=== PATIENT | female | born 1960 | race African-American/Black ===

== ENCOUNTER 2018-04-24 04:10 | Emergency (ER) | payer OTHER ==
[~2018-04-24] VITALS: Ht 167.6 cm; Wt 89.8 kg
[~2018-04-24 04:10] MED LIST: CYCLOBENZAPRINE10 MG ORAL; GABAPENTIN; IBUPROFEN600 MG ORAL; IMITREX50 MG ORAL; MACROBID100 MG ORAL; MOBIC7.5 MG ORAL; NKM; NORCO 5-325 TA1 EACH ORAL; NORCO 7.5/3251 EA ORAL; PERCOCET 5-3251 EACH ORAL; TRAMADOL HCL50 MG ORAL; VALIUM2 MG ORAL; VICODIN 5-5001 EACH PO; walker
[2018-04-24] MEDS ORDERED: KADIAN20 M1 PO (04:32)
[2018-04-24] MEDS ORDERED: GABAPENTIN100 MG ORAL (04:32)
--- NOTE | 2018-04-24 04:32 | Emergency Room Report ---
History of Present Illness General Chief Complaint: Abdominal pain Source: Patient Present Illness HPI Patient is a 58-year-old female presented after increased abdominal pain. Patient prior history of chronic pain. She had prior hysterectomy. The patient reports having increased nausea and vomiting. The patient has a prior history of opiate dependence due to chronic pain. The patient states takes morphine as well as Percocet The patient reports having prior history of chronic joint pain as well as neuropathy. Allergies: Coded Allergies: ASPIRIN (Unverified Adverse Reaction, Mild, GETS NAUSEATED., 02/28/16) PT STATES SHE GETS NAUSEATED. Patient History Reviewed Nursing Documentation: PMH: Agreed; PSxH: Agreed Nursing Documentation-PMH Hx Neurological Problems: No - hysterectomy Review of Systems All Other Systems: negative except mentioned in HPI Physical Exam Sp02 EP Interpretation: reviewed, normal General Appearance: normal inspection, well appearing, no apparent distress, alert, GCS 15 Head: atraumatic ENT: normal ENT inspection, hearing grossly normal, normal voice Neck: normal inspection, full range of motion, supple, no bony tend Respiratory: normal inspection, lungs clear, normal breath sounds, no respiratory distress, no retraction, no wheezing Cardiovascular #1: regular rate, rhythm, no edema Gastrointestinal: normal inspection, normal bowel sounds, non tender, soft, no guarding, no hernia Genitourinary: no CVA tenderness Musculoskeletal: normal inspection, back normal, normal range of motion Neurologic: normal inspection, alert, oriented x3, responsive, transmission specialist III-XII nml as tested, speech normal Psychiatric: normal inspection, judgement/insight normal, mood/affect normal Skin: normal inspection, normal color, no rash Medical Decision Making Diagnostic Impression: Primary Impression: Abdominal pain Additional Impressions: Opiate withdrawal Substance abuse ER Course Patient presented for abdominal pain. Differential diagnoses included ischemic bowel, appendicitis, perforated viscus, abdominal aortic aneurysm, inferior myocardial infarction, viral gastroenteritis. Because of complexity of patient' s case laboratory testing and imaging studies were ordered.Patient was noted to have evidence of substance abuse on laboratory testing. The CT abdomen pelvis read by radiology showed no acute intra-abdominal pathology. The patient is advised to follow-up with her primary care physician she is given prescription for Keflex for presumed bacterial enteritis.The patient is advised to follow up with primary care doctor in 1-2 days. Patient is advised to return if any worsening condition or if any changes in status that are concerning. This report is dictated with [employer] technician software which may occasionally lead to discrepancies related to use of this software. Labs Test 04/24/18 04:27 04/24/18 06:00 White Blood Count 21.9 K/UL (4.8-10.8) Red Blood Count 5.20 M/UL (4.20-5.40) Hemoglobin 15.3 G/DL (12.0-16.0) Hematocrit 47.4 % (37.0-47.0) Mean Corpuscular Volume 91 FL (80-99) Mean Corpuscular Hemoglobin 29.5 PG (27.0-31.0) Mean Corpuscular Hemoglobin Concent 32.4 G/DL (32.0-36.0) Red Cell Distribution Width 15.0 % (11.6-14.8) Platelet Count 376 K/UL (150-450) Mean Platelet Volume 6.8 FL (6.5-10.1) Neutrophils (%) (Auto) % (45.0-75.0) Lymphocytes (%) (Auto) % (20.0-45.0) Monocytes (%) (Auto) % (1.0-10.0) Eosinophils (%) (Auto) % (0.0-3.0) Basophils (%) (Auto) % (0.0-2.0) Neutrophils % (Manual) 82 % (45-75) Lymphocytes % (Manual) 10 % (20-45) Monocytes % (Manual) 5 % (1-10) Eosinophils % (Manual) 0 % (0-3) Basophils % (Manual) 0 % (0-2) Band Neutrophils 3 % (0-8) Platelet Estimate Adequate Platelet Morphology Normal Sodium Level 143 MMOL/L (136-145) Potassium Level 3.9 MMOL/L (3.5-5.1) Chloride Level 104 MMOL/L (98-107) Carbon Dioxide Level 29 MMOL/L (21-32) Anion Gap 11 mmol/L (5-15) Blood Urea Nitrogen 11 mg/dL (7-18) Creatinine 1.1 MG/DL (0.55-1.30) Estimat Glomerular Filtration Rate > 60 mL/min (>60) Glucose Level 179 MG/DL (74-106) Calcium Level 9.8 MG/DL (8.5-10.1) Total Bilirubin 0.5 MG/DL (0.2-1.0) Aspartate Amino Transf (AST/SGOT) 25 U/L (15-37) Alanine Aminotransferase (ALT/SGPT) 14 U/L (12-78) Alkaline Phosphatase 90 U/L (46-116) Total Protein 9.4 G/DL (6.4-8.2) Albumin 4.1 G/DL (3.4-5.0) Globulin 5.3 g/dL Albumin/Globulin Ratio 0.8 (1.0-2.7) Lipase 75 U/L (73-393) Urine Color Yellow Urine Appearance Clear Urine pH 6 (4.5-8.0) Urine Specific Baker 1.020 (1.005-1.035) Urine Protein 3+ (NEGATIVE) Urine Glucose (UA) Negative (NEGATIVE) Urine Ketones 1+ (NEGATIVE) Urine Occult Blood 4+ (NEGATIVE) Urine Nitrite Negative (NEGATIVE) Urine Bilirubin Negative (NEGATIVE) Urine Urobilinogen 1 MG/DL (0.0-1.0) Urine Leukocyte Esterase 1+ (NEGATIVE) Urine RBC 10-15 /HPF (0 - 2) Urine WBC 0-2 /HPF (0 - 2) Urine Squamous Epithelial Cells Few /LPF (NONE/OCC) Urine Amorphous Sediment Few /LPF (NONE) Urine Bacteria Few /HPF (NONE) Urine Mucus Moderate /LPF (NONE/OCC) Urine Opiates Screen Positive (NEGATIVE) Urine Barbiturates Screen Negative (NEGATIVE) Phencyclidine (PCP) Screen Negative (NEGATIVE) Urine Amphetamines Screen Negative (NEGATIVE) Urine Benzodiazepines Screen Negative (NEGATIVE) Urine Cocaine Screen Positive (NEGATIVE) Urine Marijuana (THC) Screen Positive (NEGATIVE) Status: improved Disposition: HOME, SELF-CARE Condition: Stable Scripts Dicyclomine Hcl* (DICYCLOMINE HCL*) 10 Mg Capsule 10 MG PO QID, #30 CAP Prov: Silvino Martinez MD 04/24/18 Ondansetron (Zofran) 4 Mg Tablet 4 MG ORAL Q6H PRN for Nausea & Vomiting, #20 TAB Prov: Silvino Martinez MD 04/24/18 Cephalexin* (KEFLEX*) 500 Mg Capsule 500 MG ORAL EVERY 6 HOURS, #28 CAP Prov: Silvino Martinez MD 04/24/18 Silvino Martinez MD Apr 24, 2018 04:32
[2018-04-24 04:36] VITALS: BP 146/120
[2018-04-24] MEDS ORDERED: Mylanta II UD 30ml ORAL ONE (05:00)
[2018-04-24] MEDS ORDERED: Lidocaine 2% Visc 15ml soln ORAL ONE (05:00)
[2018-04-24] MEDS ORDERED: Dicyclomine HCl 10mg/5ml oral soln ORAL ONE (05:00)
[2018-04-24] MEDS ORDERED: Morphine Sulfate 4mg/ml Inj (IV USE ONLY) IVP ONE (05:00)
[2018-04-24 05:13] LABS: HEMATOCRIT 47.4 % (37.0-47.0); HEMOGLOBIN 15.3 G/DL (12.0-16.0); MEAN CORPUSCULAR VOLUME 91 FL (80-99); PLATELET COUNT 376 K/UL (150-450); WHITE BLOOD COUNT 21.9 K/UL (4.8-10.8)
[2018-04-24 05:29] LABS: ANION GAP 11 mmol/L (5-15); BLOOD UREA NITROGEN 11 mg/dL (7-18); CALCIUM 9.8 MG/DL (8.5-10.1); CARBON DIOXIDE 29 MMOL/L (21-32); CHLORIDE 104 MMOL/L (98-107); CREATININE 1.1 MG/DL (0.55-1.30); POTASSIUM 3.9 MMOL/L (3.5-5.1); SODIUM 143 MMOL/L (136-145)
[2018-04-24 05:32] LABS: ALANINE AMINOTRANSFERASE 14 U/L (12-78); ALBUMIN 4.1 G/DL (3.4-5.0); ALBUMIN/GLOBULIN RATIO 0.8 (1.0-2.7); ALKALINE PHOSPHATASE 90 U/L (46-116); ASPARTATE AMINO TRANSFERASE 25 U/L (15-37); BILIRUBIN,TOTAL 0.5 MG/DL (0.2-1.0)
[2018-04-24 05:59] LABS: APPEARANCE,URINE CLEAR; BILIRUBIN, URINE NEGATIVE (NEGATIVE); GLUCOSE, URINE (UA) NEGATIVE (NEGATIVE); KETONES,URINE 1+ (NEGATIVE); LEUKOCYTE ESTERASE ,URINE 1+ (NEGATIVE); NITRITE,URINE NEGATIVE (NEGATIVE); PH,URINE 6 (4.5-8.0); PROTEIN,URINE 3+ (NEGATIVE); UROBILINOGEN,URINE 1 MG/DL (0.0-1.0)
[2018-04-24 06:14] VITALS: BP 112/47
[2018-04-24] MEDS ORDERED: Isovue-300 100ml vial INJ PRN (06:15)
[2018-04-24 06:16] LABS: COLOR,URINE YELLOW
[2018-04-24] MEDS ORDERED: DICYCLOMINE HCL10 MG PO (07:29)
[2018-04-24] MEDS ORDERED: ZOFRAN4 M1 ORAL (07:29)
[2018-04-24] MEDS ORDERED: CEPHALEXIN500 MG ORAL (07:29)
[2018-04-24] MEDS ORDERED: Ketorolac 30mg Inj IV ONE (07:30)
[2018-04-24] MEDS ORDERED: Ketorolac 30mg Inj ONE (07:33)
[2018-04-24 07:42] VITALS: BP 112/47
--- NOTE | 2018-04-24 11:15 | Diagnostic Imaging Report ---
Clinical Indication: Abdominal pain for 2 days Technique: No oral contrast utilized, per emergency room physician request IV administration nonionic contrast. Venous phase spiral acquisition obtained through the abdomen and pelvis. Multiplanar reconstructions were generated. Total dose length product 878.84 mGycm. CTDIvol(s) 17.05 mGy. Dose reduction achieved using automated exposure control Comparison: none Findings: The appendix is normal. There is a small amount of free fluid in the pelvis. There are scattered small colonic diverticula. No evidence of diverticulitis. No definite small bowel dilatation demonstrated. No free intraperitoneal gas or intramural air. Distal esophagus, stomach, duodenum are unremarkable. The liver, gallbladder, bile ducts, pancreas, spleen, adrenals, kidneys are unremarkable. No retroperitoneal or mesenteric mass or adenopathy. The uterus is absent. No pelvic mass or adenopathy. The included lung bases are clear. The bones demonstrate degenerative spondylosis changes. Impression: Small amount of free pelvic fluid, likely physiologic No definite acute abnormality Diverticulosis. No evidence of diverticulitis Evidence of prior hysterectomy This agrees with the preliminary interpretation provided overnight by [facility]. The CT scanner at [facility] is accredited by the [employer] and the scans are performed using protocols designed to limit radiation exposure to as low as reasonably achievable to attain images of sufficient resolution adequate for diagnostic evaluation.
== END 2018-04-24 07:40 | disposition home or self-care (01) ==
LOC: EMR 04:26
DX: R10.9 Unspecified abdominal pain (principal); F11.23 Opioid dependence with withdrawal; T40.2X5A Adverse effect of other opioids, initial encounter; Z88.6 Allergy status to analgesic agent; Z90.710 Acquired absence of both cervix and uterus; G89.29 Other chronic pain; G62.9 Polyneuropathy, unspecified; M25.50 Pain in unspecified joint; Y92.9 Unspecified place or not applicable
CPT/HCPCS: 36415; 74177; 80053; 80307; 81003; 83690; 85007; 85025; 96361; 96374; 96375; 99284; J1885; J2270; J2405; Q9967

== ENCOUNTER 2019-03-30 22:28 | Inpatient (IN) | payer OTHER ==
[~2019-03-30] VITALS: Ht 165.1 cm; Wt 90.9 kg
[~2019-03-30 22:28] MED LIST changes: +CEPHALEXIN500 MG ORAL; +DICYCLOMINE HCL10 MG PO; +GABAPENTIN100 MG ORAL; +KADIAN20 M1 PO; +ZOFRAN4 M1 ORAL
[2019-03-30] MEDS ORDERED: Isovue-300 100ml vial INJ PRN (23:00)
--- NOTE | 2019-03-30 23:00 | Emergency Room Report ---
History of Present Illness General Chief Complaint: Abdominal Pain Source: Patient Present Illness HPI 59-year-old female history of neuropathy, presents with lower abdominal pain x3 days, later than 7 episodes of diarrhea, with some nausea, vomiting, she endorses lower abdominal pain as aching nature, no aggravating alleviating factors, constant in nature, she thinks she may have had food poisoning, she denies any chest pain shortness of breath, no dyspnea on exertion, she is feeling a little dehydrated. Allergies: Coded Allergies: ASPIRIN (Unverified Adverse Reaction, Mild, GETS NAUSEATED., 02/28/16) PT STATES SHE GETS NAUSEATED. Patient History Past Medical History: see triage record Last Menstrual Period: 2005 Now: No Reviewed Nursing Documentation: PMH: Agreed; PSxH: Agreed Nursing Documentation-PMH Past Medical History: No History, Except For Hx Neurological Problems: No - hysterectomy Review of Systems Constitutional: Reports: chills; Denies: fever Eye: Denies: blurred vision, double vision ENT: Denies: throat pain, nasal discharge Respiratory: Denies: cough, shortness of breath Cardiovascular: Denies: chest pain, palpitations Gastrointestinal: Reports: abdominal pain, diarrhea, nausea, vomiting Genitourinary: Denies: dysuria, pain Musculoskeletal: Denies: back pain, muscle pain Skin: Denies: rash, lesions Neurological: Denies: headache, focal weakness Hematologic/Lymphatic: Denies: easy bleeding, easy bruising All Other Systems: negative except mentioned in HPI Physical Exam Vital Signs Date Time Temp Pulse Resp B/P (MAP) Pulse Ox O2 Delivery O2 Flow Rate FiO2 03/30/19 22:42 97.5 100 16 72/55 (61) 96 Room Air Sp02 EP Interpretation: reviewed, normal General Appearance: well appearing, no apparent distress, alert Head: normocephalic, atraumatic Eyes: bilateral eye PERRL, bilateral eye EOMI ENT: uvula midline, dry mucus membranes Neck: supple, thyroid normal, supple/symm/no masses Respiratory: lungs clear, no respiratory distress, no retraction, no accessory muscle use Cardiovascular #1: normal peripheral pulses, regular rate, rhythm, no edema, no gallop, no murmur Gastrointestinal: non tender, soft, no guarding, no rebound Musculoskeletal: normal inspection Neurologic: alert, oriented x3 Psychiatric: mood/affect normal Skin: no rash, warm/dry Procedures Critical Care Time Critical Care Time Critical Care time of 36 minutes was performed exclusive of billable procedures. Patient with hypotension, oliguria, requiring massive fluid rehydration, patient required ICU care and coordination between specialties, patient to be admitted for acute renal failure secondary to dehydration most likely pre renal Medical Decision Making Diagnostic Impression: Primary Impression: Acute renal failure Additional Impressions: Acute kidney injury Oliguria Leukocytosis Hypotension Enteritis ER Course 59-year-old female presents tachycardic, hypotensive after copious amounts of diarrhea over the past 3 days, patient states she is not producing any urine, patient presents for evaluation, patient found to have oliguria, BHAVESH, patient with a significantly reduced GFR, patient was resuscitated with 3 L of fluid, CT scan was conducted, patient will need upgrade to the ICU given her hypotension, and renal failure, Spoke with Dr. Hatfield 12:23AM, patient is not amenable to transfer, patient will require inpatient admission at our hospital Reevaluation 1:21 AM, blood pressure 100/65 Patient admitted to ICU Zosyn given, patient admitted to Dr. Wiggins Laboratory Tests Test 03/30/19 22:50 White Blood Count 21.1 K/UL (4.8-10.8) H Red Blood Count 5.36 M/UL (4.20-5.40) Hemoglobin 16.5 G/DL (12.0-16.0) H Hematocrit 50.0 % (37.0-47.0) H Mean Corpuscular Volume 93 FL (80-99) Mean Corpuscular Hemoglobin 30.8 PG (27.0-31.0) Mean Corpuscular Hemoglobin Concent 33.0 G/DL (32.0-36.0) Red Cell Distribution Width 14.9 % (11.6-14.8) H Platelet Count 459 K/UL (150-450) H Mean Platelet Volume 6.7 FL (6.5-10.1) Neutrophils (%) (Auto) % (45.0-75.0) Lymphocytes (%) (Auto) % (20.0-45.0) Monocytes (%) (Auto) % (1.0-10.0) Eosinophils (%) (Auto) % (0.0-3.0) Basophils (%) (Auto) % (0.0-2.0) Differential Total Cells Counted 100 Neutrophils % (Manual) 70 % (45-75) Lymphocytes % (Manual) 19 % (20-45) L Monocytes % (Manual) 8 % (1-10) Eosinophils % (Manual) 3 % (0-3) Basophils % (Manual) 0 % (0-2) Band Neutrophils 0 % (0-8) Platelet Estimate Adequate Platelet Morphology Normal Red Blood Cell Morphology Normal Sodium Level 139 MMOL/L (136-145) Potassium Level 3.4 MMOL/L (3.5-5.1) L Chloride Level 99 MMOL/L (98-107) Carbon Dioxide Level 25 MMOL/L (21-32) Anion Gap 15 mmol/L (5-15) Blood Urea Nitrogen 27 mg/dL (7-18) H Creatinine 4.3 MG/DL (0.55-1.30) H Estimate Glomerular Filtration Rate 12.8 mL/min (>60) Glucose Level 144 MG/DL (74-106) H Lactic Acid Level 0.90 mmol/L (0.4-2.0) Calcium Level 10.2 MG/DL (8.5-10.1) H Magnesium Level 2.4 MG/DL (1.8-2.4) Total Bilirubin 0.9 MG/DL (0.2-1.0) Aspartate Amino Transferase (AST) 17 U/L (15-37) Alanine Aminotransferase (ALT) 10 U/L (12-78) L Alkaline Phosphatase 75 U/L (46-116) Creatine Kinase MB 0.7 NG/ML (0.0-3.6) Total Protein 9.3 G/DL (6.4-8.2) H Albumin 5.1 G/DL (3.4-5.0) H Globulin 4.2 g/dL Albumin/Globulin Ratio 1.2 (1.0-2.7) Lipase 114 U/L (73-393) EKG Diagnostic Results EKG Time: 23:09 EP Interpretation: SR, rate 97, QTc 449, no acute ST elevations, normal axis Rate: normal Rhythm: NSR ST Segments: no acute changes Rhythm Strip Diag. Results Rhythm Strip Time: 00:24 EP Interpretation: yes Rate: 87 Rhythm: NSR, no PVC's, no ectopy Chest X-Ray Diagnostic Results Chest X-Ray Diagnostic Results : Chest X-Ray Ordered: Yes # of Views/Limited/Complete: 1 View Indication: Other - abdominal pain EP Interpretation: Yes Interpretation: no consolidation, no effusion, no pneumothorax, no acute cardiopulmonary disease Impression: No acute disease Electronically Signed by: Tito Hay MD CT/MRI/US Diagnostic Results CT/MRI/US Diagnostic Results : Impression CT ABDOMEN & PELVIS With Contrast: Comparison: 04/24/18 Hepatosplenomegaly and mild diffuse hepatic steatosis. No acute findings involving the unenhanced solid abdominal organs. The gallbladder and biliary tree are unremarkable. Diffuse mild wall thickening of the small bowel with some segments of mild fluid distention. Adjacent inflammatory changes in the small bowel mesentery. Small to moderate amount of free fluid inferior abdomen and dependent pelvis. Negative for high-grade obstruction, pneumatosis or pneumoperitoneum. Findings are most consistent with moderate acute enteritis likely infectious or inflammatory. Borderline enlargement of the appendix measuring just greater than 6 mm. Adjacent inflammatory changes likely secondary to the diffuse changes seen throughout from the diffuse enteritis. Radiologist: Chevy Christianson MD Study ready at 00:31 and initial results transmitted at 00:38 Last Vital Signs Date Time Temp Pulse Resp B/P (MAP) Pulse Ox O2 Delivery O2 Flow Rate FiO2 03/30/19 22:42 97.5 100 16 72/55 (61) 96 Room Air Disposition: ADMITTED INPATIENT Condition: Critical Tito Hay MD Mar 30, 2019 23:00
--- NOTE | 2019-03-30 23:00 | NUR ---
ED Nurse Note: Recieved pt from home, here with c/o nausea, vomiting and diarrhea very severe for past 3 days, pt is actively vomiting phlem, pt rates abd pain at 8/10, cramping and sharp, denies cp, no sob or labored breathing, pt is very un-comfortable, immediately assisted with gowning, placed onc ardiac monitoring, pt has low b/p, md immediately informed, placed iv line and labs done, will continue to closely monitor.
[2019-03-30 23:15] VITALS: BP 76/51
[2019-03-30 23:23] LABS: HEMOGLOBIN 16.5 G/DL (12.0-16.0); MEAN CORPUSCULAR VOLUME 93 FL (80-99); PLATELET COUNT 459 K/UL (150-450); RED BLOOD COUNT 5.36 M/UL (4.20-5.40); RED CELL DISTRIBUTION WIDTH 14.9 % (11.6-14.8); WHITE BLOOD COUNT 21.1 K/UL (4.8-10.8)
[2019-03-30] MEDS ORDERED: Morphine Sulfate 4mg/ml Inj (IV USE ONLY) IVP ONE (23:30)
[2019-03-30 23:34] LABS: ANION GAP 15 mmol/L (5-15); BLOOD UREA NITROGEN 27 mg/dL (7-18); CALCIUM 10.2 MG/DL (8.5-10.1); CARBON DIOXIDE 25 MMOL/L (21-32); CHLORIDE 99 MMOL/L (98-107); CREATININE 4.3 MG/DL (0.55-1.30); POTASSIUM 3.4 MMOL/L (3.5-5.1); SODIUM 139 MMOL/L (136-145)
[2019-03-30 23:35] VITALS: BP 77/53
[2019-03-30 23:47] LABS: ALANINE AMINOTRANSFERASE 10 U/L (12-78); ALBUMIN 5.1 G/DL (3.4-5.0); ALBUMIN/GLOBULIN RATIO 1.2 (1.0-2.7); ALKALINE PHOSPHATASE 75 U/L (46-116); ASPARTATE AMINO TRANSFERASE 17 U/L (15-37); BILIRUBIN,TOTAL 0.9 MG/DL (0.2-1.0); CKMB 0.7 NG/ML (0.0-3.6)
[2019-03-31] VITALS (24 sets, daily range): BP systolic 94–112; BP diastolic 39–81
--- NOTE | 2019-03-31 00:05 | NUR ---
ED Nurse Note: Pt taken to imaging for ct-scan, awake and alert, iv lines x 2 with fluids infusing, will resume care when pt returns.
--- NOTE | 2019-03-31 00:39 | Diagnostic Imaging Report ---
Indication: Abdominal pain Technique: Continuous helical transaxial imaging of the abdomen and pelvis was obtained from the lung bases to the pubic symphysis. No intravenous contrast was administered. Coronal 2-D reformats were also obtained. Automatic Exposure Control was utilized. Total Dose length Product (DLP): 901.[address] Dose Index Volume (CTDIvol): 18.84 mGy Comparison: none Findings: Generalized dilatation of small bowel noted throughout the abdomen with some thickening of the bowel wall consistent with enteritis/ileus. No nephrolithiasis or hydronephrosis demonstrated. Noncontrast solid organ evaluation is negative. Gallbladder is contracted. There is no ascites. IMPRESSION: Enteritis/ileus suspected. [facility] has communicated the preliminary results to the Emergency Department. Their findings are largely concordant with this report. The CT scanner at [facility] is accredited by the [employer] and the scans are performed using dose optimization techniques as appropriate to a performed exam including Automatic Exposure control.
[2019-03-31] MEDS ORDERED: Piperacillin/Tazobactam 3.375 GM in NS 110 ML IVPB ONE (00:45)
--- NOTE | 2019-03-31 00:50 | NUR ---
ED Nurse Note: Pt returned from imaging department, inserted oro, recieved assistance from lita boo, size 14 fr inserted, pt noted with severe, green colored rash to socorro area with sores and green discharge, pt states has been like that for some time, oro inserted with drops of urine noted, md at bedside and aware, pt c/o severe pain, was medicated earlier but states not effective, pt is crying, also inserted new iv line in right ac to recieve fluids faster, pt on monitoring, willr esume care and prepare for icu admission.
[2019-03-31] MEDS ORDERED: fentaNYL 100 mcg/2 mL IV ONE (01:15)
--- NOTE | 2019-03-31 01:45 | NUR ---
ED Nurse Note: Pt returned from imaging, oro cath inserted, now with small amount of urine, fluids given as ordered, b/p increasing, pt also medicated for pain, fentanyl very effective with pain level decreasing to 5/10, no cp, no sob or labored breathing, pt belongings list completed and med rec, all orders placed, report called to lita gutierrez on unit for icu admission, pt being taken to unit via gurney with rn-er-tech and acls protocols, nad noted during pt transfer to unit.
--- NOTE | 2019-03-31 02:35 | NUR ---
NURSE NOTES:Received pt from ER with Dx diarrhea, dehydration and abdominal pain, awake, alert oriented x 3 Cline x4, with grimace face due to abdominal pain. SR on the monitor, bp stable. Afbrile, Heplock x2 ,left and RT AC, patent to flushes. Skin is intact. Will continue to monitor.
--- NOTE | 2019-03-31 02:55 | NUR ---
NURSE NOTES:Called DR Wiggins for admission orders. _ awaiting md to call back.
--- NOTE | 2019-03-31 03:26 | NUR ---
NURSE NOTES: second call to Dr kim was made. - Still awaiting for md to call back. animal science professorCARRIE Yun was aware.
[2019-03-31] MEDS ORDERED: NS w/KCl 20mEq 1000ml 1,000 ML IV SCH (03:30)
--- NOTE | 2019-03-31 04:20 | NUR ---
NURSE NOTES:3rd call was made to Dr Rush-awaiting for a call back.
--- NOTE | 2019-03-31 04:25 | NUR ---
NURSE NOTES:Aware Ng communications equipment supervisor Terence Tomlinson that Md is not calling back yet -up to this time. Ng communications equipment supervisor verbalized that he will call md after the 3rd call.(if not calling back)
[2019-03-31] MEDS: Morphine Sulfate 2mg/ml Inj(IV/IM USE ONLY) IVP PRN ×4 (05:33→19:28)
--- NOTE | 2019-03-31 05:35 | NUR ---
NURSE NOTES: Morphine 2mg ivp given for pain. FLACC 8
[2019-03-31 05:55] LABS: HEMATOCRIT 43.1 % (37.0-47.0); HEMOGLOBIN 13.8 G/DL (12.0-16.0); MEAN CORPUSCULAR VOLUME 96 FL (80-99); PLATELET COUNT 305 K/UL (150-450); RED CELL DISTRIBUTION WIDTH 15.7 % (11.6-14.8); WHITE BLOOD COUNT 18.4 K/UL (4.8-10.8)
[2019-03-31 06:29] LABS: ALANINE AMINOTRANSFERASE < 6 U/L (12-78); ALBUMIN 3.7 G/DL (3.4-5.0); ALBUMIN/GLOBULIN RATIO 0.9 (1.0-2.7); ALKALINE PHOSPHATASE 56 U/L (46-116); ANION GAP 12 mmol/L (5-15); ASPARTATE AMINO TRANSFERASE 16 U/L (15-37); BILIRUBIN,TOTAL 0.7 MG/DL (0.2-1.0); BLOOD UREA NITROGEN 30 mg/dL (7-18); CALCIUM 8.7 MG/DL (8.5-10.1); CARBON DIOXIDE 22 MMOL/L (21-32); CHLORIDE 105 MMOL/L (98-107); CREATININE 4.1 MG/DL (0.55-1.30); POTASSIUM 3.6 MMOL/L (3.5-5.1); SODIUM 139 MMOL/L (136-145)
--- NOTE | 2019-03-31 06:30 | NUR ---
NURSE NOTES:Pain free and sleeping well at this time. VSS
--- NOTE | 2019-03-31 07:44 | NUR ---
HAND-OFF: Report given to Nila BUTLER.
--- NOTE | 2019-03-31 07:45 | NUR ---
NURSE NOTES: RECEIVED PATIENT FROM Glenn RAYMOND RN. PATIENT IS SEEN LYING IN BED, ASLEEP, AROUSABLE AND RESPONSIVE. HOOKED TO CHIEF SUPPLY CHAIN OFFICER, NOTED HR AT 77. ON ROOM AIR. NO SIGNS OF CARDIO OR DISTRESS OF THE MOMENT. DENIES ANY PAIN OF THE MOMENT. NOTED IRBY CONNECTED TO BAG, PATENT. IV'S ON R AC G20 AND L AC G20, SL. CALL LIGHT WITHIN REACH. BED AT LOWEST POSITION. SIDE RAILS UP. WILL CONTINUE TO MONITOR.
--- NOTE | 2019-03-31 07:46 | NUR ---
NURSE NOTES: PATIENT REFUSED TO SEND BELONGINGS TO THE [facility].
[2019-03-31] MEDS: NS w/KCl 20mEq 1000ml 1,000 ML IV SCH ×2 (08:16→14:50)
--- NOTE | 2019-03-31 08:50 | NUR ---
NURSE NOTES: SEEN AND EXAMINED BY EZRA MENDEZ. MADE AWARE OF ABDL CRAMPING. WILL CONTINUE TO MONITOR.
--- NOTE | 2019-03-31 09:42 | NUR ---
NURSE NOTES: PATIENT C/O ABDL PAIN, DUE PAIN MEDS GIVEN. NO RESPI DISTRESS OF THE MOMENT. WILL CONTINUE TO MONITOR.
--- NOTE | 2019-03-31 10:01 | NUR ---
NURSE NOTES: SEEN AND EXAMINED BY DR SANCHEZ WITH NEW ORDERS. PATIENT SEEN LYING IN BED, NO SIGNS OF DISTRESS OF THE MOMENT. WILL CONTINUE TO MONITOR.
--- NOTE | 2019-03-31 10:27 | Diagnostic Imaging Report ---
Indication: Chest pain Comparison: 09/17/2007 A single view chest radiograph was obtained. Findings: Cardiomediastinal appearance is within normal limits for age. The lungs are clear. Pulmonary vascularity is appropriate. The diaphragmatic contour is smooth and costophrenic angles are sharp. No pleural effusions are identified. The bones are unremarkable. Impression: No acute findings
--- NOTE | 2019-03-31 11:00 | History and Physical Report ---
DATE OF ADMISSION: 03/31/2019 REASON FOR ADMISSION: Sepsis and acute renal failure. HISTORY OF PRESENT ILLNESS: This is a 59-year-old female. She has chronic pain due to prior trauma and injuries to her back, hips and knees. She has chronic pain regimen that has been stable for some time. She has not had any recent travel history or new medications initiated. She notes that about four or five days ago, she got food poisoning, although the remainder of her family ate the same meal and had no problems. She has started having diarrhea which has progressed for the subsequent four days with nausea and vomiting as well and crampy abdominal pain that became quite severe and constant in nature last evening, which prompted her to come to the emergency room. She has not had any blood in her stool or vomitus. She has not had any fevers or chills. PAST MEDICAL HISTORY: Status post hysterectomy, status post traumatic injury as described above. ALLERGIES: Aspirin. MEDICATIONS: Reviewed. SOCIAL HISTORY: Denies alcohol or substance abuse. No current smoking. REVIEW OF SYSTEMS: She had a colonoscopy "many years ago" and thinks she may have had an ulcer, but does not have any other details. Otherwise all systems negative. PHYSICAL EXAMINATION: GENERAL: Awake and alert, in moderate distress due to abdominal cramping. VITAL SIGNS: In the emergency room, she was afebrile with blood pressure 72/55, heart rate 100, and respiratory rate 16. She was given several fluid challenges. Presently her blood pressure is 96/52, heart rate 78, and respiratory 15. She is afebrile. HEENT: Conjunctivae pink. Sclerae are anicteric. Oropharynx clear. Mucous membranes dry. NECK: Supple. Jugular venous pressure normal. LUNGS: Clear. No chest wall deformity or breast masses. CARDIAC: Regular rhythm and rate. Normal S1, S2 with no murmur, rub or gallop. ABDOMEN: Slightly distended, but soft, diffusely tender with no guarding. EXTREMITIES: Revealed no clubbing, cyanosis, or edema. SKIN: Intact. LABORATORY DATA: White count was 21.1 in the emergency room with hemoglobin 16.5, and platelets of 459,000. Sodium 139, potassium 3.4, bicarbonate 25, BUN 27, and creatinine 4.3. Glucose 144. Lactic acid 0.9. Albumin 5.1. CAT scan of the abdomen and pelvis revealed hepatic steatosis, hepatosplenomegaly, diffuse thickening of the small bowel with some fluid distention and inflammation of the mesentery. There was small amount of free fluid in the inferior abdomen and pelvis. No obstruction. Findings were consistent with enteritis. IMPRESSION: 1. Acute gastroenteritis. 2. Sepsis. 3. Hypokalemia. 4. Acute renal failure. 5. 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 6. Hypovolemic and septic shock. PLAN: 1. ICU monitoring. 2. Volume resuscitation. 3. Broad spectrum antimicrobials. 4. Potassium replacement. 5. GI consultation. 6. Infectious Disease consultation. 7. Renal consultation. 8. Hold gabapentin until renal function stabilizes. 9. Avoid antidiarrheals at this time. Stool studies have been requested as well as stool occult blood testing. Condition critical. Prognosis is guarded. Eder Wiggins M.D. DR: OLYA JOB#: [id number] CC:
--- NOTE | 2019-03-31 11:26 | NUR ---
NURSE NOTES: SEEN MOTHER AT THE BEDSIDE. PATIENT IS SEEN COMFORTABLY LYING IN BED. PAIN SCALE OF 3. ON ROOM AIR. WILL CONTINUE TO MONITOR.
[2019-03-31] MEDS: Piperacillin/Tazobactam 3.375 GM in NS 110 ML IVPB SCH (12:28)
--- NOTE | 2019-03-31 12:30 | NUR ---
NURSE NOTES: SEEN AND EXAMINED BY DR HUNTLEY WITH NEW ORDERS MADE. URINE SAMPLE SENT TO LAB. STILL WITH ABDL CRAMPING BUT TOLERABLE AND REFUSED PAIN MEDS FOR NOW. WILL CONTINUE TO MONITOR.
[2019-03-31 12:38] LABS: CHOLESTEROL 212 MG/DL (< 200); HDL CHOLESTEROL 42 MG/DL (40-60); PHOSPHORUS 5.1 MG/DL (2.5-4.9); TRIGLYCERIDES 272 MG/DL (30-150)
[2019-03-31 13:20] LABS: APPEARANCE,URINE SLIGHTLY CLOUDY; BILIRUBIN, URINE 1+ (NEGATIVE); GLUCOSE, URINE (UA) NEGATIVE (NEGATIVE); KETONES,URINE 1+ (NEGATIVE); LEUKOCYTE ESTERASE ,URINE 2+ (NEGATIVE); NITRITE,URINE POSITIVE (NEGATIVE); PH,URINE 5 (4.5-8.0); PROTEIN,URINE 3+ (NEGATIVE); UROBILINOGEN,URINE 1 MG/DL (0.0-1.0)
[2019-03-31 13:31] LABS: COLOR,URINE YELLOW
--- NOTE | 2019-03-31 13:47 | NUR ---
Social Work This Sw met with patient, who is currently in the ICU. Patient appears alert/oriented x4, making her own decisions. Patient explains she would like her mother, Robinson Arce ([phone]) to be contacted, as needed, if patient is unable to verbalize decision making. Patient does not have an Advance Directive, while requesting full code, full treatment at this time. Patient states she resides with her fiance,Jermain Ramos and her granddaughter (age 10). Patient explains she has full custody of her granddaughter, due to her daughter has a history of drug abuse (and doesn't know she has full custody). DCFS was never involved, according to patient. This SW advised DCFS, as needed (in any case that the granddaughter is in danger being with the mother; contact number for DCFS provided to patient). Patient states granddaughter cannot be left alone with her mother due to being unsafe with driving, etc while she has been intoxicated with drugs and alcohol. Patient remains independent overall, denied any substance abuse, with a history of depression. Patient explains her mood have been stable, while taking an antidepressant (patient denied suicidal/homicidal ideations). Patient plans to discharge to home with no discharge planning needs identified at this time.
--- NOTE | 2019-03-31 14:03 | Diagnostic Imaging Report ---
Indication:Elevated Bun and Creatinine. Technique: Grayscale and duplex Doppler imaging of the kidneys performed. Comparison: None Findings: The size, contour, and echogenicity of both kidneys are within normal limits. There is no hydronephrosis. The IVC and urinary bladder are unremarkable. Right kidney is 11.2 cm in length. The left kidney is 10 cm in length. IMPRESSION: Negative evaluation
--- NOTE | 2019-03-31 14:22 | NUR ---
NURSE NOTES: PATIENT C/O ABDOMINAL CRAMPING. PRN IV MED GIVEN. VS. WILL CONTINUE TO MONITOR.
--- NOTE | 2019-03-31 14:51 | Consultation ---
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 Allergies: ASPIRIN (Unverified Adverse Reaction, Mild, GETS NAUSEATED., 02/28/16) PT STATES SHE GETS NAUSEATED. Last Menstrual Period: 2005 Past Medical History: No History, Except For Hx Neurological Problems: No - hysterectomy denied DM or HTN . Assessment/Plan Acute renal failure: Etiology?? Acute kidney injury Oliguria Hypotension Leukocytosis, sepsis , Enteritis CALLI Kidney Urine studies hydrate antibiotics monitor renal parameters Avoid nephrotoxics Sherman Martinez MD Mar 31, 2019 14:51
--- NOTE | 2019-03-31 14:55 | Cardiology Report ---
APPROVED REPORT EKG Measurement Heart [id number] Normal sinus rhythm Right atrial enlargement Nonspecific T wave abnormality Abnormal ECG
--- NOTE | 2019-03-31 14:57 | NUR ---
*-* INSURANCE *-* AVAILABLE CLINICALS FAXED TO: DIOGENES BARKER: REE P- [phone] [id number] F- [phone]..........REVIEW/CLINICAL
[2019-03-31] MEDS ORDERED: Pantoprazole Inj IVP SCH (15:00)
[2019-03-31] MEDS: D5NS 1,000 ML IV SCH ×2 (15:22→22:40)
--- NOTE | 2019-03-31 15:45 | NUR ---
NURSE NOTES: NEW IV LINE INSERTED ON R FA G20, RUNNING IVF D5 NS AT 150ML/HR. DUE IV MED GIVEN. ALBUMIN IV RUNNING. WILL CONTINUE TO MONITOR.
--- NOTE | 2019-03-31 16:31 | General Progress Note ---
Assessment/Plan Assessment/Plan: Assessment - acute N/V/D - Acute renal failure - Leukocytosis - CT e/o enteritis Recommendations - advance po diet as tolerated - Pepcid - Zofran PRN - Check stools for culture and C diff - IV hydration - abx - follow labs Thank you Moni Webster MD Subjective Allergies: Coded Allergies: ASPIRIN (Unverified Adverse Reaction, Mild, GETS NAUSEATED., 02/28/16) PT STATES SHE GETS NAUSEATED. Objective Last 24 Hour Vital Signs Date Time Temp Pulse Resp B/P (MAP) Pulse Ox O2 Delivery O2 Flow Rate FiO2 03/31/19 16:00 Room Air Room Air 03/31/19 16:00 78 03/31/19 16:00 98.0 68 12 94/60 (71) 98 03/31/19 15:00 70 15 99/50 (66) 93 03/31/19 14:00 72 14 96/56 (69) 97 03/31/19 13:00 72 15 104/54 (71) 98 03/31/19 12:09 76 03/31/19 12:00 Room Air Room Air 03/31/19 12:00 98.3 73 12 100/51 (67) 97 03/31/19 11:00 72 13 98/62 (74) 97 03/31/19 10:00 72 15 95/56 (69) 96 03/31/19 09:00 77 14 95/47 (63) 97 03/31/19 08:00 78 03/31/19 08:00 96.6 78 15 96/52 (67) 96 03/31/19 08:00 Room Air Room Air 03/31/19 07:00 79 16 98/59 (72) 97 03/31/19 06:00 78 16 112/56 (74) 97 03/31/19 05:00 81 16 110/56 (74) 97 03/31/19 04:00 Room Air 03/31/19 04:00 99.0 80 16 96/61 (73) 99 03/31/19 04:00 99.0 82 16 96/61 (73) 99 03/31/19 03:00 80 16 105/52 (69) 99 03/31/19 02:31 85 03/31/19 02:30 Room Air 14.0 03/31/19 02:30 98.6 79 16 106/52 (70) 99 03/31/19 02:10 98.8 80 20 103/54 98 Room Air 03/31/19 01:45 98.8 03/31/19 01:30 98.8 80 20 103/54 98 Room Air 03/31/19 00:45 98.8 88 20 94/53 98 Room Air 03/31/19 00:00 98.8 03/30/19 23:35 98.8 88 20 77/53 98 Room Air 03/30/19 23:15 98.8 88 20 76/51 98 Room Air 03/30/19 23:00 100 16 Room Air 03/30/19 22:42 97.5 100 16 72/55 (61) 96 Room Air Intake and Output 03/30/19 03/31/19 19:00 07:00 Intake Total 0 ml Output Total 530 ml Balance -530 ml Intake Oral 0 ml Output Urine Total 90 ml Stool Total 440 ml # Bowel Movements 5 Laboratory Tests 03/30/19 22:50: White Blood Count 21.1H, Red Blood Count 5.36, Hemoglobin 16.5H, Hematocrit 50.0H, Mean Corpuscular Volume 93, Mean Corpuscular Hemoglobin 30.8, Mean Corpuscular Hemoglobin Concent 33.0, Red Cell Distribution Width 14.9H, Platelet Count 459H, Mean Platelet Volume 6.7, Neutrophils (%) (Auto) , Lymphocytes (%) (Auto) , Monocytes (%) (Auto) , Eosinophils (%) (Auto) , Basophils (%) (Auto) , Differential Total Cells Counted 100, Neutrophils % ( Manual) 70, Lymphocytes % (Manual) 19L, Monocytes % (Manual) 8, Eosinophils % ( Manual) 3, Basophils % (Manual) 0, Band Neutrophils 0, Platelet Estimate Adequate, Platelet Morphology Normal, Red Blood Cell Morphology Normal, Sodium Level 139, Potassium Level 3.4L, Chloride Level 99, Carbon Dioxide Level 25, Anion Gap 15, Blood Urea Nitrogen 27H, Creatinine 4.3H, Estimat Glomerular Filtration Rate 12.8, Glucose Level 144H, Lactic Acid Level 0.90, Calcium Level 10.2H, Magnesium Level 2.4, Total Bilirubin 0.9, Aspartate Amino Transf (AST/ SGOT) 17, Alanine Aminotransferase (ALT/SGPT) 10L, Alkaline Phosphatase 75, Creatine Kinase MB 0.7, Total Protein 9.3H, Albumin 5.1H, Globulin 4.2, Albumin/ Globulin Ratio 1.2, Lipase 114 03/31/19 05:21: White Blood Count 18.4H, Red Blood Count 4.50, Hemoglobin 13.8, Hematocrit 43.1 , Mean Corpuscular Volume 96, Mean Corpuscular Hemoglobin 30.7, Mean Corpuscular Hemoglobin Concent 32.1, Red Cell Distribution Width 15.7H, Platelet Count 305, Mean Platelet Volume 6.8, Neutrophils (%) (Auto) , Lymphocytes (%) (Auto) , Monocytes (%) (Auto) , Eosinophils (%) (Auto) , Basophils (%) (Auto) , Differential Total Cells Counted 100, Neutrophils % ( Manual) 78H, Lymphocytes % (Manual) 12L, Monocytes % (Manual) 8, Eosinophils % ( Manual) 2, Basophils % (Manual) 0, Band Neutrophils 0, Platelet Estimate Adequate, Platelet Morphology Normal, Sodium Level 139, Potassium Level 3.6, Chloride Level 105, Carbon Dioxide Level 22, Anion Gap 12, Blood Urea Nitrogen 30H, Creatinine 4.1H, Estimat Glomerular Filtration Rate 13.6, Glucose Level 125H, Calcium Level 8.7, Magnesium Level 2.1, Total Bilirubin 0.7, Aspartate Amino Transf (AST/SGOT) 16, Alanine Aminotransferase (ALT/SGPT) < 6L, Alkaline Phosphatase 56, Total Protein 7.7, Albumin 3.7, Globulin 4.0, Albumin/Globulin Ratio 0.9L, Anisocytosis 1+, Hemoglobin A1c 5.6, Uric Acid 8.4H, Phosphorus Level 5.1H, Triglycerides Level 272H, Cholesterol Level 212H, LDL Cholesterol 127H, HDL Cholesterol 42, Cholesterol/HDL Ratio 5.0H, Thyroid Stimulating Hormone (TSH) 0.514 03/31/19 12:42: Urine Color Yellow, Urine Appearance Slightly cloudy, Urine pH 5, Urine Specific [place] 1.025, Urine Protein 3+H, Urine Glucose (UA) Negative, Urine Ketones 1+H, Urine Blood 4+H, Urine Nitrite PositiveH, Urine Bilirubin 1+H, Urine Ictotest Negative, Urine Urobilinogen 1H, Urine Leukocyte Esterase 2+H, Urine RBC 5-10H, Urine WBC 10-15H, Urine Squamous Epithelial Cells Few, Urine Bacteria Few Height (Feet): 5 Height (Inches): 6.00 Weight (Pounds): 198 Moni Webster MD Mar 31, 2019 16:31
--- NOTE | 2019-03-31 17:00 | Consultation ---
DATE OF CONSULTATION: 03/31/2019 INFECTIOUS DISEASES CONSULTATION CONSULTING PHYSICIAN: Kwadwo Platt M.D. REFERRING PHYSICIAN: Eder Wiggins M.D. REASON FOR CONSULTATION: Possible gastroenteritis. HISTORY OF PRESENTING ILLNESS: This is a 59-year-old lady with history of neuropathy, who comes in with nausea, vomiting as well as abdominal pain as well as chills. She thinks she may have had some food poisoning and feels dehydrated. She was found to be hypotensive and an Infectious Diseases consultation has been obtained for antibiotics. She was also found to have acute renal failure. PAST MEDICAL HISTORY: 1. History of neuropathy. 2. History of hysterectomy. SOCIAL HISTORY: She is a smoker. She drinks alcohol socially. No history of drug use. FAMILY HISTORY: Positive for breast cancer in her mother. REVIEW OF SYSTEMS: RESPIRATORY: No fever. She has chills. No cough. No shortness of breath. No chest pain. CARDIAC: No chest pain. No palpitations. No dizziness. No syncope. GASTROINTESTINAL: She has nausea. She has vomiting. She has abdominal pain, which is diffuse. She also has diarrhea. MEDICATIONS: As an inpatient, she is on subcutaneous heparin, Zosyn, famotidine, Zofran, morphine, and potassium. ALLERGIES: She is allergic to aspirin. PHYSICAL EXAMINATION: VITAL SIGNS: Temperature of 96.6, T-max of 99, pulse of 77, respiratory rate of 14, blood pressure 95/47, and O2 saturation of 97%. HEENT: Pupils equally reactive to light and accommodation. Mouth appears clean without thrush. NECK: Supple. No adenopathy. No JVD. CARDIOVASCULAR: Regular rate and rhythm. No murmurs. LUNGS: Clear to auscultation bilaterally. No crackles. No wheezes. ABDOMEN: Soft. Diffuse tenderness noted. No organomegaly. EXTREMITIES: No cyanosis, no clubbing, no edema. LABORATORY AND DIAGNOSTIC DATA: White count of 21 yesterday, white count of 18.4 today. Hemoglobin 13.8, hematocrit 43.1, MCV 96, platelet count of 305, neutrophils of 78%. Sodium 139, potassium 3.6, chloride 105, bicarb 22, BUN 30, creatinine 4.1, glucose 125, calcium 8.7. Total bilirubin 0.7. AST 16, ALT less than 6, and alkaline phosphatase 56. Total protein 7.7. Albumin 3.7. Lipase of 114. Chest x-ray showing no acute findings. CT abdomen and pelvis showing enteritis, ileus suspected. ASSESSMENT: This is a 59-year-old lady with history of neuropathy, who comes in with chills, nausea, vomiting, abdominal pain, and diarrhea and would suspect. 1. Gastroenteritis as a possibility. She was found to have enteritis on the CT. 2. She also has acute renal failure is improving. PLAN: 1. Continue Zosyn. 2. We will order stool for ova and parasites. 3. We will order stool cultures. 4. We will order stool for rotavirus. 5. We will follow up cultures and adjust antibiotics accordingly. I would like to thank, Dr. Wiggins, for this consultation. Kwadwo Platt M.D. DR: DAVIN JOB#: [id number] CC: Eder Wiggins M.D.
[2019-03-31] MEDS: Docusate 100mg cap ORAL SCH (17:31)
--- NOTE | 2019-03-31 17:31 | NUR ---
NURSE NOTES: PATIENT SEEN HAVING SNACKS. TOLERABLE ABDL CRAMPING. STILL ON ROOM AIR. WILL CONTINUE TO MONITOR.
--- NOTE | 2019-03-31 18:38 | NUR ---
NURSE NOTES: PATIENT KEPT CLEAN AND DRY. NO SIGNS OF CARDIO OR RESPI DISTRESS OF THE MOMENT. WILL CONTINUE TO MONITOR.
--- NOTE | 2019-03-31 18:44 | NUR ---
NURSE NOTES: DR MENSAH MADE AWARE OF H/H AND THAT PT IS FOR PROCEDURE TOMORROW. ORDERED TO GIVE 1 "U" OF PRBC NOW. WILL CONTINUE TO MONITOR. Addendum: 03/31/19 at 1846 by GIULIANA URIAS RN NURSE NOTES: WRONG ENTRY. WRONG PATIENT.
--- NOTE | 2019-03-31 19:23 | NUR ---
HAND-OFF: Report given to Raheem White RN.
--- NOTE | 2019-03-31 19:28 | NUR ---
NURSE NOTES: PRN Morphine IV given for abdominal pain. Will continue to monitor.
--- NOTE | 2019-03-31 19:30 | NUR ---
NURSE NOTES:Received pt with c/o abdominal pain, Nausea and vomiting x3 days, awake alert oriented x3 SOUZA x4, SR on the monitor bp stable, afebrile. Ivf infusing well per RT forearm at 150ml/hr. site atraumatic. Boyer to gravity with minimal to moderate amt of elizabeth yellow urine. Tolerating PO fluids at this time. Monitor Iand O. monitor lytes. Pt c/o of abdominal cramping pain scale of 7-8. Will continue to monitor.No Nausea nor vomiting noted at this time.
--- NOTE | 2019-03-31 20:00 | NUR ---
NURSE NOTES:Morphine 2mg ivp given by RN Cindy for abdominal pain scale 7-8. No diarrhea noted at this time.
[2019-03-31] MEDS: Heparin 5000 units/ml inj SUBQ SCH (20:33)
--- NOTE | 2019-03-31 22:00 | NUR ---
NURSE NOTES:SB on the monitor bp stable afebrile. Dozing on and off.
--- NOTE | 2019-03-31 22:15 | Consultation ---
DATE OF CONSULTATION: 03/30/2019 GASTROENTEROLOGY CONSULTATION CONSULTING PHYSICIAN: Moni Webster M.D. REFERRING PHYSICIAN: Eder Wiggins M.D. CHIEF COMPLAINT: I was asked to see this patient by Dr. Eder Wiggins for evaluation of abdominal issues and diarrhea. HISTORY OF PRESENT ILLNESS: The patient is a pleasant 59-year-old woman, who was in her usual state of health until about 4 days prior to admission when she noticed having repeated bouts of nausea, vomiting, and diarrhea. She has had no recent trips and no contacts with the same symptoms. She has no pets and she did not see any coffee-ground emesis or blood in the stool. She has had the same food with her family members throughout this time. She came to the emergency room at the [facility] where she was found to be in renal failure and had significant amount of leukocytosis and was therefore admitted to intensive care unit. Her nausea and vomiting is better now, but her diarrhea still persists. Stool has not been collected yet. She has not had a colonoscopy for about 10 years. She denies any abdominal pain. PAST MEDICAL HISTORY: Otherwise unremarkable. She has had some injuries which have caused chronic pain. PAST SURGICAL HISTORY: Status post hysterectomy. FAMILY HISTORY: Positive for breast cancer in mother. SOCIAL HISTORY: The patient drinks occasionally. She is engaged. She does not smoke. REVIEW OF SYSTEMS: Otherwise negative. PHYSICAL EXAMINATION: GENERAL: Pleasant woman, seen in the ICU. HEENT: Normocephalic and atraumatic. Sclerae anicteric. Oropharynx clear. NECK: Supple. CHEST: Clear to auscultation. CARDIOVASCULAR: Revealed regular rate. ABDOMEN: Soft, nontender. EXTREMITIES: Revealed no edema. LABORATORY DATA: Noted. ASSESSMENT: This patient presents with an acute form of gastroenteritis with nausea, vomiting, and diarrhea. The state of the patient was apparently severe enough to cause acute kidney injury and therefore, she will need aggressive hydration and volume support. I will check her stools for Salmonella, Shigella, and Campylobacter. At this point, her vomiting has resolved and her diarrhea had slowed down, and she feels better and therefore, she will be managed conservatively. Antibiotics accordingly will be started and will perhaps need to be tailored if an organism is detected on cultures of the stool. RECOMMENDATIONS: 1. IV fluids. 2. Follow laboratory parameters and exam. 3. Check complete stool cultures and Clostridium difficile. 4. Monitor vomiting and diarrhea. Thank you for asking me to participate in the care of this patient. Moni Webster M.D. DR: Dany JOB#: [id number] CC: MANJIT
[2019-04-01] VITALS (23 sets, daily range): BP systolic 95–157; BP diastolic 43–95
--- NOTE | 2019-04-01 | NUR ---
NURSE NOTES:Repositioned for comfort. SB 59/min bp stable, NO CP nor sob noted.
[2019-04-01] MEDS: Morphine Sulfate 2mg/ml Inj(IV/IM USE ONLY) IVP PRN ×4 (01:28→22:26)
--- NOTE | 2019-04-01 01:28 | NUR ---
NURSE NOTES:Morphine 2mg ivp given for cramping abdominal pain scale 7-8.
[2019-04-01] MEDS: Piperacillin/Tazobactam 3.375 GM in NS 110 ML IVPB SCH ×2 (01:33→12:27)
--- NOTE | 2019-04-01 02:30 | NUR ---
NURSE NOTES:Noted pts oro urine output were increasing, monitor I and O. Monitor lytes.
--- NOTE | 2019-04-01 04:17 | NUR ---
NURSE NOTES:Morphine 2mg ivp given by RN Cindy for abdominal pain , pt described it as cramping pain scale of 8.
[2019-04-01] MEDS: D5NS 1,000 ML IV SCH ×3 (04:22→17:50)
[2019-04-01 06:04] LABS: BASOPHILS % (AUTO) 3.2 % (0.0-2.0); EOSINOPHILS % (AUTO) 1.7 % (0.0-3.0); HEMATOCRIT 44.4 % (37.0-47.0); HEMOGLOBIN 13.8 G/DL (12.0-16.0); LYMPHOCYTES % (AUTO) 24.1 % (20.0-45.0); MEAN CORPUSCULAR VOLUME 99 FL (80-99); MONOCYTES % (AUTO) 6.9 % (1.0-10.0); NEUTROPHILS % (AUTO) 64.1 % (45.0-75.0); PLATELET COUNT 307 K/UL (150-450); RED BLOOD COUNT 4.47 M/UL (4.20-5.40); RED CELL DISTRIBUTION WIDTH 15.5 % (11.6-14.8); WHITE BLOOD COUNT 17.6 K/UL (4.8-10.8)
[2019-04-01 06:38] LABS: ALANINE AMINOTRANSFERASE 9 U/L (12-78); ALBUMIN 4.8 G/DL (3.4-5.0); ALKALINE PHOSPHATASE 66 U/L (46-116); ANION GAP 17 mmol/L (5-15); ASPARTATE AMINO TRANSFERASE 18 U/L (15-37); BILIRUBIN,TOTAL 0.5 MG/DL (0.2-1.0); BLOOD UREA NITROGEN 27 mg/dL (7-18); CALCIUM 10.2 MG/DL (8.5-10.1); CARBON DIOXIDE 22 MMOL/L (21-32); CHLORIDE 101 MMOL/L (98-107); CREATININE 4.3 MG/DL (0.55-1.30); PHOSPHORUS 4.8 MG/DL (2.5-4.9); POTASSIUM 3.6 MMOL/L (3.5-5.1); SODIUM 140 MMOL/L (136-145)
--- NOTE | 2019-04-01 07:18 | NUR ---
HAND-OFF: Report given to CARRIE KUNZ.
--- NOTE | 2019-04-01 07:19 | NUR ---
NURSE NOTES: RECEIVED PATIENT FROM Raheem RADFORD RN. PATIENT IS SEEN LYING IN BED, AWAKE, AND RESPONSIVE. 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 ON ROOM AIR. NO SIGNS OF CARDIO OR DISTRESS OF THE MOMENT. C/O ABDOMINAL PAIN AND CRAMPING. NOTED IRBY CONNECTED TO BAG, PATENT. IV'S ON R AC G20 AND L FA G20, WITH IVF RUNNING AT D5 NS AT 150ML/HR. CALL LIGHT WITHIN REACH. BED AT LOWEST POSITION. SIDE RAILS UP. WILL CONTINUE TO MONITOR.
--- NOTE | 2019-04-01 07:43 | NUR ---
NURSE NOTES: PAIN DUE MEDS WAS GIVEN. NOTED PATIENT SLEEPING ON SEMI FOWLERS POSITION. WILL CONTINUE TO MONITOR.
[2019-04-01 08:13] LABS: CREATINE KINASE 71 U/L (26-308); GAMMA GLUTAMYL TRANSPEPTIDASE 21 U/L (5-85)
[2019-04-01] MEDS ORDERED: Hydrocortisone 100mg Inj IV SCH (08:45)
--- NOTE | 2019-04-01 08:48 | Nephrology Progress Note ---
Assessment/Plan Problem List: (1) Acute kidney injury (2) Leukocytosis (3) Hypotension (4) Chronic pain Assessment Acute renal failure: Etiology?? Acute kidney injury WAS TAKING LOTS OF NSAIDs Oliguria Hypotension Leukocytosis, sepsis , Enteritis Plan CALLI Kidney noted Urine studies hydrate One dose Zaroxylin antibiotics monitor renal parameters Avoid nephrotoxics trial Hydrocortisone 48 hours start Fish oil and Neurontin per orders Subjective ROS Limited/Unobtainable: No Constitutional: Reports: malaise, weakness Objective Objective Last 24 Hour Vital Signs Date Time Temp Pulse Resp B/P (MAP) Pulse Ox O2 Delivery O2 Flow Rate FiO2 04/01/19 07:00 58 14 101/63 (76) 97 04/01/19 06:00 64 15 106/50 (68) 97 04/01/19 04:55 98.2 04/01/19 04:00 98.1 62 15 112/63 (79) 97 04/01/19 04:00 Room Air Room Air 04/01/19 04:00 60 04/01/19 03:00 61 15 111/63 (79) 97 04/01/19 02:00 60 15 100/46 (64) 97 04/01/19 01:00 63 14 96/46 (63) 97 04/01/19 00:00 Room Air Room Air 04/01/19 00:00 98.4 70 17 99/45 (63) 96 04/01/19 00:00 65 03/31/19 23:00 66 15 109/51 (70) 96 03/31/19 22:00 67 16 100/46 (64) 98 03/31/19 21:00 77 16 97/39 (58) 99 03/31/19 20:00 98.3 65 17 111/48 (69) 96 03/31/19 20:00 Room Air Room Air 03/31/19 20:00 71 03/31/19 19:00 61 17 107/81 (90) 97 03/31/19 18:00 70 17 102/49 (66) 99 03/31/19 17:00 65 14 99/50 (66) 97 03/31/19 16:00 Room Air Room Air 03/31/19 16:00 78 03/31/19 16:00 98.0 68 12 94/60 (71) 98 03/31/19 15:00 70 15 99/50 (66) 93 03/31/19 14:00 72 14 96/56 (69) 97 03/31/19 13:00 72 15 104/54 (71) 98 03/31/19 12:09 76 03/31/19 12:00 Room Air Room Air 03/31/19 12:00 98.3 73 12 100/51 (67) 97 03/31/19 11:00 72 13 98/62 (74) 97 03/31/19 10:00 72 15 95/56 (69) 96 03/31/19 09:00 77 14 95/47 (63) 97 Intake and Output 03/31/19 04/01/19 19:00 07:00 Intake Total 2967.0 ml 2060 ml Output Total 155 ml 680 ml Balance 2812.0 ml 1380 ml Intake Oral 950 ml 260 ml IV Total 2017.0 ml 1800 ml Output Urine Total 155 ml 680 ml Laboratory Tests 03/31/19 12:42: Urine Color Yellow, Urine Appearance Slightly cloudy, Urine pH 5, Urine Specific [place] 1.025, Urine Protein 3+H, Urine Glucose (UA) Negative, Urine Ketones 1+H, Urine Blood 4+H, Urine Nitrite PositiveH, Urine Bilirubin 1+H, Urine Ictotest Negative, Urine Urobilinogen 1H, Urine Leukocyte Esterase 2+H, Urine RBC 5-10H, Urine WBC 10-15H, Urine Squamous Epithelial Cells Few, Urine Bacteria Few 04/01/19 05:30: White Blood Count 17.6H, Red Blood Count 4.47, Hemoglobin 13.8, Hematocrit 44.4 , Mean Corpuscular Volume 99, Mean Corpuscular Hemoglobin 30.8, Mean Corpuscular Hemoglobin Concent 31.1L, Red Cell Distribution Width 15.5H, Platelet Count 307, Mean Platelet Volume 6.0L, Neutrophils (%) (Auto) 64.1, Lymphocytes (%) (Auto) 24.1, Monocytes (%) (Auto) 6.9, Eosinophils (%) (Auto) 1.7, Basophils (%) (Auto) 3.2H, Sodium Level 140, Potassium Level 3.6, Chloride Level 101, Carbon Dioxide Level 22, Anion Gap 17H, Blood Urea Nitrogen 27H, Creatinine 4.3H, Estimat Glomerular Filtration Rate 12.8, Glucose Level 120H, Uric Acid 8.2H, Calcium Level 10.2H, Phosphorus Level 4.8, Magnesium Level 2.3, Total Bilirubin 0.5, Gamma Glutamyl Transpeptidase 21, Aspartate Amino Transf ( AST/SGOT) 18, Alanine Aminotransferase (ALT/SGPT) 9L, Alkaline Phosphatase 66, Total Creatine Kinase 71, C-Reactive Protein, Quantitative 0.6, Pro-B-Type Natriuretic Peptide 113, Total Protein 9.5H, Total Protein (PEP) [Pending], Albumin 4.8, Albumin (PEP) [Pending], Globulin 4.7, Globulin (PEP) [Pending], Albumin/Globulin Ratio [Pending], [id number] [Pending], Alpha-2- Globulins [Pending], Beta Globulins [Pending], Beta Gamma Globulin [Pending], PEP Abnormal Protein Bands [Pending], Protein Electrophoresis Interpret [Pending ], Cortisol AM Sample [Pending] Height (Feet): 5 Height (Inches): 6.00 Weight (Pounds): 197 General Appearance: no apparent distress, lethargic Cardiovascular: bradycardia Respiratory/Chest: decreased breath sounds Abdomen: soft Objective no change Sherman Martinez MD Apr 01, 2019 08:48
[2019-04-01] MEDS: Docusate 100mg cap ORAL SCH ×3 (09:00→17:50)
[2019-04-01] MEDS: Pantoprazole Inj IVP SCH ×2 (09:09→20:39)
[2019-04-01] MEDS: Heparin 5000 units/ml inj SUBQ SCH ×2 (09:12→20:40)
--- NOTE | 2019-04-01 09:30 | NUR ---
NURSE NOTES: SEEN AND EXAMINED BY DR HUNTLEY WITH NEW ORDERS. NOTED LOOSE BM. URINE AND STOOL SPECIMEN SENT TO LAB. STILL ON ROOM AIR. WILL CONTINUE TO MONITOR.
--- NOTE | 2019-04-01 10:14 | NUR ---
*-* INSURANCE *-* UPDATED CLINICALS FAXED TO: DIOGENES BARKER: REE P- [phone] [id number] F- [phone]..........REVIEW/CLINICAL
--- NOTE | 2019-04-01 11:08 | Infectious Diseases Prog Note ---
Assessment/Plan Assessment/Plan antibiotics : zosyn A 1. gastroenteritis 2. leucocytosis improving 3. renal failure P 1. continue zosyn 2. will follow up cultures Subjective Constitutional: Denies: fever, chills Respiratory: Denies: shortness of breath, dry cough Gastrointestinal/Abdominal: Reports: diarrhea; Denies: nausea, vomiting Musculoskeletal: Reports: pain - in abdomen Allergies: Coded Allergies: ASPIRIN (Unverified Adverse Reaction, Mild, GETS NAUSEATED., 02/28/16) PT STATES SHE GETS NAUSEATED. Objective Vital Signs Last 24 Hour Vital Signs Date Time Temp Pulse Resp B/P (MAP) Pulse Ox O2 Delivery O2 Flow Rate FiO2 04/01/19 10:00 56 13 99 04/01/19 09:00 98/52 (67) 95 04/01/19 08:00 Room Air Room Air 04/01/19 08:00 97.8 61 12 95/43 (60) 98 04/01/19 07:00 58 14 101/63 (76) 97 04/01/19 06:00 64 15 106/50 (68) 97 04/01/19 04:55 98.2 04/01/19 04:00 98.1 62 15 112/63 (79) 97 04/01/19 04:00 Room Air Room Air 04/01/19 04:00 60 04/01/19 03:00 61 15 111/63 (79) 97 04/01/19 02:00 60 15 100/46 (64) 97 04/01/19 01:00 63 14 96/46 (63) 97 04/01/19 00:00 Room Air Room Air 04/01/19 00:00 98.4 70 17 99/45 (63) 96 04/01/19 00:00 65 03/31/19 23:00 66 15 109/51 (70) 96 03/31/19 22:00 67 16 100/46 (64) 98 03/31/19 21:00 77 16 97/39 (58) 99 03/31/19 20:00 98.3 65 17 111/48 (69) 96 03/31/19 20:00 Room Air Room Air 03/31/19 20:00 71 03/31/19 19:00 61 17 107/81 (90) 97 03/31/19 18:00 70 17 102/49 (66) 99 03/31/19 17:00 65 14 99/50 (66) 97 03/31/19 16:00 Room Air Room Air 03/31/19 16:00 78 03/31/19 16:00 98.0 68 12 94/60 (71) 98 03/31/19 15:00 70 15 99/50 (66) 93 03/31/19 14:00 72 14 96/56 (69) 97 03/31/19 13:00 72 15 104/54 (71) 98 03/31/19 12:09 76 03/31/19 12:00 Room Air Room Air 03/31/19 12:00 98.3 73 12 100/51 (67) 97 Height (Feet): 5 Height (Inches): 6.00 Weight (Pounds): 197 Microbiology Date/Time Source Procedure Growth Status 03/30/19 23:10 Blood Blood Culture - Preliminary NO GROWTH AFTER 24 HOURS Resulted 03/30/19 22:50 Blood Blood Culture - Preliminary NO GROWTH AFTER 24 HOURS Resulted 03/31/19 12:42 Urine,Clean Catch Urine Culture - Preliminary NO GROWTH Resulted 03/31/19 02:00 Rectum Received Laboratory Tests Test 03/31/19 12:42 04/01/19 05:30 04/01/19 08:38 04/01/19 09:30 Urine Color Yellow Urine Appearance Slightly cloudy Urine pH 5 (4.5-8.0) Urine Specific [place] 1.025 (1.005-1.035) Urine Protein 3+ (NEGATIVE) H Urine Glucose (UA) Negative (NEGATIVE) Urine Ketones 1+ (NEGATIVE) H Urine Blood 4+ (NEGATIVE) H Urine Nitrite Positive (NEGATIVE) H Urine Bilirubin 1+ (NEGATIVE) H Urine Ictotest Negative (NEGATIVE) Urine Urobilinogen 1 MG/DL (0.0-1.0) H Urine Leukocyte Esterase 2+ (NEGATIVE) H Urine RBC 5-10 /HPF (0 - 2) H Urine WBC 10-15 /HPF (0 - 2) H Urine Squamous Epithelial Cells Few /LPF (NONE/OCC) Urine Bacteria Few /HPF (NONE) White Blood Count 17.6 K/UL (4.8-10.8) H Red Blood Count 4.47 M/UL (4.20-5.40) Hemoglobin 13.8 G/DL (12.0-16.0) Hematocrit 44.4 % (37.0-47.0) Mean Corpuscular Volume 99 FL (80-99) Mean Corpuscular Hemoglobin 30.8 PG (27.0-31.0) Mean Corpuscular Hemoglobin Concent 31.1 G/DL (32.0-36.0) L Red Cell Distribution Width 15.5 % (11.6-14.8) H Platelet Count 307 K/UL (150-450) Mean Platelet Volume 6.0 FL (6.5-10.1) L Neutrophils (%) (Auto) 64.1 % (45.0-75.0) Lymphocytes (%) (Auto) 24.1 % (20.0-45.0) Monocytes (%) (Auto) 6.9 % (1.0-10.0) Eosinophils (%) (Auto) 1.7 % (0.0-3.0) Basophils (%) (Auto) 3.2 % (0.0-2.0) H Sodium Level 140 MMOL/L (136-145) Potassium Level 3.6 MMOL/L (3.5-5.1) Chloride Level 101 MMOL/L (98-107) Carbon Dioxide Level 22 MMOL/L (21-32) Anion Gap 17 mmol/L (5-15) H Blood Urea Nitrogen 27 mg/dL (7-18) H Creatinine 4.3 MG/DL (0.55-1.30) H Estimat Glomerular Filtration Rate 12.8 mL/min (>60) Glucose Level 120 MG/DL (74-106) H Uric Acid 8.2 MG/DL (2.6-7.2) H Calcium Level 10.2 MG/DL (8.5-10.1) H Phosphorus Level 4.8 MG/DL (2.5-4.9) Magnesium Level 2.3 MG/DL (1.8-2.4) Total Bilirubin 0.5 MG/DL (0.2-1.0) Gamma Glutamyl Transpeptidase 21 U/L (5-85) Aspartate Amino Transf (AST/SGOT) 18 U/L (15-37) Alanine Aminotransferase (ALT/SGPT) 9 U/L (12-78) L Alkaline Phosphatase 66 U/L (46-116) Total Creatine Kinase 71 U/L (26-308) C-Reactive Protein, Quantitative 0.6 mg/dL (0.00-0.90) Pro-B-Type Natriuretic Peptide 113 pg/mL (0-125) Total Protein 9.5 G/DL (6.4-8.2) H Total Protein (PEP) Pending Albumin 4.8 G/DL (3.4-5.0) Albumin (PEP) Pending Globulin 4.7 g/dL Globulin (PEP) Pending Albumin/Globulin Ratio Pending [id number] Pending [id number] Pending Beta Globulins Pending Beta Gamma Globulin Pending PEP Abnormal Protein Bands Pending Protein Electrophoresis Interpret Pending Cortisol AM Sample Pending Urine Opiates Screen Positive (NEGATIVE) H Pending Urine Barbiturates Screen Negative (NEGATIVE) Pending Phencyclidine (PCP) Screen Negative (NEGATIVE) Pending Urine Amphetamines Screen Negative (NEGATIVE) Pending Urine Benzodiazepines Screen Negative (NEGATIVE) Pending Urine Cocaine Screen Positive (NEGATIVE) H Pending Urine Marijuana (THC) Screen Negative (NEGATIVE) Pending Urine Eosinophils None seen (NONE SEEN) Stool Occult Blood Pending Current Medications Medications (Trade) Dose Ordered Sig/Dhruv Route PRN Reason Start Time Stop Time Status Last Admin Dose Admin Dextrose/Sodium Chloride 1,000 ml @ 150 mls/hr Q6H40M IV 03/31/19 15:00 04/30/19 14:59 04/01/19 04:22 Docusate Sodium (Colace) 100 mg THREE TIMES A DAY ORAL 03/31/19 18:00 04/30/19 17:59 Fish Oil (Fish Oil) 1,000 mg BID ORAL 04/01/19 10:00 05/01/19 09:59 04/01/19 09:31 Gabapentin (Neurontin) 200 mg BEDTIME ORAL 04/01/19 21:00 05/01/19 20:59 Gabapentin (Neurontin) 200 mg THREE TIMES A DAY ORAL 04/01/19 09:30 05/01/19 09:29 04/01/19 09:31 Heparin Sodium (Porcine) (Heparin 5000 units/ml) 5,000 units EVERY 12 HOURS SUBQ 03/31/19 21:00 04/30/19 20:59 04/01/19 09:12 Hydrocortisone (Solu-CORTEF) 100 mg EVERY 8 HOURS IV 04/01/19 14:00 05/01/19 13:59 Midodrine (Pro-Amatine) 5 mg THREE TIMES A DAY ORAL 04/01/19 09:00 04/30/19 14:59 04/01/19 09:09 Morphine Sulfate (Morphine Sulfate) 2 mg Q4H PRN IVP For Pain 03/31/19 03:45 04/07/19 03:44 04/01/19 04:21 Ondansetron HCl (Zofran) 4 mg Q4H PRN IVP Nausea & Vomiting 03/31/19 10:00 04/30/19 09:59 04/01/19 07:35 Pantoprazole (Protonix) 40 mg Q12HR IVP 04/01/19 09:00 04/30/19 14:59 04/01/19 09:09 Piperacillin Sod/ Tazobactam Sod 3.375 gm/Sodium Chloride 110 ml @ 27.5 mls/hr Q12H IVPB 03/31/19 13:00 04/07/19 12:59 04/01/19 01:33 Kwadwo Platt MD Apr 01, 2019 11:08
--- NOTE | 2019-04-01 11:18 | NUR ---
NURSE NOTES: CALLED AND LEFT A MESSAGE TO DR [facility] RE URINE RESULT. SPOKE WITH BRIAN. AWAITING FOR CALL BACK. WILL CONTINUE TO MONITOR.
--- NOTE | 2019-04-01 12:47 | NUR ---
NURSE NOTES: INFORMED DR SANCHEZ RE POSITIVE FOR OBS. AWAITING FOR CALL BACK. WILL CONTINUE TO MONITOR.
[2019-04-01] MEDS: Hydrocortisone 100mg Inj IV SCH ×2 (13:54→22:29)
--- NOTE | 2019-04-01 14:19 | NUR ---
CASE MANAGEMENT:REVIEW 59 YR OLD FEMALE PRESENTED TO ER CC ABDOMINAL PAIN,N/V AND HEADACHE SI: DEHYDRATION. ACUTE RENAL FAILURE 97.5 100 16 72/55 96% ON RA WBC+21.1 BUN+27 CR+4.3 IS: 1L NS BOLUS X3 IV ZOSYN IV ZOFRAN IV MORPHINE CT ABD/PELVIS CXR BLOOD CX : TO ICU IS: MIDODRINE PO TID IV ALBUMIN IV PROTONIX INTERQUAL CRITERIA MET 04/01/19 SI: ACUTE RENAL FAILURE 98.3 56 13 98/52 99% ON RA BUN+27 CR+4.3 IS: IV SOLU-CORTEF Q8HR IVF@150/HR IV ZOSYN Q12 NEURONTIN PO QHS MIDODRINE PO TID IV PROTONIX Q12 HEPARIN SQ Q12 : ICU STATUS DCP: FROM HOME
--- NOTE | 2019-04-01 14:39 | NUR ---
NURSE NOTES: PATIENT SEEN LYING IN BED, ASLEEP ON SEMI RENE'S POSITION. NO SIGNS OF DISTRESS. WILL CONTINUE TO MONITOR.
--- NOTE | 2019-04-01 16:52 | NUR ---
NURSE NOTES: PATIENT SEEN ASLEEP ON SEMI FOWLERS POSITION. VSS. NO ACUTE DISTRESS. WILL CONTINUE TO MONITOR.
--- NOTE | 2019-04-01 17:53 | NUR ---
NURSE NOTES: PATIENT SEEN HAVING HER DINNER BUT VERBALIZED SHE HAS LOW APPETITE. STILL ON ROOM AIR. NO SIGNS OF DISTRESS. VSS. WILL CONTINUE TO MONITOR.
--- NOTE | 2019-04-01 18:20 | NUR ---
NURSE NOTES: C/O OF ABDOMINAL CRAMPING DUE MED WAS GIVEN. WILL CONTINUE TO MONITOR.
--- NOTE | 2019-04-01 19:16 | NUR ---
HAND-OFF: Report given to Raheem White RN.
--- NOTE | 2019-04-01 19:30 | NUR ---
NURSE NOTES: Recvd.asleep easily awaken.Resp.unlabored.Sat-96-98% on 3L/NC inh.Lungs Diminished BS at Bases.Enc.deeep Breathing/coughing ex.Denies Abdl.Pain at pres.Bowel sounds active.P.O. intake satisfactory.IV Thera.in progress.F/Cath intact diuresis well.See V/S.Scope SR-SB asymptomatic.
--- NOTE | 2019-04-01 19:56 | General Progress Note ---
Assessment/Plan Assessment/Plan: Assessment - acute N/V/D - resolving - Acute renal failure - Leukocytosis - CT e/o enteritis - Heme (+) stools - Cocaine (+) screen Recommendations - advance po diet - Pepcid - Zofran PRN - Check stools for culture and C diff - pending - IV hydration - abx - follow labs - outpatient EGD/Colon Subjective Allergies: Coded Allergies: ASPIRIN (Unverified Adverse Reaction, Mild, GETS NAUSEATED., 02/28/16) PT STATES SHE GETS NAUSEATED. Subjective Feels better no further vomiting since admit BM still diarrhea, but only once today diet advanced to solids stools sent to lab, results pending Objective Last 24 Hour Vital Signs Date Time Temp Pulse Resp B/P (MAP) Pulse Ox O2 Delivery O2 Flow Rate FiO2 04/01/19 19:00 59 16 157/70 (99) 97 04/01/19 18:00 59 13 133/68 (89) 98 04/01/19 17:00 61 16 117/67 (84) 98 04/01/19 16:00 Room Air Room Air 04/01/19 16:00 61 04/01/19 16:00 97.9 60 15 111/95 (100) 98 04/01/19 15:00 63 16 119/51 (73) 99 04/01/19 14:00 69 17 108/55 (72) 99 04/01/19 13:00 68 13 129/47 (74) 96 04/01/19 12:00 98.3 57 13 130/67 (88) 99 04/01/19 12:00 59 04/01/19 12:00 Room Air Room Air 04/01/19 11:00 55 13 115/64 (81) 99 04/01/19 11:00 55 13 115/64 (81) 98 04/01/19 11:00 59 136/67 (90) 99 04/01/19 10:00 56 13 99 04/01/19 10:00 56 15 98/52 (67) 98 04/01/19 09:00 98/52 (67) 95 04/01/19 08:00 Room Air Room Air 04/01/19 08:00 97.8 61 12 95/43 (60) 98 04/01/19 08:00 64 04/01/19 07:00 58 14 101/63 (76) 97 04/01/19 06:00 64 15 106/50 (68) 97 04/01/19 04:55 98.2 04/01/19 04:00 98.1 62 15 112/63 (79) 97 04/01/19 04:00 Room Air Room Air 04/01/19 04:00 60 04/01/19 03:00 61 15 111/63 (79) 97 04/01/19 02:00 60 15 100/46 (64) 97 04/01/19 01:00 63 14 96/46 (63) 97 04/01/19 00:00 Room Air Room Air 04/01/19 00:00 98.4 70 17 99/45 (63) 96 04/01/19 00:00 65 03/31/19 23:00 66 15 109/51 (70) 96 03/31/19 22:00 67 16 100/46 (64) 98 03/31/19 21:00 77 16 97/39 (58) 99 03/31/19 20:00 98.3 65 17 111/48 (69) 96 03/31/19 20:00 Room Air Room Air 03/31/19 20:00 71 Intake and Output 03/31/19 04/01/19 19:00 07:00 Intake Total 2967.0 ml 2060 ml Output Total 155 ml 680 ml Balance 2812.0 ml 1380 ml Intake Oral 950 ml 260 ml IV Total 2017.0 ml 1800 ml Output Urine Total 155 ml 680 ml Laboratory Tests 04/01/19 05:30: White Blood Count 17.6H, Red Blood Count 4.47, Hemoglobin 13.8, Hematocrit 44.4 , Mean Corpuscular Volume 99, Mean Corpuscular Hemoglobin 30.8, Mean Corpuscular Hemoglobin Concent 31.1L, Red Cell Distribution Width 15.5H, Platelet Count 307, Mean Platelet Volume 6.0L, Neutrophils (%) (Auto) 64.1, Lymphocytes (%) (Auto) 24.1, Monocytes (%) (Auto) 6.9, Eosinophils (%) (Auto) 1.7, Basophils (%) (Auto) 3.2H, Sodium Level 140, Potassium Level 3.6, Chloride Level 101, Carbon Dioxide Level 22, Anion Gap 17H, Blood Urea Nitrogen 27H, Creatinine 4.3H, Estimat Glomerular Filtration Rate 12.8, Glucose Level 120H, Uric Acid 8.2H, Calcium Level 10.2H, Phosphorus Level 4.8, Magnesium Level 2.3, Total Bilirubin 0.5, Gamma Glutamyl Transpeptidase 21, Aspartate Amino Transf ( AST/SGOT) 18, Alanine Aminotransferase (ALT/SGPT) 9L, Alkaline Phosphatase 66, Total Creatine Kinase 71, C-Reactive Protein, Quantitative 0.6, Pro-B-Type Natriuretic Peptide 113, Total Protein 9.5H, Total Protein (PEP) [Pending], Albumin 4.8, Albumin (PEP) [Pending], Globulin 4.7, Globulin (PEP) [Pending], Albumin/Globulin Ratio [Pending], Tiswe-7-Wxisbdhsy [Pending], Alpha-2- Globulins [Pending], Beta Globulins [Pending], Beta Gamma Globulin [Pending], PEP Abnormal Protein Bands [Pending], Protein Electrophoresis Interpret [Pending ], Cortisol AM Sample 22.8 04/01/19 08:38: Urine Opiates Screen PositiveH, Urine Barbiturates Screen Negative, Phencyclidine (PCP) Screen Negative, Urine Amphetamines Screen Negative, Urine Benzodiazepines Screen Negative, Urine Cocaine Screen PositiveH, Urine Marijuana (THC) Screen Negative 04/01/19 09:30: Urine Opiates Screen [Pending], Urine Barbiturates Screen [Pending], Phencyclidine (PCP) Screen [Pending], Urine Amphetamines Screen [Pending], Urine Benzodiazepines Screen [Pending], Urine Cocaine Screen [Pending], Urine Marijuana (THC) Screen [Pending], Urine Eosinophils None seen, Stool Occult Blood Positive Height (Feet): 5 Height (Inches): 6.00 Weight (Pounds): 197 Objective WDWN NCAT supple CTA RRR abd soft ND NT no edema Moni Webster MD Apr 01, 2019 19:56
--- NOTE | 2019-04-01 22:30 | NUR ---
NURSE NOTES: HS care prov.Pos.self to comfort.Due med recvd.C/O abd'l pain and discomfort.Medicated.
[2019-04-02] VITALS (15 sets, daily range): BP systolic 116–157; BP diastolic 55–80
[2019-04-02] MEDS: Piperacillin/Tazobactam 3.375 GM in NS 110 ML IVPB SCH ×2 (00:27→13:31)
[2019-04-02] MEDS: D5NS 1,000 ML IV SCH ×4 (00:27→17:49)
--- NOTE | 2019-04-02 00:30 | NUR ---
NURSE NOTES: Sound asleep.Resp.unlabored.See V/s.Scope rhythm same.No Distress.Cont.IV Thera.
--- NOTE | 2019-04-02 02:20 | NUR ---
NURSE NOTES: Repositioned self to comfort.Status same.Cont.Plan of care.
--- NOTE | 2019-04-02 02:30 | Progress Note ---
DATE: 04/01/2019 CARDIOLOGY AND INTERNAL MEDICINE PROGRESS NOTE SUBJECTIVE: The patient's condition remains critical. She is in the intensive care unit. She recalls now that she took a lot of nonsteroidal drugs prior to her admission. Continues on IV fluid hydration. Blood pressure parameters have improved slightly. She was started on steroids by court commissioner today and continues on empiric antibiotics. She has less diarrhea and abdominal pain and she has not had any vomiting. OBJECTIVE: VITAL SIGNS: Blood pressure 133/68, pulse 59, and respirations 13. LUNGS: Clear. CARDIAC: Regular. Normal S1, S2. ABDOMEN: Soft. Mild diffuse tenderness. No guarding or rebound. EXTREMITIES: No edema. LABORATORY DATA: White count down to 17.6 and hemoglobin 13.8. Sodium 140, potassium 3.6, bicarbonate 22, BUN 27, and creatinine 4.3. Uric acid 8.2. Cholesterol 212. IMPRESSION: 1. Gastroenteritis. 2. Sepsis. 3. Leukocytosis. 4. Acute on chronic renal failure. 5. Recovering shock. 6. Chronic pain due to prior trauma. PLAN: 1. Hydration. 2. Steroid trial. 3. Antimicrobials. 4. DVT prophylaxis. 5. Replace electrolytes as needed. 6. Follow up stool studies. Eder Wiggins M.D. DR: KELLY JOB#: [id number] CC:
[2019-04-02] MEDS: Morphine Sulfate 2mg/ml Inj(IV/IM USE ONLY) IVP PRN ×4 (04:55→21:50)
[2019-04-02 04:57] LABS: HEMATOCRIT 36.8 % (37.0-47.0); HEMOGLOBIN 11.8 G/DL (12.0-16.0); MEAN CORPUSCULAR VOLUME 95 FL (80-99); PLATELET COUNT 221 K/UL (150-450); RED BLOOD COUNT 3.86 M/UL (4.20-5.40); RED CELL DISTRIBUTION WIDTH 14.8 % (11.6-14.8); WHITE BLOOD COUNT 10.3 K/UL (4.8-10.8)
--- NOTE | 2019-04-02 05:00 | NUR ---
NURSE NOTES: Medicated for abd'l pain and discomfort.See V/S.Scope rhythm same.No CP.No Resp.Distress.Diuresis well.Blood Drawn for cbc/cmp etc spec.to Lab.
[2019-04-02] MEDS: Hydrocortisone 100mg Inj IV SCH (05:29)
[2019-04-02 06:12] LABS: ALANINE AMINOTRANSFERASE 7 U/L (12-78); ALBUMIN 3.3 G/DL (3.4-5.0); ALKALINE PHOSPHATASE 45 U/L (46-116); ANION GAP 11 mmol/L (5-15); ASPARTATE AMINO TRANSFERASE 13 U/L (15-37); BILIRUBIN,TOTAL 0.3 MG/DL (0.2-1.0); BLOOD UREA NITROGEN 9 mg/dL (7-18); CALCIUM 8.7 MG/DL (8.5-10.1); CARBON DIOXIDE 23 MMOL/L (21-32); CHLORIDE 109 MMOL/L (98-107); CREATININE 1.1 MG/DL (0.55-1.30); PHOSPHORUS 2.1 MG/DL (2.5-4.9); POTASSIUM 3.5 MMOL/L (3.5-5.1); SODIUM 142 MMOL/L (136-145)
--- NOTE | 2019-04-02 07:32 | NUR ---
HAND-OFF: Report given to CYRIL GRANADOS RN.
--- NOTE | 2019-04-02 07:33 | NUR ---
NURSE NOTES: RECEIVED PATIENT FROM Raheem RADFORD RN. PATIENT IS SEEN LYING IN BED, ASLEEP, AROUSABLE AND RESPONSIVE. 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 ON ROOM AIR. NO SIGNS OF CARDIO OR DISTRESS OF THE MOMENT. STILL C/O ABDOMINAL CRAMPING. NOTED IRBY CONNECTED TO BAG, PATENT. IV R FA G20, WITH IVF RUNNING AT D5 NS AT 150ML/HR. CALL LIGHT WITHIN REACH. BED AT LOWEST POSITION. SIDE RAILS UP. WILL CONTINUE TO MONITOR.
--- NOTE | 2019-04-02 08:45 | NUR ---
NURSE NOTES: SEEN AND EXAMINED BY DR GORDON WITH NEW ORDERS MADE. PATIENT C/O ABDOMINAL CRAMPING. NOTED LOOSE BM. WILL CONTINUE TO MONITOR
[2019-04-02] MEDS: Heparin 5000 units/ml inj SUBQ SCH ×2 (09:00→20:20)
[2019-04-02] MEDS: Docusate 100mg cap ORAL SCH ×3 (09:00→17:18)
[2019-04-02 09:04] LABS: HEMATOCRIT 36.2 % (37.0-47.0); HEMOGLOBIN 11.7 G/DL (12.0-16.0); MEAN CORPUSCULAR VOLUME 94 FL (80-99); PLATELET COUNT 221 K/UL (150-450); RED BLOOD COUNT 3.85 M/UL (4.20-5.40); RED CELL DISTRIBUTION WIDTH 14.6 % (11.6-14.8); WHITE BLOOD COUNT 10.9 K/UL (4.8-10.8)
[2019-04-02] MEDS: Pantoprazole Inj IVP SCH (09:09)
[2019-04-02 09:10] LABS: ANION GAP 10 mmol/L (5-15); BLOOD UREA NITROGEN 7 mg/dL (7-18); CALCIUM 8.7 MG/DL (8.5-10.1); CARBON DIOXIDE 25 MMOL/L (21-32); CHLORIDE 106 MMOL/L (98-107); POTASSIUM 3.3 MMOL/L (3.5-5.1); SODIUM 141 MMOL/L (136-145)
[2019-04-02 09:14] LABS: ALANINE AMINOTRANSFERASE 10 U/L (12-78); ALBUMIN 3.6 G/DL (3.4-5.0); ALBUMIN/GLOBULIN RATIO 1.1 (1.0-2.7); ALKALINE PHOSPHATASE 52 U/L (46-116); ASPARTATE AMINO TRANSFERASE 12 U/L (15-37); BILIRUBIN,TOTAL 0.3 MG/DL (0.2-1.0); PHOSPHORUS 1.6 MG/DL (2.5-4.9)
--- NOTE | 2019-04-02 09:33 | Nephrology Progress Note ---
Assessment/Plan Problem List: (1) Acute kidney injury Assessment: resolved (2) Leukocytosis (3) Hypotension (4) Chronic pain (5) Cocaine abuse Assessment Acute renal failure: Etiology?? Acute kidney injury WAS TAKING LOTS OF NSAIDs Oliguria Hypotension Leukocytosis, sepsis , Enteritis Cocaine in urine Plan CALLI Kidney noted Urine studies noted lower rate of hydrate antibiotics monitor renal parameters Avoid nephrotoxics stop Hydrocortisone start Fish oil and Neurontin per orders Subjective ROS Limited/Unobtainable: No Constitutional: Reports: malaise Objective Objective Last 24 Hour Vital Signs Date Time Temp Pulse Resp B/P (MAP) Pulse Ox O2 Delivery O2 Flow Rate FiO2 04/02/19 09:00 63 12 122/63 (82) 99 04/02/19 08:00 98.4 04/02/19 08:00 63 04/02/19 08:00 63 15 126/80 (95) 99 04/02/19 07:00 61 22 128/73 (91) 97 04/02/19 06:00 61 22 132/55 (80) 97 04/02/19 05:25 98.3 04/02/19 05:00 59 13 157/69 (98) 97 04/02/19 04:00 Room Air Room Air 04/02/19 04:00 98.7 53 14 133/63 (86) 94 04/02/19 04:00 53 04/02/19 03:00 53 14 145/61 (89) 95 04/02/19 02:00 54 14 132/62 (85) 94 04/02/19 01:00 54 14 134/67 (89) 94 04/02/19 00:00 59 13 131/62 (85) 94 04/02/19 00:00 59 04/02/19 00:00 Room Air Room Air 04/01/19 23:00 98.3 69 18 127/53 (77) 98 04/01/19 22:00 63 17 136/76 (96) 98 04/01/19 21:00 65 16 130/83 (99) 97 04/01/19 20:00 61 04/01/19 20:00 98.3 61 14 155/75 (101) 97 04/01/19 20:00 Room Air Room Air 04/01/19 19:00 59 16 157/70 (99) 97 7/25/19 18:00 59 13 133/68 (89) 98 04/01/19 17:00 61 16 117/67 (84) 98 04/01/19 16:00 Room Air Room Air 04/01/19 16:00 61 04/01/19 16:00 97.9 60 15 111/95 (100) 98 04/01/19 15:00 63 16 119/51 (73) 99 04/01/19 14:00 69 17 108/55 (72) 99 04/01/19 13:00 68 13 129/47 (74) 96 04/01/19 12:00 98.3 57 13 130/67 (88) 99 04/01/19 12:00 59 04/01/19 12:00 Room Air Room Air 04/01/19 11:00 55 13 115/64 (81) 99 04/01/19 11:00 55 13 115/64 (81) 98 04/01/19 11:00 59 136/67 (90) 99 04/01/19 10:00 56 13 99 04/01/19 10:00 56 15 98/52 (67) 98 Intake and Output 04/01/19 04/02/19 18:59 06:59 Intake Total 2529.02 ml 2410.0 ml Output Total 2581 ml 1830 ml Balance -51.98 ml 580.0 ml Intake Oral 650 ml 620 ml IV Total 1879.02 ml 1790.0 ml Output Urine Total 2580 ml 1830 ml Stool Total 1 ml # Bowel Movements 3 Laboratory Tests 04/02/19 04:20: White Blood Count 10.3, Red Blood Count 3.86L, Hemoglobin 11.8L, Hematocrit 36.8L, Mean Corpuscular Volume 95, Mean Corpuscular Hemoglobin 30.7, Mean Corpuscular Hemoglobin Concent 32.2, Red Cell Distribution Width 14.8, Platelet Count 221, Mean Platelet Volume 7.4, Neutrophils (%) (Auto) , Lymphocytes (%) ( Auto) , Monocytes (%) (Auto) , Eosinophils (%) (Auto) , Basophils (%) (Auto) , Sodium Level 142, Potassium Level 3.5, Chloride Level 109H, Carbon Dioxide Level 23, Anion Gap 11, Blood Urea Nitrogen 9, Creatinine 1.1#, Estimat Glomerular Filtration Rate > 60, Glucose Level 170H, Uric Acid 4.2, Calcium Level 8.7, Phosphorus Level 2.1L, Magnesium Level 1.7L, Total Bilirubin 0.3, Aspartate Amino Transf (AST/SGOT) 13L, Alanine Aminotransferase (ALT/SGPT) 7L, Alkaline Phosphatase 45L, C-Reactive Protein, Quantitative < 0.4, Pro-B-Type Natriuretic Peptide 450H, Total Protein 6.5#, Albumin 3.3L, Globulin 3.2, Albumin/Globulin Ratio 1.0 04/02/19 05:00: Urine Eosinophils None seen 04/02/19 08:35: White Blood Count 10.9H, Red Blood Count 3.85L, Hemoglobin 11.7L, Hematocrit 36.2L, Mean Corpuscular Volume 94, Mean Corpuscular Hemoglobin 30.5, Mean Corpuscular Hemoglobin Concent 32.4, Red Cell Distribution Width 14.6, Platelet Count 221, Mean Platelet Volume 6.8, Neutrophils (%) (Auto) , Lymphocytes (%) ( Auto) , Monocytes (%) (Auto) , Eosinophils (%) (Auto) , Basophils (%) (Auto) , Sodium Level 141, Potassium Level 3.3L, Chloride Level 106, Carbon Dioxide Level 25, Anion Gap 10, Blood Urea Nitrogen 7, Creatinine 1.0, Estimat Glomerular Filtration Rate > 60, Glucose Level 195H, Calcium Level 8.7, Phosphorus Level 1.6L, Magnesium Level 1.7L, Total Bilirubin 0.3, Aspartate Amino Transf (AST/SGOT) 12L, Alanine Aminotransferase (ALT/SGPT) 10L, Alkaline Phosphatase 52, C-Reactive Protein, Quantitative < 0.4, Pro-B-Type Natriuretic Peptide 441H, Total Protein 7.0, Albumin 3.6, Globulin 3.4, Albumin/Globulin Ratio 1.1, Differential Total Cells Counted 100, Neutrophils % (Manual) 90H, Lymphocytes % (Manual) 8L, Monocytes % (Manual) 0L, Eosinophils % (Manual) 1, Basophils % (Manual) 0, Band Neutrophils 1, Platelet Estimate Adequate, Platelet Morphology Normal, Anisocytosis 1+ Height (Feet): 5 Height (Inches): 6.00 Weight (Pounds): 198 General Appearance: no apparent distress Cardiovascular: normal rate Respiratory/Chest: lungs clear Abdomen: soft Objective no change Sherman Martinez MD Apr 02, 2019 09:33
[2019-04-02] MEDS ORDERED: Potassium Phosphate 30 MM in Sodium Chloride 550 ML IV ONE ×4 (10:30)
--- NOTE | 2019-04-02 10:36 | Infectious Diseases Prog Note ---
Assessment/Plan Assessment/Plan antibiotics : zosyn A 1. gastroenteritis improving 2. leucocytosis resolved 3. renal failure improving P 1. continue zosyn 2. will follow up cultures Subjective Constitutional: Denies: fever, chills Respiratory: Denies: shortness of breath, dry cough Gastrointestinal/Abdominal: Reports: diarrhea - decreased; Denies: nausea, vomiting Musculoskeletal: Reports: pain - in abdomen Allergies: Coded Allergies: ASPIRIN (Unverified Adverse Reaction, Mild, GETS NAUSEATED., 02/28/16) PT STATES SHE GETS NAUSEATED. Objective Vital Signs Last 24 Hour Vital Signs Date Time Temp Pulse Resp B/P (MAP) Pulse Ox O2 Delivery O2 Flow Rate FiO2 04/02/19 10:00 59 20 122/63 (82) 100 04/02/19 09:00 63 12 122/63 (82) 99 04/02/19 08:00 Room Air Room Air 04/02/19 08:00 98.4 04/02/19 08:00 63 04/02/19 08:00 63 15 126/80 (95) 99 04/02/19 07:00 61 22 128/73 (91) 97 04/02/19 06:00 61 22 132/55 (80) 97 04/02/19 05:25 98.3 04/02/19 05:00 59 13 157/69 (98) 97 04/02/19 04:00 Room Air Room Air 04/02/19 04:00 98.7 53 14 133/63 (86) 94 04/02/19 04:00 53 04/02/19 03:00 53 14 145/61 (89) 95 04/02/19 02:00 54 14 132/62 (85) 94 04/02/19 01:00 54 14 134/67 (89) 94 04/02/19 00:00 59 13 131/62 (85) 94 04/02/19 00:00 59 04/02/19 00:00 Room Air Room Air 04/01/19 23:00 98.3 69 18 127/53 (77) 98 04/01/19 22:00 63 17 136/76 (96) 98 04/01/19 21:00 65 16 130/83 (99) 97 04/01/19 20:00 61 04/01/19 20:00 98.3 61 14 155/75 (101) 97 04/01/19 20:00 Room Air Room Air 04/01/19 19:00 59 16 157/70 (99) 97 04/01/19 18:00 59 13 133/68 (89) 98 04/01/19 17:00 61 16 117/67 (84) 98 04/01/19 16:00 Room Air Room Air 04/01/19 16:00 61 04/01/19 16:00 97.9 60 15 111/95 (100) 98 04/01/19 15:00 63 16 119/51 (73) 99 04/01/19 14:00 69 17 108/55 (72) 99 04/01/19 13:00 68 13 129/47 (74) 96 04/01/19 12:00 98.3 57 13 130/67 (88) 99 04/01/19 12:00 59 04/01/19 12:00 Room Air Room Air 04/01/19 11:00 55 13 115/64 (81) 99 04/01/19 11:00 55 13 115/64 (81) 98 04/01/19 11:00 59 136/67 (90) 99 Height (Feet): 5 Height (Inches): 6.00 Weight (Pounds): 198 Microbiology Date/Time Source Procedure Growth Status 03/30/19 23:10 Blood Blood Culture - Preliminary NO GROWTH AFTER 48 HOURS Resulted 03/30/19 22:50 Blood Blood Culture - Preliminary NO GROWTH AFTER 48 HOURS Resulted 03/31/19 09:30 Stool Clostridium difficile Toxin Assay - Final Complete 04/01/19 09:30 Indwelling Cath Urine Culture - Preliminary NO GROWTH Resulted 03/31/19 12:42 Urine,Clean Catch Urine Culture - Preliminary NO GROWTH AFTER 24 HOURS Resulted 03/31/19 02:00 Rectum - Final NO CARBAPENEM-RESISTANT ENTEROBACTERI... Complete 03/31/19 02:00 Rectum VRE Culture - Final NO VANCOMYCIN RESISTANT ENTEROCOCCUS ... Complete Laboratory Tests Test 04/02/19 04:20 04/02/19 05:00 04/02/19 08:35 White Blood Count 10.3 K/UL (4.8-10.8) 10.9 K/UL (4.8-10.8) H Red Blood Count 3.86 M/UL (4.20-5.40) L 3.85 M/UL (4.20-5.40) L Hemoglobin 11.8 G/DL (12.0-16.0) L 11.7 G/DL (12.0-16.0) L Hematocrit 36.8 % (37.0-47.0) L 36.2 % (37.0-47.0) L Mean Corpuscular Volume 95 FL (80-99) 94 FL (80-99) Mean Corpuscular Hemoglobin 30.7 PG (27.0-31.0) 30.5 PG (27.0-31.0) Mean Corpuscular Hemoglobin Concent 32.2 G/DL (32.0-36.0) 32.4 G/DL (32.0-36.0) Red Cell Distribution Width 14.8 % (11.6-14.8) 14.6 % (11.6-14.8) Platelet Count 221 K/UL (150-450) 221 K/UL (150-450) Mean Platelet Volume 7.4 FL (6.5-10.1) 6.8 FL (6.5-10.1) Neutrophils (%) (Auto) % (45.0-75.0) % (45.0-75.0) Lymphocytes (%) (Auto) % (20.0-45.0) % (20.0-45.0) Monocytes (%) (Auto) % (1.0-10.0) % (1.0-10.0) Eosinophils (%) (Auto) % (0.0-3.0) % (0.0-3.0) Basophils (%) (Auto) % (0.0-2.0) % (0.0-2.0) Sodium Level 142 MMOL/L (136-145) 141 MMOL/L (136-145) Potassium Level 3.5 MMOL/L (3.5-5.1) 3.3 MMOL/L (3.5-5.1) L Chloride Level 109 MMOL/L (98-107) H 106 MMOL/L (98-107) Carbon Dioxide Level 23 MMOL/L (21-32) 25 MMOL/L (21-32) Anion Gap 11 mmol/L (5-15) 10 mmol/L (5-15) Blood Urea Nitrogen 9 mg/dL (7-18) 7 mg/dL (7-18) Creatinine 1.1 MG/DL (0.55-1.30) # 1.0 MG/DL (0.55-1.30) Estimat Glomerular Filtration Rate > 60 mL/min (>60) > 60 mL/min (>60) Glucose Level 170 MG/DL (74-106) H 195 MG/DL (74-106) H Uric Acid 4.2 MG/DL (2.6-7.2) Calcium Level 8.7 MG/DL (8.5-10.1) 8.7 MG/DL (8.5-10.1) Phosphorus Level 2.1 MG/DL (2.5-4.9) L 1.6 MG/DL (2.5-4.9) L Magnesium Level 1.7 MG/DL (1.8-2.4) L 1.7 MG/DL (1.8-2.4) L Total Bilirubin 0.3 MG/DL (0.2-1.0) 0.3 MG/DL (0.2-1.0) Aspartate Amino Transf (AST/SGOT) 13 U/L (15-37) L 12 U/L (15-37) L Alanine Aminotransferase (ALT/SGPT) 7 U/L (12-78) L 10 U/L (12-78) L Alkaline Phosphatase 45 U/L (46-116) L 52 U/L (46-116) C-Reactive Protein, Quantitative < 0.4 mg/dL (0.00-0.90) < 0.4 mg/dL (0.00-0.90) Pro-B-Type Natriuretic Peptide 450 pg/mL (0-125) H 441 pg/mL (0-125) H Total Protein 6.5 G/DL (6.4-8.2) # 7.0 G/DL (6.4-8.2) Albumin 3.3 G/DL (3.4-5.0) L 3.6 G/DL (3.4-5.0) Globulin 3.2 g/dL 3.4 g/dL Albumin/Globulin Ratio 1.0 (1.0-2.7) 1.1 (1.0-2.7) Urine Eosinophils None seen (NONE SEEN) Differential Total Cells Counted 100 Neutrophils % (Manual) 90 % (45-75) H Lymphocytes % (Manual) 8 % (20-45) L Monocytes % (Manual) 0 % (1-10) L Eosinophils % (Manual) 1 % (0-3) Basophils % (Manual) 0 % (0-2) Band Neutrophils 1 % (0-8) Platelet Estimate Adequate Platelet Morphology Normal Anisocytosis 1+ Current Medications Medications (Trade) Dose Ordered Sig/Dhruv Route PRN Reason Start Time Stop Time Status Last Admin Dose Admin Dextrose/Sodium Chloride 1,000 ml @ 50 mls/hr Q20H IV 04/02/19 15:00 04/30/19 14:59 UNV Docusate Sodium (Colace) 100 mg THREE TIMES A DAY ORAL 04/02/19 13:00 04/30/19 17:59 UNV Fish Oil (Fish Oil) 1,000 mg BID ORAL 04/02/19 18:00 05/01/19 09:59 UNV Gabapentin (Neurontin) 200 mg BEDTIME ORAL 04/02/19 21:00 05/01/19 20:59 UNV Gabapentin (Neurontin) 200 mg THREE TIMES A DAY ORAL 04/02/19 13:00 05/01/19 09:29 UNV Heparin Sodium (Porcine) (Heparin 5000 units/ml) 5,000 units EVERY 12 HOURS SUBQ 04/02/19 21:00 04/30/19 20:59 UNV Magnesium Sulfate 100 ml @ 100 mls/hr Q1H IVPB 04/02/19 10:45 04/02/19 13:44 UNV Midodrine (Pro-Amatine) 2.5 mg THREE TIMES A DAY ORAL 04/02/19 13:00 04/30/19 14:59 UNV Morphine Sulfate (Morphine Sulfate) 2 mg Q4H PRN IVP For Pain 04/02/19 11:45 04/07/19 03:44 UNV Ondansetron HCl (Zofran) 4 mg Q4H PRN IVP Nausea & Vomiting 04/02/19 14:00 04/30/19 09:59 UNV Pantoprazole (Protonix) 40 mg EVERY 12 HOURS ORAL 04/02/19 21:00 05/02/19 20:59 UNV Piperacillin Sod/ Tazobactam Sod 3.375 gm/Sodium Chloride 110 ml @ 27.5 mls/hr Q12H IVPB 04/02/19 13:00 04/07/19 12:59 UNV Potassium Phosphate 30 mm/ Sodium Chloride 560 ml @ 93.333 mls/ hr ONCE ONCE IV 04/02/19 10:30 04/02/19 16:29 UNV Kwadwo Platt MD Apr 02, 2019 10:36
--- NOTE | 2019-04-02 11:15 | NUR ---
NURSE NOTES: PATIENT RECEIVED FROM ICU VIA BED. AOX4. BEDSIDE REPORT RECEIVED. BELONGINGS ACCOUNTED FOR. QUESTIONS ANSWERED, NEEDS MET AT THIS TIME. DISCUSSED PLAN OF CARE FOR THE DAY. VERBALIZED UNDERSTANDING. PT. ORIENTED TO ROOM. BED IN LOWEST AND LOCKED POSITION. CALL LIGHT WITHIN REACH. WILL CONTINUE TO MONITOR STATUS.
--- NOTE | 2019-04-02 11:15 | NUR ---
TRANSFER TO FLOOR: Patient transferred to [facility], per hospital bed. Report given to Delaney Hernández RN. Belongings stayed with the patient and medications given to NOD. Mother made aware of the transfer. Endorsed accordingly.
--- NOTE | 2019-04-02 11:19 | Cardiology Report ---
APPROVED REPORT EXAM: Two-dimensional and M-mode echocardiogram with Doppler and color Doppler. INDICATION Hypertension M-Mode DIMENSIONS IVSd0.9 (0.7-1.1cm)Left Atrium (MM)2.5 (1.6-4.0cm) LVDd4.5 (3.5-5.6cm)Aortic Root3.1 (2.0-3.7cm) PWd1.0 (0.7-1.1cm)Aortic Cusp Exc.1.6 (1.5-2.0cm) IVSs1.1 cm LVDs2.9 (2.5-4.0cm) PWs1.0 cm Normal left ventricular chamber size, systolic function and wall motion . Left ventricular ejection fraction estimated to be 55-60%. No evidence of left ventricular hypertrophy . No evidence of pericardial effusion. Mild left atrial enlargement. Right cardiac chamber sizes are within normal limits. Aortic valve calcification with normal cusp excursion . Mildly thickened mitral valve leaflets with normal excursion. Mild mitral annulus and aortic root calcification. Pulmonic valve not well visualized. IVC at normal size with physiologic collapse . A color flow and spectral Doppler study was performed and revealed: Trace aortic insufficiency . Mitral diastolic velocities suggest reduced left ventricular relaxation c/w mild LV diastolic dysfunction (Grade I ) Trace mitral regurgitation. Trace to mild tricuspid regurgitation. Tricuspid systolic velocities suggests peak right ventricular systolic pressure of 28mmHg.
[2019-04-02] MEDS ORDERED: NS 275ml ONE (11:27)
[2019-04-02] MEDS ORDERED: Tubing IV Secondary IV ONE (11:27)
[2019-04-02] MEDS ORDERED: D5NS 1000ml IV ONE (11:27)
--- NOTE | 2019-04-02 11:33 | NUR ---
CASE MANAGEMENT:REVIEW 04/02/19 SI: ACUTE RENAL FAILURE LEUKOCYTOSIS. HYPOTENSION 98.4 63 15 126/80 99% ON RA WBC+10.9 H/H-11.7/36.2 K-3.3 PHOS-1.6 MAG-1.7 IS: IV MAG SULFATE Q1HRS X3 IV K-PHOS X1 IVF@50/HR IV ZOSYN Q12 NEURONTIN PO QHS HEPARIN SQ Q12 PROTONIX PO Q12 FISH OIL PO BID MIDODRINE PO TID : MED/SURG STATUS 3 EAST DCP: FROM HOME
--- NOTE | 2019-04-02 13:21 | NUR ---
*-* INSURANCE *-* UPDATED CLINICALS AND REVIEWS FAXED TO: DIOGENES BARKER: REE P- [phone] F- [phone]..........REVIEW/CLINICAL
[2019-04-02] MEDS ORDERED: D5NS 1,000 ML IV SCH (15:00)
--- NOTE | 2019-04-02 18:49 | NUR ---
NURSE NOTES: PATIENT REMAINS STABLE. C/O ABDOMINAL CRAMPING FROM TIME TO TIME. USUALLY AFTER EATING MEALS. MORPHINE GIVEN ORDERED TO ALLEVIATE SYMPTOMS. VSS.AFEBRILE. BED IN LOCKED POSITION. CALL LIGHT WITHIN REACH.
--- NOTE | 2019-04-02 19:31 | NUR ---
HAND-OFF: Report given to CALLUM ZELAYA RN.
--- NOTE | 2019-04-02 19:35 | NUR ---
NURSE NOTES: Received report from CARRIE Duncan and walking rounds made with outgoing nurse. Received pt lying in bed, AOx4, pain level 4/10 to abdominal area, denies nausea, pain medication not yet due, no distress noted. IV R wrist patent and intact. IV fluid infusing as ordered. Boyer to gravity clear urine output. Bed in lowest position and locked, side rails up x 2, call light within reach. Will continue to monitor.
--- NOTE | 2019-04-02 20:26 | General Progress Note ---
Assessment/Plan Assessment/Plan: Assessment - acute N/V/D - resolving - Acute renal failure - resolved - Leukocytosis - CT e/o enteritis - Heme (+) stools - Cocaine (+) screen Recommendations - push po diet - Pepcid - Zofran PRN - Check stools for culture - IV hydration - abx - follow labs - outpatient EGD/Colon Subjective Allergies: Coded Allergies: ASPIRIN (Unverified Adverse Reaction, Mild, GETS NAUSEATED., 02/28/16) PT STATES SHE GETS NAUSEATED. Subjective Feels better no vomiting since admit BM still diarrhea, C diff (-) Objective Last 24 Hour Vital Signs Date Time Temp Pulse Resp B/P (MAP) Pulse Ox O2 Delivery O2 Flow Rate FiO2 04/02/19 20:00 98.7 65 18 130/56 (80) 98 04/02/19 18:19 98.4 04/02/19 16:00 98.4 60 19 138/79 (98) 98 04/02/19 11:46 97.7 55 17 146/79 (101) 97 04/02/19 10:00 59 20 122/63 (82) 100 04/02/19 09:00 63 12 122/63 (82) 99 04/02/19 08:00 Room Air Room Air 04/02/19 08:00 98.4 04/02/19 08:00 63 04/02/19 08:00 63 15 126/80 (95) 99 04/02/19 07:00 61 22 128/73 (91) 97 04/02/19 06:00 61 22 132/55 (80) 97 04/02/19 05:25 98.3 04/02/19 05:00 59 13 157/69 (98) 97 04/02/19 04:00 Room Air Room Air 04/02/19 04:00 98.7 53 14 133/63 (86) 94 04/02/19 04:00 53 04/02/19 03:00 53 14 145/61 (89) 95 04/02/19 02:00 54 14 132/62 (85) 94 04/02/19 01:00 54 14 134/67 (89) 94 04/02/19 00:00 59 13 131/62 (85) 94 04/02/19 00:00 59 04/02/19 00:00 Room Air Room Air 04/01/19 23:00 98.3 69 18 127/53 (77) 98 04/01/19 22:00 63 17 136/76 (96) 98 04/01/19 21:00 65 16 130/83 (99) 97 Intake and Output 04/01/19 04/02/19 19:00 07:00 Intake Total 2409.02 ml 2380.0 ml Output Total 2931 ml 1540 ml Balance -521.98 ml 840.0 ml Intake Oral 650 ml 620 ml IV Total 1759.02 ml 1760.0 ml Output Urine Total 2930 ml 1540 ml Stool Total 1 ml # Bowel Movements 3 Laboratory Tests 04/02/19 04:20: White Blood Count 10.3, Red Blood Count 3.86L, Hemoglobin 11.8L, Hematocrit 36.8L, Mean Corpuscular Volume 95, Mean Corpuscular Hemoglobin 30.7, Mean Corpuscular Hemoglobin Concent 32.2, Red Cell Distribution Width 14.8, Platelet Count 221, Mean Platelet Volume 7.4, Neutrophils (%) (Auto) , Lymphocytes (%) ( Auto) , Monocytes (%) (Auto) , Eosinophils (%) (Auto) , Basophils (%) (Auto) , Sodium Level 142, Potassium Level 3.5, Chloride Level 109H, Carbon Dioxide Level 23, Anion Gap 11, Blood Urea Nitrogen 9, Creatinine 1.1#, Estimat Glomerular Filtration Rate > 60, Glucose Level 170H, Uric Acid 4.2, Calcium Level 8.7, Phosphorus Level 2.1L, Magnesium Level 1.7L, Total Bilirubin 0.3, Aspartate Amino Transf (AST/SGOT) 13L, Alanine Aminotransferase (ALT/SGPT) 7L, Alkaline Phosphatase 45L, C-Reactive Protein, Quantitative < 0.4, Pro-B-Type Natriuretic Peptide 450H, Total Protein 6.5#, Albumin 3.3L, Globulin 3.2, Albumin/Globulin Ratio 1.0 04/02/19 05:00: Urine Eosinophils None seen 04/02/19 08:35: White Blood Count 10.9H, Red Blood Count 3.85L, Hemoglobin 11.7L, Hematocrit 36.2L, Mean Corpuscular Volume 94, Mean Corpuscular Hemoglobin 30.5, Mean Corpuscular Hemoglobin Concent 32.4, Red Cell Distribution Width 14.6, Platelet Count 221, Mean Platelet Volume 6.8, Neutrophils (%) (Auto) , Lymphocytes (%) ( Auto) , Monocytes (%) (Auto) , Eosinophils (%) (Auto) , Basophils (%) (Auto) , Sodium Level 141, Potassium Level 3.3L, Chloride Level 106, Carbon Dioxide Level 25, Anion Gap 10, Blood Urea Nitrogen 7, Creatinine 1.0, Estimat Glomerular Filtration Rate > 60, Glucose Level 195H, Calcium Level 8.7, Phosphorus Level 1.6L, Magnesium Level 1.7L, Total Bilirubin 0.3, Aspartate Amino Transf (AST/SGOT) 12L, Alanine Aminotransferase (ALT/SGPT) 10L, Alkaline Phosphatase 52, C-Reactive Protein, Quantitative < 0.4, Pro-B-Type Natriuretic Peptide 441H, Total Protein 7.0, Albumin 3.6, Globulin 3.4, Albumin/Globulin Ratio 1.1, Differential Total Cells Counted 100, Neutrophils % (Manual) 90H, Lymphocytes % (Manual) 8L, Monocytes % (Manual) 0L, Eosinophils % (Manual) 1, Basophils % (Manual) 0, Band Neutrophils 1, Platelet Estimate Adequate, Platelet Morphology Normal, Anisocytosis 1+ Height (Feet): 5 Height (Inches): 6.00 Weight (Pounds): 198 Objective WDWN NCAT supple CTA RRR abd soft ND NT no edema Moni Webster MD Apr 02, 2019 20:26
[2019-04-03] MEDS: Piperacillin/Tazobactam 3.375 GM in NS 110 ML IVPB SCH (00:29)
[2019-04-03] MEDS: Morphine Sulfate 2mg/ml Inj(IV/IM USE ONLY) IVP PRN ×2 (01:51→06:47)
--- NOTE | 2019-04-03 02:15 | Progress Note ---
DATE: 04/02/2019 CARDIOLOGY PROGRESS NOTE SUBJECTIVE: The patient feels better. More alert. No shortness of breath. OBJECTIVE: VITAL SIGNS: Blood pressure 130/56, pulse 65, respirations 18, afebrile, and room air oxygen saturation is 98%. NECK: Supple. LUNGS: Clear. CARDIAC: Regular rhythm and rate. Normal S1 and S2. ABDOMEN: Soft. EXTREMITIES: No edema. LABORATORY AND IMAGING DATA: His tox screen has positive cocaine. Echocardiogram with normal ejection fraction. IMPRESSION: 1. Cocaine abuse. 2. Acute renal failure, resolved. 3. Diarrhea, nausea, and vomiting due to gastroenteritis, now resolved. 4. Hemoccult-positive stools. 5. Hypertensive heart disease. PLAN: Hydration. Counseled regarding cocaine use and continue antimicrobials. Bowel regimen. Discontinue cardiac monitoring. Eder Wiggins M.D. DR: NICK JOB#: [id number] CC:
[2019-04-03 04:00] VITALS: BP 101/58
--- NOTE | 2019-04-03 07:40 | NUR ---
HAND-OFF: Report given to CARRIE Mathwes. Pt in stable condition.
[2019-04-03 08:00] VITALS: BP 112/58
--- NOTE | 2019-04-03 08:00 | NUR ---
NURSE NOTES: Received report from Yan Quijano pt a/a/o x4 laying in bed with no signs of distress or other issues at this time. 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 IV on the right FA gauge#20 running D5NS@50ml/hr. pt in a regular diet and tolerating well with no n/v. call light within reach, bed in lowest position, side rales up x2. I will f/u as needed.
[2019-04-03] MEDS: Docusate 100mg cap ORAL SCH ×3 (08:14→17:35)
[2019-04-03] MEDS: Heparin 5000 units/ml inj SUBQ SCH ×2 (08:15→20:21)
[2019-04-03] MEDS ORDERED: NS 500ML ONE (09:39)
[2019-04-03] MEDS ORDERED: D5NS 1000ml IV ONE (09:39)
[2019-04-03] MEDS ORDERED: Tubing IV Secondary IV ONE (09:39)
[2019-04-03] MEDS ORDERED: Potassium Phosphate 30 MM in NS 275 ML IV ONE (11:00)
--- NOTE | 2019-04-03 11:12 | Nephrology Progress Note ---
Assessment/Plan Problem List: (1) Acute kidney injury Assessment: resolved (2) Leukocytosis (3) Hypotension (4) Chronic pain (5) Cocaine abuse Assessment Acute renal failure: Etiology?? Acute kidney injury WAS TAKING LOTS OF NSAIDs Oliguria Hypotension Leukocytosis, sepsis , Enteritis Cocaine in urine Plan Dc Zosyn DC MS DC IV fluids DC oro PT eval CALLI Kidney noted Urine studies noted Avoid nephrotoxics start Fish oil and Neurontin per orders Subjective ROS Limited/Unobtainable: No Constitutional: Reports: malaise Objective Objective Last 24 Hour Vital Signs Date Time Temp Pulse Resp B/P (MAP) Pulse Ox O2 Delivery O2 Flow Rate FiO2 04/03/19 09:00 Room Air Room Air 04/03/19 08:00 98.2 60 20 112/58 (76) 99 04/03/19 04:00 98.2 58 17 101/58 (72) 97 04/02/19 23:36 98.2 61 18 116/58 (77) 98 04/02/19 21:00 Room Air Room Air 04/02/19 20:00 98.7 65 18 130/56 (80) 98 04/02/19 18:19 98.4 04/02/19 16:00 98.4 60 19 138/79 (98) 98 04/02/19 11:46 97.7 55 17 146/79 (101) 97 Intake and Output 04/02/19 04/03/19 18:59 06:59 Intake Total 1593.331 ml 660.0 ml Output Total 2310 ml 1200 ml Balance -716.669 ml -540.0 ml Intake Oral 630 ml 100 ml IV Total 963.331 ml 560.0 ml Output Urine Total 2310 ml 1200 ml # Bowel Movements 4 Laboratory Tests 04/03/19 05:30: Urine Eosinophils None seen, Urine Opiates Screen Negative, Urine Barbiturates Screen Negative, Phencyclidine (PCP) Screen Negative, Urine Amphetamines Screen Negative, Urine Benzodiazepines Screen Negative, Urine Cocaine Screen Negative, Urine Marijuana (THC) Screen Negative Height (Feet): 5 Height (Inches): 6.00 Weight (Pounds): 198 General Appearance: no apparent distress Objective no change Sherman Martinez MD Apr 03, 2019 11:12
[2019-04-03] MEDS: Hydromorphone 0.5mg/0.5ml inj IVP PRN ×3 (11:45→20:15)
[2019-04-03 12:00] VITALS: BP 128/96
[2019-04-03] MEDS ORDERED: Zosyn 3.375gm q8h **Extended infusion IVPB SCH ×2 (12:00)
--- NOTE | 2019-04-03 14:27 | NUR ---
CASE MANAGEMENT:REVIEW 04/03/19 SI: ACUTE RENAL FAILURE LEUKOCYTOSIS. HYPOTENSION T 97.4 HR 52 RR 18 B/P 128/96 SATS 99% ON RA NO LABS TODAY IS: IV MAG SULFATE Q1HRS X3 IV K-PHOS X1 IVF@50 mL/HR IV ZOSYN Q12 NEURONTIN PO QHS HEPARIN SQ Q12 PROTONIX PO Q12 FISH OIL PO BID MIDODRINE PO TID : MED/SURG STATUS 3 EAST DCP: FROM HOME
--- NOTE | 2019-04-03 15:06 | NUR ---
PT Note PT art completed, treatment initiated. Patient has muscle weakness with c/o dizziness upon standing, limiting her gait. Patient needs PT to increase her muscle strength and balance to improve her functional mobility and gait to enable her to return to [facility]. Addendum: 04/03/19 at 1506 by ISRAEL [place] PT Amended: Links added.
[2019-04-03 16:00] VITALS: BP 120/76
--- NOTE | 2019-04-03 16:49 | General Progress Note ---
Assessment/Plan Assessment/Plan: Assessment - acute N/V/D - resolving - Acute renal failure - resolved - Leukocytosis - CT e/o enteritis - Heme (+) stools - Cocaine (+) screen Recommendations - push po diet - Pepcid - Zofran PRN - IV hydration - abx - follow labs - advised patient to have outpatient EGD/Colon Subjective Allergies: Coded Allergies: ASPIRIN (Unverified Adverse Reaction, Mild, GETS NAUSEATED., 02/28/16) PT STATES SHE GETS NAUSEATED. Subjective no vomiting since admit BM still diarrhea, C diff (-) , Culture (-) Objective Last 24 Hour Vital Signs Date Time Temp Pulse Resp B/P (MAP) Pulse Ox O2 Delivery O2 Flow Rate FiO2 04/03/19 16:00 98.1 58 20 120/76 (91) 97 04/03/19 12:15 98.2 04/03/19 12:00 97.4 52 18 128/96 (107) 99 04/03/19 09:00 Room Air Room Air 04/03/19 08:00 98.2 60 20 112/58 (76) 99 04/03/19 04:00 98.2 58 17 101/58 (72) 97 04/02/19 23:36 98.2 61 18 116/58 (77) 98 04/02/19 21:00 Room Air Room Air 04/02/19 20:00 98.7 65 18 130/56 (80) 98 04/02/19 18:19 98.4 Intake and Output 04/02/19 04/03/19 19:00 07:00 Intake Total 1643.331 ml 610.0 ml Output Total 2200 ml 1200 ml Balance -556.669 ml -590.0 ml Intake Oral 630 ml 100 ml IV Total 1013.331 ml 510.0 ml Output Urine Total 2200 ml 1200 ml # Bowel Movements 4 Laboratory Tests 04/03/19 05:30: Urine Eosinophils None seen, Urine Opiates Screen Negative, Urine Barbiturates Screen Negative, Phencyclidine (PCP) Screen Negative, Urine Amphetamines Screen Negative, Urine Benzodiazepines Screen Negative, Urine Cocaine Screen Negative, Urine Marijuana (THC) Screen Negative Height (Feet): 5 Height (Inches): 6.00 Weight (Pounds): 198 Objective WDWN NCAT supple CTA RRR abd soft ND NT no edema Khorrami,Payman MD Apr 03, 2019 16:49
--- NOTE | 2019-04-03 19:11 | NUR ---
HAND-OFF: Report given to Yan Quijano pt in stable condition. - during my shift pt was able to ambulate to the restroom x2 with staff assistance and the use of FWW. - pt had BM x2. - IV changed to her right FA gauge #22 at 15:00
--- NOTE | 2019-04-03 19:30 | NUR ---
NURSE NOTES: Received report from CARRIE Mathews and walking rounds made with outgoing nurse. Received pt lying in bed, AOx4, pain level 8/10 to abdominal area, denies nausea or vomiting, pain medication not yet due, pt made aware. IV L FA heplock patent and intact. No distress noted. Bed in lowest position and locked, side rails up x 2, call light within reach. Will continue to monitor.
[2019-04-03 20:00] VITALS: BP 140/78
[2019-04-04] VITALS: BP 109/58
[2019-04-04] MEDS: Hydromorphone 0.5mg/0.5ml inj IVP PRN ×6 (00:39→21:04)
--- NOTE | 2019-04-04 02:45 | Progress Note ---
DATE: 04/03/2019 CARDIOLOGY AND INTERNAL MEDICINE PROGRESS NOTE SUBJECTIVE: The patient has no abdominal pain and nausea. She still has diarrhea with less frequency. She had four episodes today. PHYSICAL EXAMINATION: VITAL SIGNS: Blood pressure 120/76, pulse 58, and respirations 20. Afebrile. LUNGS: Clear. CARDIAC: Regular. Normal S1, S2. ABDOMEN: Soft. No focal tenderness, guarding or rebound. EXTREMITIES: No edema. LABORATORY DATA: Stool culture is negative. Urine culture is negative. C. diff toxin negative. IMPRESSION: 1. Gastroenteritis, resolving. 2. Hemoccult-positive stools. 3. Cocaine positive screen. 4. Recovering leukocytosis and sepsis. 5. Resolved renal failure. PLAN: 1. Outpatient colonoscopy and endoscopy. 2. Empiric antimicrobials. 3. IV fluids. 4. Antidiarrheals. 5. Discharge planning once diarrhea better controlled. Eder Wiggins M.D. DR: OLYA JOB#: [id number] CC:
[2019-04-04 04:46] VITALS: BP 113/53
[2019-04-04 05:02] LABS: BASOPHILS % (AUTO) 0.7 % (0.0-2.0); EOSINOPHILS % (AUTO) 4.5 % (0.0-3.0); HEMATOCRIT 33.4 % (37.0-47.0); HEMOGLOBIN 10.7 G/DL (12.0-16.0); LYMPHOCYTES % (AUTO) 26.5 % (20.0-45.0); MEAN CORPUSCULAR VOLUME 94 FL (80-99); MONOCYTES % (AUTO) 7.5 % (1.0-10.0); NEUTROPHILS % (AUTO) 60.8 % (45.0-75.0); PLATELET COUNT 201 K/UL (150-450); RED BLOOD COUNT 3.54 M/UL (4.20-5.40); RED CELL DISTRIBUTION WIDTH 14.8 % (11.6-14.8); WHITE BLOOD COUNT 7.5 K/UL (4.8-10.8)
[2019-04-04 05:28] LABS: ALANINE AMINOTRANSFERASE 8 U/L (12-78); ALBUMIN 2.9 G/DL (3.4-5.0); ALKALINE PHOSPHATASE 45 U/L (46-116); ANION GAP 3 mmol/L (5-15); ASPARTATE AMINO TRANSFERASE 10 U/L (15-37); BILIRUBIN,TOTAL 0.3 MG/DL (0.2-1.0); BLOOD UREA NITROGEN 7 mg/dL (7-18); CALCIUM 8.4 MG/DL (8.5-10.1); CARBON DIOXIDE 34 MMOL/L (21-32); CHLORIDE 106 MMOL/L (98-107); CREATININE 0.9 MG/DL (0.55-1.30); PHOSPHORUS 3.9 MG/DL (2.5-4.9); POTASSIUM 3.3 MMOL/L (3.5-5.1); SODIUM 143 MMOL/L (136-145)
--- NOTE | 2019-04-04 07:03 | NUR ---
NURSE NOTES: Pt stable over night, medicated for pain as needed. Pt states she had one diarrhea overnight (not witness). Will endorse to next nurse.
--- NOTE | 2019-04-04 07:39 | NUR ---
HAND-OFF: Report given to CARRIE Thakkar. Pt in stable condition.
[2019-04-04 08:00] VITALS: BP_SYST 102; BP_SYST 112; BP_DIAS 36; BP_DIAS 56
--- NOTE | 2019-04-04 08:10 | NUR ---
NURSE NOTES: during shift change patient awake seating on bed and eating breakfast with out no distress, bed on low position locked, call light with in reach will continue to monitor.
[2019-04-04] MEDS: Docusate 100mg cap ORAL SCH ×4 (08:56→17:05)
[2019-04-04] MEDS: Heparin 5000 units/ml inj SUBQ SCH ×2 (08:57→20:11)
[2019-04-04 12:00] VITALS: BP 93/63
--- NOTE | 2019-04-04 12:47 | Infectious Diseases Prog Note ---
Assessment/Plan Assessment/Plan A 1. gastroenteritis improving 2. leucocytosis resolved 3. renal failure improving 4. Anemia 5. Cocaine & opioid abuse P 1. continue Zosyn 2. will follow up cultures Subjective ROS Limited/Unobtainable: No Constitutional: Reports: no symptoms Respiratory: Reports: no symptoms Cardiovascular: Reports: no symptoms Gastrointestinal/Abdominal: Reports: diarrhea, other - crampy abdominal pain; Denies: nausea, vomiting Genitourinary: Reports: no symptoms Allergies: Coded Allergies: ASPIRIN (Unverified Adverse Reaction, Mild, GETS NAUSEATED., 02/28/16) PT STATES SHE GETS NAUSEATED. Objective Vital Signs Last 24 Hour Vital Signs Date Time Temp Pulse Resp B/P (MAP) Pulse Ox O2 Delivery O2 Flow Rate FiO2 04/04/19 09:25 97.9 04/04/19 09:00 Room Air Room Air 04/04/19 08:00 97.9 63 18 112/36 (61) 98 04/04/19 04:46 97.9 59 16 113/53 (73) 95 04/04/19 00:00 97.5 60 17 109/58 (75) 97 04/03/19 21:00 Room Air Room Air 04/03/19 20:00 97.8 64 18 140/78 (98) 97 04/03/19 16:00 98.1 58 20 120/76 (91) 97 Height (Feet): 5 Height (Inches): 6.00 Weight (Pounds): 198 General Appearance: no acute distress HEENT: mucous membranes moist Respiratory/Chest: lungs clear Cardiovascular: normal rate Abdomen: tender Extremities: no edema Neurologic/Psychiatric: alert, oriented x 3, responsive Laboratory Tests Test 04/04/19 04:40 White Blood Count 7.5 K/UL (4.8-10.8) Red Blood Count 3.54 M/UL (4.20-5.40) L Hemoglobin 10.7 G/DL (12.0-16.0) L Hematocrit 33.4 % (37.0-47.0) L Mean Corpuscular Volume 94 FL (80-99) Mean Corpuscular Hemoglobin 30.1 PG (27.0-31.0) Mean Corpuscular Hemoglobin Concent 31.9 G/DL (32.0-36.0) L Red Cell Distribution Width 14.8 % (11.6-14.8) Platelet Count 201 K/UL (150-450) Mean Platelet Volume 6.3 FL (6.5-10.1) L Neutrophils (%) (Auto) 60.8 % (45.0-75.0) Lymphocytes (%) (Auto) 26.5 % (20.0-45.0) Monocytes (%) (Auto) 7.5 % (1.0-10.0) Eosinophils (%) (Auto) 4.5 % (0.0-3.0) H Basophils (%) (Auto) 0.7 % (0.0-2.0) Sodium Level 143 MMOL/L (136-145) Potassium Level 3.3 MMOL/L (3.5-5.1) L Chloride Level 106 MMOL/L (98-107) Carbon Dioxide Level 34 MMOL/L (21-32) H Anion Gap 3 mmol/L (5-15) L Blood Urea Nitrogen 7 mg/dL (7-18) Creatinine 0.9 MG/DL (0.55-1.30) Estimat Glomerular Filtration Rate > 60 mL/min (>60) Glucose Level 108 MG/DL (74-106) H Calcium Level 8.4 MG/DL (8.5-10.1) L Phosphorus Level 3.9 MG/DL (2.5-4.9) Magnesium Level 1.7 MG/DL (1.8-2.4) L Total Bilirubin 0.3 MG/DL (0.2-1.0) Aspartate Amino Transf (AST/SGOT) 10 U/L (15-37) L Alanine Aminotransferase (ALT/SGPT) 8 U/L (12-78) L Alkaline Phosphatase 45 U/L (46-116) L C-Reactive Protein, Quantitative < 0.4 mg/dL (0.00-0.90) Total Protein 5.9 G/DL (6.4-8.2) L Albumin 2.9 G/DL (3.4-5.0) L Globulin 3.0 g/dL Albumin/Globulin Ratio 1.0 (1.0-2.7) Current Medications Medications (Trade) Dose Ordered Sig/Dhruv Route PRN Reason Start Time Stop Time Status Last Admin Dose Admin Docusate Sodium (Colace) 100 mg THREE TIMES A DAY ORAL 04/02/19 13:00 04/30/19 17:59 04/04/19 08:56 Fish Oil (Fish Oil) 1,000 mg BID ORAL 04/02/19 18:00 05/01/19 09:59 04/04/19 08:56 Gabapentin (Neurontin) 300 mg BEDTIME ORAL 04/03/19 21:00 05/01/19 20:59 04/03/19 20:15 Gabapentin (Neurontin) 300 mg THREE TIMES A DAY ORAL 04/03/19 13:00 05/01/19 09:29 04/04/19 08:55 Heparin Sodium (Porcine) (Heparin 5000 units/ml) 5,000 units EVERY 12 HOURS SUBQ 04/02/19 21:00 04/30/19 20:59 04/04/19 08:57 Hydromorphone HCl (Dilaudid) 0.5 mg Q4H PRN IVP For Pain 7 and above 04/03/19 11:15 04/10/19 11:14 04/04/19 08:55 Magnesium Sulfate 100 ml @ 100 mls/hr Q1H IVPB 04/04/19 12:45 04/04/19 14:44 Midodrine (Pro-Amatine) 2.5 mg THREE TIMES A DAY ORAL 04/02/19 13:00 04/30/19 14:59 04/04/19 08:56 Ondansetron HCl (Zofran) 4 mg Q4H PRN IVP Nausea & Vomiting 04/02/19 12:00 04/30/19 11:59 Pantoprazole (Protonix) 40 mg EVERY 12 HOURS ORAL 04/02/19 21:00 05/02/19 20:59 04/04/19 08:56 Potassium Chloride (K-Dur) 40 meq ONCE ORAL 04/04/19 12:45 04/04/19 13:45 Tramadol HCl (Ultram) 50 mg Q6H PRN ORAL pain 3-6 04/03/19 11:15 04/10/19 11:14 Manas Ng MD Apr 04, 2019 12:47
--- NOTE | 2019-04-04 13:28 | NUR ---
NURSE NOTES: a one time potassium 40meq order given at 1307, and noted another 40meq to give at 1315 RN spoke to pharmacist Georges, pharmacist stated it is ordered by Dr. Martinez and order verified with out confirming the duplicate order, also verified even if it is duplicate order pharmacy will verify it is up to MD for duplicate order not pharmacy she said. RN called for MD and verified the order instructed not to administer the duplicate order.
[2019-04-04 13:36] LABS: CHOLESTEROL 188 MG/DL (< 200); HDL CHOLESTEROL 33 MG/DL (40-60); TRIGLYCERIDES 205 MG/DL (30-150)
--- NOTE | 2019-04-04 14:38 | NUR ---
NURSE NOTES: Patient reported pain is not managed on current pain medication RN called and left a message for MD will continue to follow up. had one time diarrhea in my shift witnessed by NORMA Rojas held.
--- NOTE | 2019-04-04 15:02 | Nephrology Progress Note ---
Assessment/Plan Problem List: (1) Acute kidney injury Assessment: resolved (2) Leukocytosis (3) Hypotension (4) Chronic pain (5) Cocaine abuse Assessment Acute renal failure: Etiology?? Acute kidney injury WAS TAKING LOTS OF NSAIDs Oliguria Hypotension Leukocytosis, sepsis , Enteritis Cocaine in urine Plan Dc Zosyn DC MS DC IV fluids DC oro PT eval CALLI Kidney noted Urine studies noted Avoid nephrotoxics start Fish oil and Neurontin per orders Subjective ROS Limited/Unobtainable: No Objective Objective Last 24 Hour Vital Signs Date Time Temp Pulse Resp B/P (MAP) Pulse Ox O2 Delivery O2 Flow Rate FiO2 04/04/19 13:23 97.9 04/04/19 12:00 98.3 58 18 93/63 (73) 98 04/04/19 09:00 Room Air Room Air 04/04/19 08:00 97.9 63 18 112/56 (74) 98 04/04/19 04:46 97.9 59 16 113/53 (73) 95 04/04/19 00:00 97.5 60 17 109/58 (75) 97 04/03/19 21:00 Room Air Room Air 04/03/19 20:00 97.8 64 18 140/78 (98) 97 04/03/19 16:00 98.1 58 20 120/76 (91) 97 Intake and Output 04/03/19 04/04/19 18:59 06:59 Intake Total 350 ml 360 ml Output Total 600 ml 2190 ml Balance -250 ml -1830 ml Intake Oral 300 ml 360 ml IV Total 50 ml Output Urine Total 600 ml 1650 ml Other 540 ml # Voids 2 # Bowel Movements 2 1 Laboratory Tests 04/04/19 04:40: White Blood Count 7.5, Red Blood Count 3.54L, Hemoglobin 10.7L, Hematocrit 33.4L , Mean Corpuscular Volume 94, Mean Corpuscular Hemoglobin 30.1, Mean Corpuscular Hemoglobin Concent 31.9L, Red Cell Distribution Width 14.8, Platelet Count 201, Mean Platelet Volume 6.3L, Neutrophils (%) (Auto) 60.8, Lymphocytes (%) (Auto) 26.5, Monocytes (%) (Auto) 7.5, Eosinophils (%) (Auto) 4.5H, Basophils (%) (Auto) 0.7, Sodium Level 143, Potassium Level 3.3L, Chloride Level 106, Carbon Dioxide Level 34H, Anion Gap 3L, Blood Urea Nitrogen 7, Creatinine 0.9, Estimat Glomerular Filtration Rate > 60, Glucose Level 108H, Calcium Level 8.4L, Phosphorus Level 3.9, Magnesium Level 1.7L, Total Bilirubin 0.3, Aspartate Amino Transf (AST/SGOT) 10L, Alanine Aminotransferase (ALT/SGPT) 8L, Alkaline Phosphatase 45L, C-Reactive Protein, Quantitative < 0.4, Total Protein 5.9L, Albumin 2.9L, Globulin 3.0, Albumin/Globulin Ratio 1.0, Triglycerides Level 205H, Cholesterol Level 188, LDL Cholesterol 116H, HDL Cholesterol 33L, Cholesterol/HDL Ratio 5.7H Height (Feet): 5 Height (Inches): 6.00 Weight (Pounds): 198 General Appearance: no apparent distress Objective no change Sherman Martinez MD Apr 04, 2019 15:02
--- NOTE | 2019-04-04 15:23 | General Progress Note ---
Assessment/Plan Assessment/Plan: Assessment - acute N/V/D - resolved vomiting but still with diarrhea - Acute renal failure - resolved - Leukocytosis - CT e/o enteritis - Heme (+) stools - Cocaine (+) screen Recommendations - push po diet - Pepcid - Zofran PRN - IV hydration - abx - follow labs - advised patient to have outpatient EGD/Colon - If diarrhea persists, will do EGD/colon this week Subjective Allergies: Coded Allergies: ASPIRIN (Unverified Adverse Reaction, Mild, GETS NAUSEATED., 02/28/16) PT STATES SHE GETS NAUSEATED. Subjective no vomiting since admit BM still diarrhea, C diff (-) , Culture (-) Objective Last 24 Hour Vital Signs Date Time Temp Pulse Resp B/P (MAP) Pulse Ox O2 Delivery O2 Flow Rate FiO2 04/04/19 13:23 97.9 04/04/19 12:00 98.3 58 18 93/63 (73) 98 04/04/19 09:00 Room Air Room Air 04/04/19 08:00 97.9 63 18 112/56 (74) 98 04/04/19 04:46 97.9 59 16 113/53 (73) 95 04/04/19 00:00 97.5 60 17 109/58 (75) 97 04/03/19 21:00 Room Air Room Air 04/03/19 20:00 97.8 64 18 140/78 (98) 97 04/03/19 16:00 98.1 58 20 120/76 (91) 97 Intake and Output 04/03/19 04/04/19 18:59 06:59 Intake Total 350 ml 360 ml Output Total 600 ml 2190 ml Balance -250 ml -1830 ml Intake Oral 300 ml 360 ml IV Total 50 ml Output Urine Total 600 ml 1650 ml Other 540 ml # Voids 2 # Bowel Movements 2 1 Laboratory Tests 04/04/19 04:40: White Blood Count 7.5, Red Blood Count 3.54L, Hemoglobin 10.7L, Hematocrit 33.4L , Mean Corpuscular Volume 94, Mean Corpuscular Hemoglobin 30.1, Mean Corpuscular Hemoglobin Concent 31.9L, Red Cell Distribution Width 14.8, Platelet Count 201, Mean Platelet Volume 6.3L, Neutrophils (%) (Auto) 60.8, Lymphocytes (%) (Auto) 26.5, Monocytes (%) (Auto) 7.5, Eosinophils (%) (Auto) 4.5H, Basophils (%) (Auto) 0.7, Sodium Level 143, Potassium Level 3.3L, Chloride Level 106, Carbon Dioxide Level 34H, Anion Gap 3L, Blood Urea Nitrogen 7, Creatinine 0.9, Estimat Glomerular Filtration Rate > 60, Glucose Level 108H, Calcium Level 8.4L, Phosphorus Level 3.9, Magnesium Level 1.7L, Total Bilirubin 0.3, Aspartate Amino Transf (AST/SGOT) 10L, Alanine Aminotransferase (ALT/SGPT) 8L, Alkaline Phosphatase 45L, C-Reactive Protein, Quantitative < 0.4, Total Protein 5.9L, Albumin 2.9L, Globulin 3.0, Albumin/Globulin Ratio 1.0, Triglycerides Level 205H, Cholesterol Level 188, LDL Cholesterol 116H, HDL Cholesterol 33L, Cholesterol/HDL Ratio 5.7H Height (Feet): 5 Height (Inches): 6.00 Weight (Pounds): 198 Objective WDWN NCAT supple CTA RRR abd soft ND NT no edema Moni Webster MD Apr 04, 2019 15:23
[2019-04-04] MEDS: Bismuth Subsalicylate 30ml ORAL SCH ×2 (15:50→19:00)
[2019-04-04 16:00] VITALS: BP 104/79
--- NOTE | 2019-04-04 16:39 | NUR ---
CASE MANAGEMENT:REVIEW 04/04/19 SI: ACUTE RENAL FAILURE LEUKOCYTOSIS. HYPOTENSION T 97.5 HR 60 RR 17 B/P 109/58 SATS 97% ON RA K 3.3 CO2 34 GLU 108 CA 8.4 MG 1.7 AST 10 ALT 8 ALP 45 IS: IV MAG SULFATE Q1HRS X3 IV K-PHOS X1 IVF@50 mL/HR IV ZOSYN Q12 NEURONTIN PO QHS HEPARIN SQ Q12 PROTONIX PO Q12 FISH OIL PO BID MIDODRINE PO TID : MED/SURG STATUS 3 EAST DCP: FROM HOME
--- NOTE | 2019-04-04 18:00 | NUR ---
NURSE NOTES: Patient refused 1800 scheduled po med reporting she is feeling nauseated after patient agreed to take and medication open from package and it is wasted.
--- NOTE | 2019-04-04 19:00 | Progress Note ---
DATE: 04/04/2019 SUBJECTIVE: The patient still has diarrhea several times a day, abdominal cramping. She is relying on Dilaudid. OBJECTIVE: VITAL SIGNS: Blood pressure 93/63, pulse 58, and respirations 18. LUNGS: Clear. CARDIAC: Regular. ABDOMEN: Soft. Mild tenderness diffusely. No rebound. LABORATORY DATA: Notable for potassium of 3.3 and magnesium of 1.7. IMPRESSION: 1. Colitis. 2. Hypokalemia. 3. Hypomagnesemia. 4. Abdominal pain. 5. Ongoing diarrhea. 6. Recovering sepsis. PLAN: 1. Antimicrobials. 2. Replace potassium. 3. Oral magnesium. 4. Intravenously antidiarrheals. 5. Pain control. 6. Maintenance hydration. 7. Midodrine until blood pressure is more stable. Eder Wiggins M.D. DR: OLYA JOB#: [id number] CC:
--- NOTE | 2019-04-04 19:45 | NUR ---
NURSE NOTES: Pt received in bed, complaining not wanting to eat or drink anything at the moment, bed in lowest position, call light within reach, will continue to monitor.
--- NOTE | 2019-04-04 19:49 | NUR ---
HAND-OFF: Report given to CARRIE worley patient stable condition.
[2019-04-04 20:00] VITALS: BP 94/65
[2019-04-05] VITALS: BP 121/64
[2019-04-05] MEDS: Hydromorphone 0.5mg/0.5ml inj IVP PRN ×6 (01:15→21:16)
[2019-04-05 04:00] VITALS: BP 125/72
[2019-04-05] MEDS: traMADol 50mg tab ORAL PRN ×3 (04:04→19:42)
[2019-04-05] MEDS: Bismuth Subsalicylate 30ml ORAL SCH ×5 (07:00→19:00)
--- NOTE | 2019-04-05 07:25 | NUR ---
HAND-OFF: Report given to CARRIE Jaquez.
[2019-04-05 07:36] LABS: BASOPHILS % (AUTO) 0.5 % (0.0-2.0); HEMOGLOBIN 12.7 G/DL (12.0-16.0); LYMPHOCYTES % (AUTO) 13.9 % (20.0-45.0); MEAN CORPUSCULAR VOLUME 94 FL (80-99); MONOCYTES % (AUTO) 5.4 % (1.0-10.0); NEUTROPHILS % (AUTO) 77.2 % (45.0-75.0); PLATELET COUNT 260 K/UL (150-450); RED BLOOD COUNT 4.13 M/UL (4.20-5.40); RED CELL DISTRIBUTION WIDTH 14.5 % (11.6-14.8)
--- NOTE | 2019-04-05 07:39 | NUR ---
NURSE NOTES: Report received from CARRIE Vences. Pt shows no signs of distress, A+Ox3, denies pain/SOB. Respirations are even and unlabored on room air. IV site is patent and intact. Bed is at lowest position, brakes engaged, siderails x2, bed alarm, and call light within reach. Pt is in stable condition at this time; will continue to monitor. Addendum: 04/05/19 at 0742 by UMER JARRELL RN A+Ox4
--- NOTE | 2019-04-05 07:41 | NUR ---
NURSE NOTES: Report received from CARRIE Vences. Pt shows no signs of distress, A+Ox4, denies pain/SOB. Respirations are even and unlabored on room air. IV site is patent and intact. Bed is at lowest position, brakes engaged, siderails x2, bed alarm, and call light within reach. Pt is in stable condition at this time; will continue to monitor.
[2019-04-05 07:55] LABS: ANION GAP 4 mmol/L (5-15); BLOOD UREA NITROGEN 7 mg/dL (7-18); CALCIUM 8.4 MG/DL (8.5-10.1); CARBON DIOXIDE 30 MMOL/L (21-32); CHLORIDE 105 MMOL/L (98-107); CREATININE 0.7 MG/DL (0.55-1.30); POTASSIUM 3.9 MMOL/L (3.5-5.1); SODIUM 139 MMOL/L (136-145)
[2019-04-05] MEDS: Docusate 100mg cap ORAL SCH ×3 (07:57→17:51)
[2019-04-05 08:00] VITALS: BP 85/53
[2019-04-05] MEDS: Heparin 5000 units/ml inj SUBQ SCH ×2 (08:30→21:00)
--- NOTE | 2019-04-05 08:30 | NUR ---
NURSE NOTES: Pt's 0800 BP is 85/53. Pt refusing PO medication at 0800 that included Midodrine to increase Bp. Made patient aware of risks, she refused anyway. Went back at 0830 and asked th patient to take her PO meds and she said yes. All PO medications given except for colace which she refused.
[2019-04-05] MEDS ORDERED: Nulytely 4L ORAL ONE (09:00)
--- NOTE | 2019-04-05 09:13 | NUR ---
NURSE NOTES: Left message with Dr. Martinez regarding Mg of 1.7. He increased her mag-ox.
--- NOTE | 2019-04-05 09:25 | NUR ---
NURSE NOTES: B/P 128/79. Dilaudid given for 10/10 pain.
--- NOTE | 2019-04-05 09:42 | General Progress Note ---
Assessment/Plan Assessment/Plan: Assessment - acute N/V/D - resolved vomiting but still with diarrhea - Acute renal failure - resolved - Leukocytosis - CT e/o enteritis - Heme (+) stools - Cocaine (+) screen Recommendations - clear liquid diet - Pepcid - Zofran PRN - IV hydration - abx - follow labs - EGD/Colon in am if OK from Cards standpoint Subjective Allergies: Coded Allergies: ASPIRIN (Unverified Adverse Reaction, Mild, GETS NAUSEATED., 02/28/16) PT STATES SHE GETS NAUSEATED. Subjective no vomiting since admit BM still diarrhea and abdominal pain unable to eat PO diet C diff (-) , Culture (-) Objective Last 24 Hour Vital Signs Date Time Temp Pulse Resp B/P (MAP) Pulse Ox O2 Delivery O2 Flow Rate FiO2 04/05/19 08:00 97.5 69 18 85/53 (64) 97 04/05/19 04:00 98.4 75 18 125/72 (89) 99 04/05/19 00:00 97.8 84 19 121/64 (83) 97 04/04/19 21:00 Room Air Room Air 04/04/19 20:00 98.4 79 18 94/65 (75) 96 04/04/19 17:34 97.9 04/04/19 16:00 97.5 80 20 104/79 (87) 98 04/04/19 12:00 98.3 58 18 93/63 (73) 98 Intake and Output 04/04/19 04/05/19 19:00 07:00 Intake Total 240 ml 240 ml Balance 240 ml 240 ml Intake Oral 240 ml 240 ml # Voids 2 # Bowel Movements 1 Laboratory Tests 04/05/19 05:33: White Blood Count 12.0#H, Red Blood Count 4.13L, Hemoglobin 12.7, Hematocrit 39.0, Mean Corpuscular Volume 94, Mean Corpuscular Hemoglobin 30.7, Mean Corpuscular Hemoglobin Concent 32.5, Red Cell Distribution Width 14.5, Platelet Count 260, Mean Platelet Volume 6.9, Neutrophils (%) (Auto) 77.2H, Lymphocytes ( %) (Auto) 13.9L, Monocytes (%) (Auto) 5.4, Eosinophils (%) (Auto) 3.0, Basophils (%) (Auto) 0.5, Sodium Level 139, Potassium Level 3.9, Chloride Level 105, Carbon Dioxide Level 30, Anion Gap 4L, Blood Urea Nitrogen 7, Creatinine 0.7, Estimat Glomerular Filtration Rate > 60, Glucose Level 101, Calcium Level 8.4L, Magnesium Level 1.7L Height (Feet): 5 Height (Inches): 6.00 Weight (Pounds): 205 Objective WDWN NCAT supple CTA RRR abd soft ND NT no edema Moni Webster MD Apr 05, 2019 09:42
--- NOTE | 2019-04-05 09:43 | NUR ---
CASE MANAGEMENT:REVIEW 04/05/19 SI: RECOVERING SEPSIS. COLITIS ABDOMINAL PAIN. DIARRHEA 97.5 69 18 85/53 97% ON RA WBC+12.0 IS: MAG OXIDE PO TID PEPTO BISMOL PO 5X'S/DAY K-DUR PO BID NEURONTIN PO TID IV DILAUDID 0.5MG Q4HRS PRN HEPARIN SQ Q12 PROTONIX PO Q12 MIDODRINE PO TID : MED/SURG STATUS 3 EAST DCP: HOME
--- NOTE | 2019-04-05 10:14 | Nephrology Progress Note ---
Assessment/Plan Problem List: (1) Acute kidney injury Assessment: resolved (2) Leukocytosis (3) Hypotension (4) Chronic pain (5) Cocaine abuse Assessment Acute renal failure: Etiology?? Acute kidney injury WAS TAKING LOTS OF NSAIDs Oliguria Hypotension Leukocytosis, sepsis , Enteritis Cocaine in urine Plan Dc Zosyn DC MS DC IV fluids DC oro PT eval CALLI Kidney noted Urine studies noted Avoid nephrotoxics start Fish oil and Neurontin per orders due colonoscopy in am ! Subjective ROS Limited/Unobtainable: No Constitutional: Reports: malaise, other - abd cramp Objective Objective Last 24 Hour Vital Signs Date Time Temp Pulse Resp B/P (MAP) Pulse Ox O2 Delivery O2 Flow Rate FiO2 04/05/19 08:00 97.5 69 18 85/53 (64) 97 04/05/19 04:00 98.4 75 18 125/72 (89) 99 04/05/19 00:00 97.8 84 19 121/64 (83) 97 04/04/19 21:00 Room Air Room Air 04/04/19 20:00 98.4 79 18 94/65 (75) 96 04/04/19 17:34 97.9 04/04/19 16:00 97.5 80 20 104/79 (87) 98 04/04/19 12:00 98.3 58 18 93/63 (73) 98 Intake and Output 04/04/19 04/05/19 19:00 07:00 Intake Total 240 ml 240 ml Balance 240 ml 240 ml Intake Oral 240 ml 240 ml # Voids 2 # Bowel Movements 1 Laboratory Tests 04/05/19 05:33: White Blood Count 12.0#H, Red Blood Count 4.13L, Hemoglobin 12.7, Hematocrit 39.0, Mean Corpuscular Volume 94, Mean Corpuscular Hemoglobin 30.7, Mean Corpuscular Hemoglobin Concent 32.5, Red Cell Distribution Width 14.5, Platelet Count 260, Mean Platelet Volume 6.9, Neutrophils (%) (Auto) 77.2H, Lymphocytes ( %) (Auto) 13.9L, Monocytes (%) (Auto) 5.4, Eosinophils (%) (Auto) 3.0, Basophils (%) (Auto) 0.5, Sodium Level 139, Potassium Level 3.9, Chloride Level 105, Carbon Dioxide Level 30, Anion Gap 4L, Blood Urea Nitrogen 7, Creatinine 0.7, Estimat Glomerular Filtration Rate > 60, Glucose Level 101, Calcium Level 8.4L, Magnesium Level 1.7L Height (Feet): 5 Height (Inches): 6.00 Weight (Pounds): 205 General Appearance: mild distress Cardiovascular: normal rate Respiratory/Chest: lungs clear Abdomen: soft Objective no change Sherman Martinez MD Apr 05, 2019 10:14
[2019-04-05 12:00] VITALS: BP 125/66
[2019-04-05] MEDS: Magnesium Oxide 400mg tab ORAL SCH ×2 (13:03→18:02)
--- NOTE | 2019-04-05 13:30 | Infectious Diseases Prog Note ---
Assessment/Plan Assessment/Plan A 1. gastroenteritis improving 2. leucocytosis resolved 3. renal failure improving 4. Anemia 5. Cocaine & opioid abuse P 1. continue Zosyn 2. will have EGD & colonoscopy Subjective ROS Limited/Unobtainable: No Constitutional: Reports: no symptoms Respiratory: Reports: no symptoms Cardiovascular: Reports: no symptoms Gastrointestinal/Abdominal: Reports: diarrhea, other - crampy abdominal pain Genitourinary: Reports: no symptoms Allergies: Coded Allergies: ASPIRIN (Unverified Adverse Reaction, Mild, GETS NAUSEATED., 02/28/16) PT STATES SHE GETS NAUSEATED. Objective Vital Signs Last 24 Hour Vital Signs Date Time Temp Pulse Resp B/P (MAP) Pulse Ox O2 Delivery O2 Flow Rate FiO2 04/05/19 12:00 98.4 69 20 125/66 (85) 96 04/05/19 09:00 Room Air Room Air 04/05/19 08:00 97.5 69 18 85/53 (64) 97 04/05/19 04:00 98.4 75 18 125/72 (89) 99 04/05/19 00:00 97.8 84 19 121/64 (83) 97 04/04/19 21:00 Room Air Room Air 04/04/19 20:00 98.4 79 18 94/65 (75) 96 04/04/19 17:34 97.9 04/04/19 16:00 97.5 80 20 104/79 (87) 98 Height (Feet): 5 Height (Inches): 6.00 Weight (Pounds): 205 General Appearance: no acute distress HEENT: mucous membranes moist Respiratory/Chest: lungs clear Cardiovascular: normal rate Abdomen: soft, non tender Extremities: no edema Neurologic/Psychiatric: alert, oriented x 3, responsive Laboratory Tests Test 04/05/19 05:33 White Blood Count 12.0 K/UL (4.8-10.8) #H Red Blood Count 4.13 M/UL (4.20-5.40) L Hemoglobin 12.7 G/DL (12.0-16.0) Hematocrit 39.0 % (37.0-47.0) Mean Corpuscular Volume 94 FL (80-99) Mean Corpuscular Hemoglobin 30.7 PG (27.0-31.0) Mean Corpuscular Hemoglobin Concent 32.5 G/DL (32.0-36.0) Red Cell Distribution Width 14.5 % (11.6-14.8) Platelet Count 260 K/UL (150-450) Mean Platelet Volume 6.9 FL (6.5-10.1) Neutrophils (%) (Auto) 77.2 % (45.0-75.0) H Lymphocytes (%) (Auto) 13.9 % (20.0-45.0) L Monocytes (%) (Auto) 5.4 % (1.0-10.0) Eosinophils (%) (Auto) 3.0 % (0.0-3.0) Basophils (%) (Auto) 0.5 % (0.0-2.0) Sodium Level 139 MMOL/L (136-145) Potassium Level 3.9 MMOL/L (3.5-5.1) Chloride Level 105 MMOL/L (98-107) Carbon Dioxide Level 30 MMOL/L (21-32) Anion Gap 4 mmol/L (5-15) L Blood Urea Nitrogen 7 mg/dL (7-18) Creatinine 0.7 MG/DL (0.55-1.30) Estimat Glomerular Filtration Rate > 60 mL/min (>60) Glucose Level 101 MG/DL (74-106) Calcium Level 8.4 MG/DL (8.5-10.1) L Magnesium Level 1.7 MG/DL (1.8-2.4) L Current Medications Medications (Trade) Dose Ordered Sig/Dhruv Route PRN Reason Start Time Stop Time Status Last Admin Dose Admin Bismuth Subsalicylate (Pepto-Bismol) 30 ml FIVE TIMES A DAY ORAL 04/04/19 16:00 05/04/19 15:59 04/04/19 15:50 Docusate Sodium (Colace) 100 mg THREE TIMES A DAY ORAL 04/02/19 13:00 04/30/19 17:59 04/04/19 08:56 Fish Oil (Fish Oil) 1,000 mg BID ORAL 04/02/19 18:00 05/01/19 09:59 04/05/19 08:29 Gabapentin (Neurontin) 300 mg BEDTIME ORAL 04/03/19 21:00 05/01/19 20:59 04/04/19 21:03 Gabapentin (Neurontin) 300 mg THREE TIMES A DAY ORAL 04/03/19 13:00 05/01/19 09:29 04/05/19 13:03 Heparin Sodium (Porcine) (Heparin 5000 units/ml) 5,000 units EVERY 12 HOURS SUBQ 04/02/19 21:00 04/30/19 20:59 04/05/19 08:30 Hydromorphone HCl (Dilaudid) 0.5 mg Q4H PRN IVP For Pain 7 and above 04/03/19 11:15 04/10/19 11:14 04/05/19 09:22 Magnesium Oxide (Mag-Ox 400mg) 400 mg THREE TIMES A DAY ORAL 04/05/19 13:00 05/05/19 12:59 04/05/19 13:03 Midodrine (Pro-Amatine) 2.5 mg THREE TIMES A DAY ORAL 04/02/19 13:00 04/30/19 14:59 04/05/19 08:29 Ondansetron HCl (Zofran) 4 mg Q4H PRN IVP Nausea & Vomiting 04/02/19 12:00 04/30/19 11:59 04/05/19 07:58 Pantoprazole (Protonix) 40 mg EVERY 12 HOURS ORAL 04/02/19 21:00 05/02/19 20:59 04/05/19 08:28 Potassium Chloride (K-Dur) 40 meq TWICE A DAY ORAL 04/04/19 13:15 05/04/19 13:14 04/05/19 08:29 Tramadol HCl (Ultram) 50 mg Q6H PRN ORAL pain 3-6 04/03/19 11:15 04/10/19 11:14 04/05/19 11:33 Manas Ng MD Apr 05, 2019 13:30
--- NOTE | 2019-04-05 14:00 | NUR ---
NURSE NOTES: Pt is in a lot of pain and saying dilaudid 0.5 mg is not enough for her pain. Spoke with Dr. Wiggins who said that he will not increase or change the pain medication. Let the patient know of doctor's orders.
--- NOTE | 2019-04-05 15:29 | NUR ---
*-* INSURANCE *-* UPDATED CLINICALS AND REVIEWS FAXED TO: DIOGENES BARKER: REE P- [phone] [id number] F- [phone]..........REVIEW/CLINICAL
[2019-04-05 16:00] VITALS: BP 99/60
--- NOTE | 2019-04-05 19:28 | NUR ---
HAND-OFF: Report given to CARRIE Donovan. Pt in stable condition; plan of care endorsed.
--- NOTE | 2019-04-05 19:52 | NUR ---
NURSE NOTES: Received report from CARRIE Jaquez. Patient is awake, alert in bed. Bed in low and locked position. Provided safe environment. Abdomen is soft, with abdominal pain, gave PRN pain medication as ordered. Skin is intact, warm and dry to touch. Respiration is even and unlabored. Kept clean and comfortable. Call light is at bedside. Will continue plan of care.
[2019-04-05 20:02] VITALS: BP 117/64
[2019-04-05] MEDS: Zolpidem 5mg tab ORAL PRN (21:02)
--- NOTE | 2019-04-05 21:09 | NUR ---
NURSE NOTES: Patient unable to take larger PO medications , refused 2100 medications. Informed patient that she needs to finish nulytely, patient noted saying its hard to finish because of abdominal pain.
[2019-04-06] VITALS (9 sets, daily range): BP systolic 95–149; BP diastolic 49–80
--- NOTE | 2019-04-06 00:57 | NUR ---
nurse's note: latest bowel movement reveals stool to be watery, yellow in color with no solid food particles noted. patient still has about 1 liter of nulytely remaining; reminded her of NPO status for an early EGD, colonoscopy with Dr. Guerra scheduled at 0700; patient understood teaching.
[2019-04-06] MEDS: Hydromorphone 0.5mg/0.5ml inj IVP PRN ×6 (01:13→21:12)
--- NOTE | 2019-04-06 02:30 | Progress Note ---
DATE: 04/05/2019 INTERNAL MEDICINE PROGRESS NOTE SUBJECTIVE: The patient continues to have abdominal pain and episodes of diarrhea. OBJECTIVE: VITAL SIGNS: Stable. She is afebrile. GENERAL: Mild abdominal tenderness. No guarding or rebound. ABDOMEN: Soft. LABORATORY DATA: White count 12, hemoglobin 12.7. Chemistry panel within normal limits. Magnesium 1.7. IMPRESSION: 1. Colitis. 2. Heme positive stool. 3. Persisting diarrhea and abdominal pain. 4. Positive cocaine screen. 5. Hypomagnesemia. PLAN: 1. Continue antimicrobials. 2. Symptom-guided pain control. 3. IV magnesium. 4. Colonoscopy and endoscopy . 5. Further recommendations to follow once these diagnostic procedures are completed. Eder Wiggins M.D. DR: OLYA JOB#: [id number] CC:
--- NOTE | 2019-04-06 05:30 | NUR ---
NURSE NOTES: Patient in bed, awake, alert and verbally responsive. COmplained of pain 7/10 scale. Given PRN pain medication as ordered. Will continue plan of care. Call light is at bedside. Will reassess patient.
[2019-04-06] MEDS ORDERED: DiphenhydrAMINE 50mg/ml Inj IVP PRN (06:15)
[2019-04-06] MEDS ORDERED: fentaNYL 100 mcg/2 mL IV PRN (06:15)
[2019-04-06] MEDS ORDERED: Atropine Inj 1mg/10ml Syr IV PRN (06:15)
[2019-04-06] MEDS ORDERED: Midazolam 2mg/2ml Inj IVP PRN (06:15)
--- NOTE | 2019-04-06 06:21 | Anethesia Preoperative Eval ---
Anesthesia Pre-op PMH/ROS General Date of Evaluation: Apr 06, 2019 Time of Evaluation: 06:17 Anesthesiologist: librado ASA Score: ASA 3 Mallampati Score Class I : Soft palate, uvula, fauces, pillars visible Class II: Soft palate, uvula, fauces visible Class III: Soft palate, base of uvula visible Class IV: Only hard plate visible Mallampati Classification: Class II Surgeon: jhony Diagnosis: abdominal pain Surgical Procedure: egd/colonoscopy Anesthesia History: none Social History: current smoker, drug use Family History: no anesthesia problems Allergies: Coded Allergies: ASPIRIN (Unverified Adverse Reaction, Mild, GETS NAUSEATED., 02/28/16) PT STATES SHE GETS NAUSEATED. Medications: see eMAR Patient NPO?: Yes Past Medical History Gastrointestinal/Genitourinary: Reports: other - acute renal failure, uti, enteritis Neurologic/Psychiatric: Reports: other - opioid withdrawal Musculoskeletal/Integumentary: Reports: OA, other - low back sprain, knee strain/pain, knee contusion Anesthesia Pre-op Phys. Exam Physician Exam Last Vital Signs Date Time Temp Pulse Resp B/P (MAP) Pulse Ox O2 Delivery O2 Flow Rate FiO2 04/06/19 04:00 98.0 70 20 134/80 (98) 95 04/05/19 20:01 Room Air Room Air 03/31/19 02:30 14.0 Constitutional: NAD Neurologic: CN 2-12 intact Cardiovascular: RRR Respiratory: CTA Gastrointestinal: S/NT/ND Airway Exam Mallampati Score: Class II MO: limited Neck: flexible TMD: 2fb ROM: limited Anesthesia Pre-op A/P Studies Pre-op Studies: EKG - nssttwa, sinus rhythm Risk Assessment & Plan Assessment: asa3 Plan: mac Status Change Before Surgery: No Pre-Antibiotics Drug: Dominique Garcia MD Apr 06, 2019 06:21
[2019-04-06 06:46] LABS: BASOPHILS % (AUTO) 0.4 % (0.0-2.0); EOSINOPHILS % (AUTO) 4.8 % (0.0-3.0); HEMATOCRIT 38.8 % (37.0-47.0); HEMOGLOBIN 12.4 G/DL (12.0-16.0); LYMPHOCYTES % (AUTO) 15.3 % (20.0-45.0); MEAN CORPUSCULAR VOLUME 96 FL (80-99); MONOCYTES % (AUTO) 5.8 % (1.0-10.0); NEUTROPHILS % (AUTO) 73.8 % (45.0-75.0); PLATELET COUNT 263 K/UL (150-450); RED BLOOD COUNT 4.04 M/UL (4.20-5.40); RED CELL DISTRIBUTION WIDTH 14.4 % (11.6-14.8); WHITE BLOOD COUNT 12.6 K/UL (4.8-10.8)
[2019-04-06 06:50] LABS: ALANINE AMINOTRANSFERASE 16 U/L (12-78); ALBUMIN 3.3 G/DL (3.4-5.0); ALBUMIN/GLOBULIN RATIO 0.9 (1.0-2.7); ALKALINE PHOSPHATASE 48 U/L (46-116); ANION GAP 4 mmol/L (5-15); ASPARTATE AMINO TRANSFERASE 26 U/L (15-37); BILIRUBIN,TOTAL 0.7 MG/DL (0.2-1.0); BLOOD UREA NITROGEN 6 mg/dL (7-18); CALCIUM 9.3 MG/DL (8.5-10.1); CARBON DIOXIDE 33 MMOL/L (21-32); CHLORIDE 101 MMOL/L (98-107); CREATININE 0.8 MG/DL (0.55-1.30); POTASSIUM 3.9 MMOL/L (3.5-5.1); SODIUM 138 MMOL/L (136-145)
--- NOTE | 2019-04-06 06:55 | NUR ---
NURSE NOTES: Patient off the floor for a procedure.
[2019-04-06] MEDS: Bismuth Subsalicylate 30ml ORAL SCH ×5 (07:00→19:00)
[2019-04-06] MEDS ORDERED: Propofol 200mg/20ml IV ONE (07:00)
[2019-04-06] MEDS ORDERED: Lidocaine 1% MPF 10mg/ml 5ml ONE (07:00)
--- NOTE | 2019-04-06 07:01 | Pre-Procedure Note/Attestation ---
Pre-Procedure Note/Attestation Complete Prior to Procedure Planned Procedure: not applicable Procedure Narrative: Endoscopy and Colonoscopy Indications for Procedure Pre-Operative Diagnosis: Heme (+) stools Attestation I attest that I discussed the nature of the procedure; its benefits; risks and complications; and alternatives (and the risks and benefits of such alternatives ), prior to the procedure, with the patient (or the patient's legal sales and merchandising representative). I attest that, if there was a reasonable possibility of needing a blood transfusion, the patient (or the patient's legal sales and merchandising representative) was given the [facility] standardized written summary, pursuant to the Napoleon Romeo Blood Safety Act ([place] Health and Safety Code # 1645, as amended). I attest that I re-evaluated the patient just prior to the surgery and that there has been no change in the patient's H&P, except as documented below: Moni Webster MD Apr 06, 2019 07:01
--- NOTE | 2019-04-06 07:01 | General Progress Note ---
Assessment/Plan Assessment/Plan: Assessment - acute N/V/D - resolved vomiting but still with pain and loose BM - Acute renal failure - resolved - Leukocytosis - CT e/o enteritis - Heme (+) stools - Cocaine (+) screen Recommendations - NPO - Pepcid - Zofran PRN - IV hydration - abx - follow labs - EGD/Colon today Subjective Allergies: Coded Allergies: ASPIRIN (Unverified Adverse Reaction, Mild, GETS NAUSEATED., 02/28/16) PT STATES SHE GETS NAUSEATED. Subjective c/o abd pain C diff (-) , Culture (-), OB (+) For panendoscopy today Objective Last 24 Hour Vital Signs Date Time Temp Pulse Resp B/P (MAP) Pulse Ox O2 Delivery O2 Flow Rate FiO2 04/06/19 04:00 98.0 70 20 134/80 (98) 95 04/05/19 20:02 98.2 78 18 117/64 (81) 96 04/05/19 20:01 Room Air Room Air 04/05/19 16:00 98.1 65 18 99/60 (73) 97 04/05/19 12:00 98.4 69 20 125/66 (85) 96 04/05/19 09:00 Room Air Room Air 04/05/19 08:00 97.5 69 18 85/53 (64) 97 Intake and Output 04/05/19 04/06/19 19:00 07:00 Intake Total 400 ml 200 ml Balance 400 ml 200 ml Intake Oral 400 ml IV Total 200 ml # Voids 2 3 # Bowel Movements 2 Laboratory Tests 04/06/19 05:10: White Blood Count 12.6H, Red Blood Count 4.04L, Hemoglobin 12.4, Hematocrit 38.8 , Mean Corpuscular Volume 96, Mean Corpuscular Hemoglobin 30.8, Mean Corpuscular Hemoglobin Concent 32.1, Red Cell Distribution Width 14.4, Platelet Count 263, Mean Platelet Volume 7.1, Neutrophils (%) (Auto) 73.8, Lymphocytes (% ) (Auto) 15.3L, Monocytes (%) (Auto) 5.8, Eosinophils (%) (Auto) 4.8H, Basophils (%) (Auto) 0.4, Sodium Level 138, Potassium Level 3.9, Chloride Level 101, Carbon Dioxide Level 33H, Anion Gap 4L, Blood Urea Nitrogen 6L, Creatinine 0.8, Estimat Glomerular Filtration Rate > 60, Glucose Level 93, Calcium Level 9.3, Total Bilirubin 0.7, Aspartate Amino Transf (AST/SGOT) 26, Alanine Aminotransferase (ALT/SGPT) 16, Alkaline Phosphatase 48, Total Protein 7.0, Albumin 3.3L, Globulin 3.7, Albumin/Globulin Ratio 0.9L Height (Feet): 5 Height (Inches): 5.00 Weight (Pounds): 202 Objective WDWN NCAT supple CTA RRR abd soft ND NT no edema Moni Webster MD Apr 06, 2019 07:01
[2019-04-06] MEDS ORDERED: NS 500ML IVPB ONE (07:04)
--- NOTE | 2019-04-06 07:21 | NUR ---
HAND-OFF: Report given to Luda Montemayor.
--- NOTE | 2019-04-06 07:30 | NUR ---
NURSE NOTES: Patient off unit for procedure.
--- NOTE | 2019-04-06 07:50 | Endoscopy Procedure Note ---
Endoscopy Procedure Note General Indication for Procedure: Heme (+) Procedures Performed: EGD, colonoscopy Operative Findings/Diagnosis: HH, distal gastritis, erythema near IC, tics, bx D,A,F,TI,IC, R/L colon Specimen: yes Pt Tolerated Procedure Well: Yes Estimated Blood Loss: none Anesthesia Anesthesiologist: Colin Perry Anesthesia: MAC Medications Medication Given: see anesthesia record Inserted Devices Implant(s) used?: No GI Core Measures 50 yrs or older w/o bx or poly: Not Applicable 10yrs. F/U recommended: Not Applicable If not recommended, why?: Moni Webster MD Apr 06, 2019 07:50
--- NOTE | 2019-04-06 07:53 | Brief Operative Note ---
Immediate Post Operative Note Operative Note Chief Complaint: Heme (+) Pre-op Diagnosis: Heme (+) stools Procedure: EGD/Colon bx/ bx Post-op Diagnosis: HH, charlette, colon eryth nearDARNELL, tics Surgeon: jhony Anesthesiologist: lisy somers Anesthesia: MAC Specimen: yes Complications: none Condition: stable Fluids: recorded Estimated Blood Loss: none Drains: none Implant(s) used?: No Moni Webster MD Apr 06, 2019 07:53
--- NOTE | 2019-04-06 08:30 | NUR ---
NURSE NOTES: Patient came back from procedure in stable condition. Complain of abdominal pain and will administer pain medication as ordered. Vital signs stable.
[2019-04-06] MEDS: Docusate 100mg cap ORAL SCH ×3 (09:00→18:00)
--- NOTE | 2019-04-06 09:02 | Immediate Post-Op Evaluation ---
Immediate Post-Op Evalulation Immediate Post-Op Evalulation Procedure: egd/colonoscopy/bx Date of Evaluation: Apr 06, 2019 Time of Evaluation: 08:07 IV Fluids: 300ml 0.9ns Blood Products: none Estimated Blood Loss: negligible Blood Pressure Systolic: 103 Blood Pressure Diastolic: 67 Pulse Rate: 81 Respiratory Rate: 18 O2 Sat by Pulse Oximetry: 99 Temperature (Fahrenheit): 97.9 Pain Score (1-10): 0 Nausea: No Vomiting: No Complications none Patient Status: awake, reacts, patent Hydration Status: adequate Drug: Dominique Garcia MD Apr 06, 2019 09:02
--- NOTE | 2019-04-06 09:03 | 48 Hour Post Anesthesia Eval ---
Post Anesthesia Evaluation Procedure: egd/colonoscopy/bx Date of Evaluation: Apr 06, 2019 Time of Evaluation: 08:09 Blood Pressure Systolic: 113 0: 57 Pulse Rate: 74 Respiratory Rate: 18 Temperature (Fahrenheit): 97.9 O2 Sat by Pulse Oximetry: 99 Airway: patent Nausea: No Vomiting: No Pain Intensity: 0 Hydration Status: adequate Cardiopulmonary Status: stable Mental Status/LOC: patient returned to baseline Post-Anesthesia Complications: none Follow-up care needed: N/A Dominique Lopez MD Apr 06, 2019 09:03
[2019-04-06] MEDS: Heparin 5000 units/ml inj SUBQ SCH ×2 (09:11→21:13)
--- NOTE | 2019-04-06 11:12 | Infectious Diseases Prog Note ---
Assessment/Plan Assessment/Plan antibiotics : none A 1. gastroenteritis improving 2. leucocytosis resolved 3. renal failure improving P 1. continue off antibiotics Subjective Constitutional: Denies: fever, chills Respiratory: Denies: shortness of breath, dry cough Gastrointestinal/Abdominal: Reports: nausea, vomiting, diarrhea Musculoskeletal: Reports: pain - in abdomen Allergies: Coded Allergies: ASPIRIN (Unverified Adverse Reaction, Mild, GETS NAUSEATED., 02/28/16) PT STATES SHE GETS NAUSEATED. Objective Vital Signs Last 24 Hour Vital Signs Date Time Temp Pulse Resp B/P (MAP) Pulse Ox O2 Delivery O2 Flow Rate FiO2 04/06/19 09:03 74 18 99 04/06/19 09:02 81 18 99 04/06/19 09:00 Room Air Room Air 04/06/19 08:30 99.0 74 20 115/49 (71) 99 04/06/19 08:20 97.6 72 21 127/58 98 Room Air 04/06/19 08:10 74 22 113/57 98 Room Air 04/06/19 08:00 72 24 103/67 97 Room Air 04/06/19 07:55 97.9 76 22 103/63 100 Nasal Cannula 3 04/06/19 04:00 98.0 70 20 134/80 (98) 95 04/05/19 20:02 98.2 78 18 117/64 (81) 96 04/05/19 20:01 Room Air Room Air 04/05/19 16:00 98.1 65 18 99/60 (73) 97 04/05/19 12:00 98.4 69 20 125/66 (85) 96 Height (Feet): 5 Height (Inches): 5.00 Weight (Pounds): 202 Respiratory/Chest: lungs clear Cardiovascular: normal rate, regular rhythm, no gallop/murmur Abdomen: soft, non tender Extremities: no edema Laboratory Tests Test 04/06/19 05:10 White Blood Count 12.6 K/UL (4.8-10.8) H Red Blood Count 4.04 M/UL (4.20-5.40) L Hemoglobin 12.4 G/DL (12.0-16.0) Hematocrit 38.8 % (37.0-47.0) Mean Corpuscular Volume 96 FL (80-99) Mean Corpuscular Hemoglobin 30.8 PG (27.0-31.0) Mean Corpuscular Hemoglobin Concent 32.1 G/DL (32.0-36.0) Red Cell Distribution Width 14.4 % (11.6-14.8) Platelet Count 263 K/UL (150-450) Mean Platelet Volume 7.1 FL (6.5-10.1) Neutrophils (%) (Auto) 73.8 % (45.0-75.0) Lymphocytes (%) (Auto) 15.3 % (20.0-45.0) L Monocytes (%) (Auto) 5.8 % (1.0-10.0) Eosinophils (%) (Auto) 4.8 % (0.0-3.0) H Basophils (%) (Auto) 0.4 % (0.0-2.0) Sodium Level 138 MMOL/L (136-145) Potassium Level 3.9 MMOL/L (3.5-5.1) Chloride Level 101 MMOL/L (98-107) Carbon Dioxide Level 33 MMOL/L (21-32) H Anion Gap 4 mmol/L (5-15) L Blood Urea Nitrogen 6 mg/dL (7-18) L Creatinine 0.8 MG/DL (0.55-1.30) Estimat Glomerular Filtration Rate > 60 mL/min (>60) Glucose Level 93 MG/DL (74-106) Calcium Level 9.3 MG/DL (8.5-10.1) Total Bilirubin 0.7 MG/DL (0.2-1.0) Aspartate Amino Transf (AST/SGOT) 26 U/L (15-37) Alanine Aminotransferase (ALT/SGPT) 16 U/L (12-78) Alkaline Phosphatase 48 U/L (46-116) Total Protein 7.0 G/DL (6.4-8.2) Albumin 3.3 G/DL (3.4-5.0) L Globulin 3.7 g/dL Albumin/Globulin Ratio 0.9 (1.0-2.7) L Current Medications Medications (Trade) Dose Ordered Sig/Dhruv Route PRN Reason Start Time Stop Time Status Last Admin Dose Admin Al Hydroxide/Mg Hydroxide (Mylanta) 15 ml Q1H PRN ORAL gi upset 04/06/19 06:15 04/06/19 12:00 Atropine Sulfate (Atropine) 0.5 mg Q5M PRN IV bpm less than 45 04/06/19 06:15 04/06/19 12:00 Bismuth Subsalicylate (Pepto-Bismol) 30 ml FIVE TIMES A DAY ORAL 04/04/19 16:00 05/04/19 15:59 04/06/19 10:24 Diphenhydramine HCl (Benadryl) 25 mg Q15M PRN IVP Itching 04/06/19 06:15 04/06/19 12:00 Docusate Sodium (Colace) 100 mg THREE TIMES A DAY ORAL 04/02/19 13:00 04/30/19 17:59 04/04/19 08:56 Fentanyl Citrate (Sublimaze 100 mcg/2 mL) 25 mcg Q10M PRN IV Moderate Pain (Pain Scale 4-6) 04/06/19 06:15 04/06/19 12:00 Fish Oil (Fish Oil) 1,000 mg BID ORAL 04/02/19 18:00 05/01/19 09:59 04/06/19 09:08 Gabapentin (Neurontin) 300 mg BEDTIME ORAL 04/03/19 21:00 05/01/19 20:59 04/04/19 21:03 Gabapentin (Neurontin) 300 mg THREE TIMES A DAY ORAL 04/03/19 13:00 05/01/19 09:29 04/06/19 09:08 Heparin Sodium (Porcine) (Heparin 5000 units/ml) 5,000 units EVERY 12 HOURS SUBQ 04/02/19 21:00 04/30/19 20:59 04/06/19 09:11 Hydralazine HCl (Apresoline) 5 mg Q30M PRN IV SBP>160 OR___/DBP>90 OR___ 04/06/19 06:15 04/06/19 12:00 Hydromorphone HCl (Dilaudid) 0.5 mg Q4H PRN IVP For Pain 7 and above 04/03/19 11:15 04/10/19 11:14 04/06/19 09:24 Midazolam HCl (Versed 2mg/2ml vial) 1 mg Q15M PRN IVP For Anxiety 04/06/19 06:15 04/06/19 12:00 Midodrine (Pro-Amatine) 2.5 mg THREE TIMES A DAY ORAL 04/02/19 13:00 04/30/19 14:59 04/05/19 18:02 Ondansetron HCl (Zofran) 4 mg Q1H PRN IVP Nausea & Vomiting 04/06/19 06:15 04/06/19 12:00 Ondansetron HCl (Zofran) 4 mg Q4H PRN IVP Nausea & Vomiting 04/02/19 12:00 04/30/19 11:59 04/06/19 03:01 Pantoprazole (Protonix) 40 mg EVERY 12 HOURS ORAL 04/02/19 21:00 05/02/19 20:59 04/06/19 09:08 Potassium Chloride (K-Dur) 20 meq TWICE A DAY ORAL 04/06/19 09:00 05/06/19 08:59 04/06/19 09:08 Sodium Chloride 1,000 ml @ 10 mls/hr Q24H IVLG 04/06/19 06:14 04/06/19 12:00 Tramadol HCl (Ultram) 50 mg Q6H PRN ORAL pain 3-6 04/03/19 11:15 04/10/19 11:14 04/05/19 19:42 Zolpidem Tartrate (Ambien) 5 mg HSPRN PRN ORAL Insomnia 04/05/19 21:00 04/12/19 20:59 04/05/19 21:02 Kwadwo Platt MD Apr 06, 2019 11:12
--- NOTE | 2019-04-06 13:06 | NUR ---
CASE MANAGEMENT:REVIEW 04/06/19 SI: RECOVERING SEPSIS. COLITIS ABDOMINAL PAIN. DIARRHEA 97.9 76 22 103/63 98% ON RA WBC+12.6 IS: PEPTO BISMOL PO 5X'S/DAY NEURONTIN PO TID IV DILAUDID 0.5MG Q4HRS PRN HEPARIN SQ Q12 PROTONIX PO Q12 MIDODRINE PO TID : MED/SURG STATUS 3 EAST DCP: HOME PLAN: EGD/COLONOSCOPY CONTINUE OFF ANTIBIOTICS
--- NOTE | 2019-04-06 15:15 | NUR ---
*-* INSURANCE *-* UPDATED CLINICALS AND REVIEWS FAXED TO: DIOGENES BARKER: REE P- [phone] [id number] F- [phone]..........REVIEW/CLINICAL
--- NOTE | 2019-04-06 16:20 | Nephrology Progress Note ---
Assessment/Plan Problem List: (1) Acute kidney injury Assessment: resolved (2) Leukocytosis (3) Hypotension (4) Chronic pain (5) Cocaine abuse Assessment Acute renal failure: Etiology?? Acute kidney injury WAS TAKING LOTS OF NSAIDs Oliguria Hypotension Leukocytosis, sepsis , Enteritis Cocaine in urine Plan post endoscopy- Gastritis PT eval CALLI Kidney noted Urine studies noted Avoid nephrotoxics start Fish oil and Neurontin per orders stable from renal stand Subjective ROS Limited/Unobtainable: No Constitutional: Reports: malaise Objective Objective Last 24 Hour Vital Signs Date Time Temp Pulse Resp B/P (MAP) Pulse Ox O2 Delivery O2 Flow Rate FiO2 04/06/19 12:00 98.2 67 16 112/59 (76) 99 04/06/19 09:03 74 18 99 04/06/19 09:02 81 18 99 04/06/19 09:00 Room Air Room Air 04/06/19 08:30 99.0 74 20 115/49 (71) 99 04/06/19 08:20 97.6 72 21 127/58 98 Room Air 04/06/19 08:10 74 22 113/57 98 Room Air 04/06/19 08:00 72 24 103/67 97 Room Air 04/06/19 07:55 97.9 76 22 103/63 100 Nasal Cannula 3 04/06/19 04:00 98.0 70 20 134/80 (98) 95 04/05/19 20:02 98.2 78 18 117/64 (81) 96 04/05/19 20:01 Room Air Room Air Intake and Output 04/05/19 04/06/19 19:00 07:00 Intake Total 400 ml 200 ml Balance 400 ml 200 ml Intake Oral 400 ml IV Total 200 ml # Voids 2 3 # Bowel Movements 2 Laboratory Tests 04/06/19 05:10: White Blood Count 12.6H, Red Blood Count 4.04L, Hemoglobin 12.4, Hematocrit 38.8 , Mean Corpuscular Volume 96, Mean Corpuscular Hemoglobin 30.8, Mean Corpuscular Hemoglobin Concent 32.1, Red Cell Distribution Width 14.4, Platelet Count 263, Mean Platelet Volume 7.1, Neutrophils (%) (Auto) 73.8, Lymphocytes (% ) (Auto) 15.3L, Monocytes (%) (Auto) 5.8, Eosinophils (%) (Auto) 4.8H, Basophils (%) (Auto) 0.4, Sodium Level 138, Potassium Level 3.9, Chloride Level 101, Carbon Dioxide Level 33H, Anion Gap 4L, Blood Urea Nitrogen 6L, Creatinine 0.8, Estimat Glomerular Filtration Rate > 60, Glucose Level 93, Calcium Level 9.3, Total Bilirubin 0.7, Aspartate Amino Transf (AST/SGOT) 26, Alanine Aminotransferase (ALT/SGPT) 16, Alkaline Phosphatase 48, Total Protein 7.0, Albumin 3.3L, Globulin 3.7, Albumin/Globulin Ratio 0.9L Height (Feet): 5 Height (Inches): 5.00 Weight (Pounds): 202 General Appearance: no apparent distress Objective no change Sherman Martinez MD Apr 06, 2019 16:20
--- NOTE | 2019-04-06 18:45 | Operative Note - Dictated ---
DATE OF OPERATION: 04/06/2019 SURGEON: Moni Webster M.D. PROCEDURES PERFORMED: Upper endoscopy and colonoscopy. PRE-ENDOSCOPIC DIAGNOSIS: Heme-positive stools. POST-ENDOSCOPIC DIAGNOSES: 1. Incidental 2-3-cm hiatal hernia. 2. Erosive gastritis in the distal antrum, status post biopsy. 3. Random biopsies of normal duodenum and proximal stomach. 4. Normal terminal ileum. 5. A patch of erythema on the ileocecal valve area of unclear significance, status post biopsy. 6. Rare diverticulosis. 7. Status post random biopsies of terminal ileum, right colon, and left colon as well as biopsies of the erythematous area around the ileocecal valve. DESCRIPTION OF PROCEDURE: The procedure, its risks, indications, alternatives, and possible complications were explained and an informed consent was obtained. The patient was sedated and a diagnostic upper endoscope was introduced through oropharynx and advanced to the duodenum. It was gradually withdrawn and then rectal exam was done and colonoscope was introduced into the rectum and advanced to the terminal ileum. It was then gradually withdrawn. The upper and lower gastrointestinal examinations were both terminated with retroflexed views up to stomach and rectum respectively. The patient was sent to recovery in good condition. Findings were as listed above. RECOMMENDATIONS: 1. Follow up biopsy results. 2. Resume oral diet. 3. The heme-positive stools are presumed to be due to erosive distal gastritis, but the patient's stools will be rechecked and monitored too as an outpatient for stool occult blood. 4. If stool occult blood remains positive at followup, then capsule endoscopy can be considered. Moni Webster M.D. DR: Estrella JOB#: [id number] CC:
--- NOTE | 2019-04-06 19:20 | NUR ---
NURSE NOTES: Report taken from CARRIE Montemayor. Patient is awake and in bed, family at bedside. A&Ox4. No signs of distress on room air. Having complaints of pain, specifically when she takes PO meds and food, 03/17. Gets "cramping" feeling. IV site c/d/i and patent, no fluids running. Skin is intact, clean and dry. Bed in lowest position, call light within reach.
--- NOTE | 2019-04-06 19:30 | NUR ---
HAND-OFF: Report given to Abhijit BUTLER. Patient in stable condition.
[2019-04-06] MEDS ORDERED: Isovue-300 100ml vial INJ PRN (22:00)
[2019-04-06] MEDS: Zolpidem 5mg tab ORAL PRN (22:18)
[2019-04-06 23:58] LABS: APPEARANCE,URINE SLIGHTLY CLOUDY; BILIRUBIN, URINE NEGATIVE (NEGATIVE); COLOR,URINE PALE YELLOW; GLUCOSE, URINE (UA) NEGATIVE (NEGATIVE); KETONES,URINE 1+ (NEGATIVE); NITRITE,URINE NEGATIVE (NEGATIVE); PH,URINE 7 (4.5-8.0); PROTEIN,URINE NEGATIVE (NEGATIVE); UROBILINOGEN,URINE NORMAL MG/DL (0.0-1.0)
[2019-04-07] VITALS: BP 112/62
[2019-04-07 00:20] LABS: LEUKOCYTE ESTERASE ,URINE 1+ (NEGATIVE)
[2019-04-07] MEDS: Hydromorphone 0.5mg/0.5ml inj IVP PRN ×4 (02:11→14:34)
--- NOTE | 2019-04-07 02:15 | Progress Note ---
DATE: 04/06/2019 INTERNAL MEDICINE PROGRESS NOTE SUBJECTIVE: The patient is status post panendoscopy today, mild gastritis noted, biopsies taken. The patient still has abdominal pain and some diarrhea. OBJECTIVE: VITAL SIGNS: Stable. She is afebrile. ABDOMEN: Exam notable for soft belly abdomen with no focal tenderness. PLAN: 1. CT of the abdomen. 2. Discontinue Dilaudid following CT scan. 3. Followup biopsy results. 4. Antibiotics per Infectious Disease fitness consultant. 5. Discharge planning. Eder Wiggins M.D. DR: ALLEY JOB#: [id number] CC:
[2019-04-07 04:00] VITALS: BP 113/67
[2019-04-07 05:13] LABS: BASOPHILS % (AUTO) 0.5 % (0.0-2.0); EOSINOPHILS % (AUTO) 5.5 % (0.0-3.0); HEMATOCRIT 34.4 % (37.0-47.0); HEMOGLOBIN 11.1 G/DL (12.0-16.0); LYMPHOCYTES % (AUTO) 15.6 % (20.0-45.0); MEAN CORPUSCULAR VOLUME 95 FL (80-99); NEUTROPHILS % (AUTO) 72.5 % (45.0-75.0); PLATELET COUNT 232 K/UL (150-450); RED BLOOD COUNT 3.64 M/UL (4.20-5.40); RED CELL DISTRIBUTION WIDTH 14.2 % (11.6-14.8); WHITE BLOOD COUNT 8.9 K/UL (4.8-10.8)
[2019-04-07 05:47] LABS: ALANINE AMINOTRANSFERASE 26 U/L (12-78); ALBUMIN 3.1 G/DL (3.4-5.0); ALBUMIN/GLOBULIN RATIO 0.9 (1.0-2.7); ALKALINE PHOSPHATASE 42 U/L (46-116); ANION GAP 6 mmol/L (5-15); BILIRUBIN,TOTAL 0.7 MG/DL (0.2-1.0); BLOOD UREA NITROGEN 6 mg/dL (7-18); CALCIUM 9.2 MG/DL (8.5-10.1); CARBON DIOXIDE 31 MMOL/L (21-32); CHLORIDE 102 MMOL/L (98-107); CREATININE 0.8 MG/DL (0.55-1.30); POTASSIUM 3.6 MMOL/L (3.5-5.1); SODIUM 139 MMOL/L (136-145)
[2019-04-07 06:28] LABS: ASPARTATE AMINO TRANSFERASE 38 U/L (15-37)
[2019-04-07] MEDS: Bismuth Subsalicylate 30ml ORAL SCH ×5 (07:00→19:04)
--- NOTE | 2019-04-07 07:22 | NUR ---
HAND-OFF: Report given to CARRIE Brown. Patient stable.
--- NOTE | 2019-04-07 07:32 | NUR ---
NURSE NOTES: Received report from Abhijit BUTLER. Patient is asleep during rounds, no acute distress noted, RR even and unlabored. Will further assess patient when awake. Side rails upx2, bed low and locked, call light in reach. Will continue to monitor.
[2019-04-07 07:57] VITALS: BP 112/65
--- NOTE | 2019-04-07 08:20 | NUR ---
NURSE NOTES: Patient is awake now. Oral contrasted for CT started, noted LFA IV slipped out intact, disposed of IV catheter. Will start new IV. Will contact radiology when oral CT contrast complete. Addendum: 04/07/19 at 0824 by Stephanie Jamil RN Edit: Oral contrast (not oral contrasted)
[2019-04-07] MEDS: Heparin 5000 units/ml inj SUBQ SCH ×2 (08:57→21:00)
[2019-04-07] MEDS: Docusate 100mg cap ORAL SCH ×3 (09:00→17:54)
--- NOTE | 2019-04-07 10:24 | Infectious Diseases Prog Note ---
Assessment/Plan Assessment/Plan antibiotics : none A 1. gastroenteritis improving 2. leucocytosis resolved 3. renal failure improving P 1. continue off antibiotics Subjective ROS Limited/Unobtainable: Yes Constitutional: Denies: fever, chills Respiratory: Denies: shortness of breath, dry cough Gastrointestinal/Abdominal: Reports: nausea - decreased; Denies: vomiting Musculoskeletal: Reports: pain - abdominal Allergies: Coded Allergies: ASPIRIN (Unverified Adverse Reaction, Mild, GETS NAUSEATED., 02/28/16) PT STATES SHE GETS NAUSEATED. Objective Vital Signs Last 24 Hour Vital Signs Date Time Temp Pulse Resp B/P (MAP) Pulse Ox O2 Delivery O2 Flow Rate FiO2 04/07/19 09:00 Room Air Room Air 04/07/19 07:57 98.9 72 16 112/65 (81) 97 04/07/19 04:00 98.6 65 17 113/67 (82) 93 04/07/19 00:00 98.4 75 17 112/62 (79) 92 04/06/19 21:00 Room Air Room Air 04/06/19 20:00 98.6 71 17 95/64 (74) 94 04/06/19 16:00 98.6 69 15 149/75 (99) 99 04/06/19 12:00 98.2 67 16 112/59 (76) 99 Height (Feet): 5 Height (Inches): 5.00 Weight (Pounds): 200 Respiratory/Chest: lungs clear Cardiovascular: normal rate, regular rhythm, no gallop/murmur Abdomen: soft, non tender Extremities: no edema Laboratory Tests Test 04/06/19 23:50 04/07/19 04:40 Urine Color Pale yellow Urine Appearance Slightly cloudy Urine pH 7 (4.5-8.0) Urine Specific [place] 1.010 (1.005-1.035) Urine Protein Negative (NEGATIVE) Urine Glucose (UA) Negative (NEGATIVE) Urine Ketones 1+ (NEGATIVE) H Urine Blood 1+ (NEGATIVE) H Urine Nitrite Negative (NEGATIVE) Urine Bilirubin Negative (NEGATIVE) Urine Urobilinogen Normal MG/DL (0.0-1.0) Urine Leukocyte Esterase 1+ (NEGATIVE) H Urine RBC 2-4 /HPF (0 - 2) H Urine WBC 2-4 /HPF (0 - 2) Urine Squamous Epithelial Cells Many /LPF (NONE/OCC) H Urine Amorphous Sediment Many /LPF (NONE) H Urine Bacteria Moderate /HPF (NONE) H White Blood Count 8.9 K/UL (4.8-10.8) Red Blood Count 3.64 M/UL (4.20-5.40) L Hemoglobin 11.1 G/DL (12.0-16.0) L Hematocrit 34.4 % (37.0-47.0) L Mean Corpuscular Volume 95 FL (80-99) Mean Corpuscular Hemoglobin 30.6 PG (27.0-31.0) Mean Corpuscular Hemoglobin Concent 32.3 G/DL (32.0-36.0) Red Cell Distribution Width 14.2 % (11.6-14.8) Platelet Count 232 K/UL (150-450) Mean Platelet Volume 7.6 FL (6.5-10.1) Neutrophils (%) (Auto) 72.5 % (45.0-75.0) Lymphocytes (%) (Auto) 15.6 % (20.0-45.0) L Monocytes (%) (Auto) 6.0 % (1.0-10.0) Eosinophils (%) (Auto) 5.5 % (0.0-3.0) H Basophils (%) (Auto) 0.5 % (0.0-2.0) Sodium Level 139 MMOL/L (136-145) Potassium Level 3.6 MMOL/L (3.5-5.1) Chloride Level 102 MMOL/L (98-107) Carbon Dioxide Level 31 MMOL/L (21-32) Anion Gap 6 mmol/L (5-15) Blood Urea Nitrogen 6 mg/dL (7-18) L Creatinine 0.8 MG/DL (0.55-1.30) Estimat Glomerular Filtration Rate > 60 mL/min (>60) Glucose Level 92 MG/DL (74-106) Calcium Level 9.2 MG/DL (8.5-10.1) Total Bilirubin 0.7 MG/DL (0.2-1.0) Aspartate Amino Transf (AST/SGOT) 38 U/L (15-37) H Alanine Aminotransferase (ALT/SGPT) 26 U/L (12-78) Alkaline Phosphatase 42 U/L (46-116) L Total Protein 6.7 G/DL (6.4-8.2) Albumin 3.1 G/DL (3.4-5.0) L Globulin 3.6 g/dL Albumin/Globulin Ratio 0.9 (1.0-2.7) L Current Medications Medications (Trade) Dose Ordered Sig/Dhruv Route PRN Reason Start Time Stop Time Status Last Admin Dose Admin Barium Sulfate (Readi-Cat 2) 450 ml NOW PRN ORAL Radiology Procedure 04/06/19 22:00 04/08/19 21:46 Bismuth Subsalicylate (Pepto-Bismol) 30 ml FIVE TIMES A DAY ORAL 04/04/19 16:00 05/04/19 15:59 04/06/19 12:49 Docusate Sodium (Colace) 100 mg THREE TIMES A DAY ORAL 04/02/19 13:00 04/30/19 17:59 04/04/19 08:56 Fish Oil (Fish Oil) 1,000 mg BID ORAL 04/02/19 18:00 05/01/19 09:59 04/07/19 08:56 Gabapentin (Neurontin) 300 mg BEDTIME ORAL 04/03/19 21:00 05/01/19 20:59 04/06/19 21:10 Gabapentin (Neurontin) 300 mg THREE TIMES A DAY ORAL 04/03/19 13:00 05/01/19 09:29 04/07/19 08:56 Heparin Sodium (Porcine) (Heparin 5000 units/ml) 5,000 units EVERY 12 HOURS SUBQ 04/02/19 21:00 04/30/19 20:59 04/07/19 08:57 Hydromorphone HCl (Dilaudid) 0.5 mg Q4H PRN IVP For Pain 7 and above 04/03/19 11:15 04/10/19 11:14 04/07/19 06:10 Iopamidol (Isovue-300 100ml) 100 ml NOW PRN INJ Radiology Procedure 04/06/19 22:00 04/08/19 21:59 Midodrine (Pro-Amatine) 2.5 mg THREE TIMES A DAY ORAL 04/02/19 13:00 04/30/19 14:59 04/05/19 18:02 Ondansetron HCl (Zofran) 4 mg Q4H PRN IVP Nausea & Vomiting 04/02/19 12:00 04/30/19 11:59 04/06/19 12:50 Pantoprazole (Protonix) 40 mg EVERY 12 HOURS ORAL 04/02/19 21:00 05/02/19 20:59 04/07/19 08:56 Potassium Chloride (K-Dur) 20 meq TWICE A DAY ORAL 04/06/19 09:00 05/06/19 08:59 04/06/19 09:08 Tramadol HCl (Ultram) 50 mg Q6H PRN ORAL pain 3-6 04/03/19 11:15 04/10/19 11:14 04/05/19 19:42 Zolpidem Tartrate (Ambien) 5 mg HSPRN PRN ORAL Insomnia 04/05/19 21:00 04/12/19 20:59 04/06/19 22:18 Kwadwo Platt MD Apr 07, 2019 10:24
--- NOTE | 2019-04-07 10:39 | NUR ---
NURSE NOTES: IV access obtained. 22g RFA IV, patent, flushing well. Administered PRN pain medication. 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
--- NOTE | 2019-04-07 10:55 | Nephrology Progress Note ---
Assessment/Plan Problem List: (1) Acute kidney injury Assessment: resolved (2) Leukocytosis (3) Hypotension (4) Chronic pain (5) Cocaine abuse Assessment Acute renal failure: Etiology?? Acute kidney injury WAS TAKING LOTS OF NSAIDs Oliguria Hypotension Leukocytosis, sepsis , Enteritis Cocaine in urine Plan endoscopy - Gastritis PT eval CALLI Kidney noted Urine studies noted Avoid nephrotoxics start Fish oil and Neurontin per orders stable from renal stand Dc planning Subjective ROS Limited/Unobtainable: No Constitutional: Reports: malaise Objective Objective Last 24 Hour Vital Signs Date Time Temp Pulse Resp B/P (MAP) Pulse Ox O2 Delivery O2 Flow Rate FiO2 04/07/19 09:00 Room Air Room Air 04/07/19 07:57 98.9 72 16 112/65 (81) 97 04/07/19 04:00 98.6 65 17 113/67 (82) 93 04/07/19 00:00 98.4 75 17 112/62 (79) 92 04/06/19 21:00 Room Air Room Air 04/06/19 20:00 98.6 71 17 95/64 (74) 94 04/06/19 16:00 98.6 69 15 149/75 (99) 99 04/06/19 12:00 98.2 67 16 112/59 (76) 99 Intake and Output 04/06/19 04/07/19 19:00 07:00 Intake Total 950 ml 480 ml Output Total 0 ml Balance 950 ml 480 ml Intake Oral 600 ml 480 ml IV Total 350 ml Estimated Blood Loss 0 ml # Voids 4 3 Laboratory Tests 04/06/19 23:50: Urine Color Pale yellow, Urine Appearance Slightly cloudy, Urine pH 7, Urine Specific [place] 1.010, Urine Protein Negative, Urine Glucose (UA) Negative, Urine Ketones 1+H, Urine Blood 1+H, Urine Nitrite Negative, Urine Bilirubin Negative, Urine Urobilinogen Normal, Urine Leukocyte Esterase 1+H, Urine RBC 2- 4H, Urine WBC 2-4, Urine Squamous Epithelial Cells ManyH, Urine Amorphous Sediment ManyH, Urine Bacteria ModerateH 04/07/19 04:40: White Blood Count 8.9, Red Blood Count 3.64L, Hemoglobin 11.1L, Hematocrit 34.4L , Mean Corpuscular Volume 95, Mean Corpuscular Hemoglobin 30.6, Mean Corpuscular Hemoglobin Concent 32.3, Red Cell Distribution Width 14.2, Platelet Count 232, Mean Platelet Volume 7.6, Neutrophils (%) (Auto) 72.5, Lymphocytes (% ) (Auto) 15.6L, Monocytes (%) (Auto) 6.0, Eosinophils (%) (Auto) 5.5H, Basophils (%) (Auto) 0.5, Sodium Level 139, Potassium Level 3.6, Chloride Level 102, Carbon Dioxide Level 31, Anion Gap 6, Blood Urea Nitrogen 6L, Creatinine 0.8, Estimat Glomerular Filtration Rate > 60, Glucose Level 92, Calcium Level 9.2, Total Bilirubin 0.7, Aspartate Amino Transf (AST/SGOT) 38H, Alanine Aminotransferase (ALT/SGPT) 26, Alkaline Phosphatase 42L, Total Protein 6.7, Albumin 3.1L, Globulin 3.6, Albumin/Globulin Ratio 0.9L Height (Feet): 5 Height (Inches): 5.00 Weight (Pounds): 200 General Appearance: no apparent distress Respiratory/Chest: lungs clear Abdomen: soft Objective no change Sherman Martinez MD Apr 07, 2019 10:55
[2019-04-07 12:00] VITALS: BP 142/74
--- NOTE | 2019-04-07 12:33 | NUR ---
NURSE NOTES: Patient returned from CT in stable condition.
--- NOTE | 2019-04-07 12:40 | General Progress Note ---
Assessment/Plan Assessment/Plan: Assessment - acute N/V/D - resolved vomiting but still with pain - resolving CT picture of enteritis - Acute renal failure - resolved - Leukocytosis - resolved - Heme (+) stools - s/p EGD/colon (erosive antrum gastritis, patch of redness around IC valve) - Cocaine (+) screen Recommendations - PO diet ad nakia - agree with d/c dilaudid. will prescribe antispasmotics instead - Pepcid - Zofran PRN - IV hydration - abx - follow labs - If symptoms do not resolve, will consider capsule endoscopy Subjective Allergies: Coded Allergies: ASPIRIN (Unverified Adverse Reaction, Mild, GETS NAUSEATED., 02/28/16) PT STATES SHE GETS NAUSEATED. Subjective C/o some cramps after PO no vomiting some loose BM CT reviewed with radiologist - Small bowel thickening improved, but still present in distal small bowel some free fluid in pelvis Objective Last 24 Hour Vital Signs Date Time Temp Pulse Resp B/P (MAP) Pulse Ox O2 Delivery O2 Flow Rate FiO2 04/07/19 12:00 98.8 64 17 142/74 (96) 98 04/07/19 09:00 Room Air Room Air 04/07/19 07:57 98.9 72 16 112/65 (81) 97 04/07/19 04:00 98.6 65 17 113/67 (82) 93 04/07/19 00:00 98.4 75 17 112/62 (79) 92 04/06/19 21:00 Room Air Room Air 04/06/19 20:00 98.6 71 17 95/64 (74) 94 04/06/19 16:00 98.6 69 15 149/75 (99) 99 Intake and Output 04/06/19 04/07/19 19:00 07:00 Intake Total 950 ml 480 ml Output Total 0 ml Balance 950 ml 480 ml Intake Oral 600 ml 480 ml IV Total 350 ml Estimated Blood Loss 0 ml # Voids 4 3 Laboratory Tests 04/06/19 23:50: Urine Color Pale yellow, Urine Appearance Slightly cloudy, Urine pH 7, Urine Specific [place] 1.010, Urine Protein Negative, Urine Glucose (UA) Negative, Urine Ketones 1+H, Urine Blood 1+H, Urine Nitrite Negative, Urine Bilirubin Negative, Urine Urobilinogen Normal, Urine Leukocyte Esterase 1+H, Urine RBC 2- 4H, Urine WBC 2-4, Urine Squamous Epithelial Cells ManyH, Urine Amorphous Sediment ManyH, Urine Bacteria ModerateH 04/07/19 04:40: White Blood Count 8.9, Red Blood Count 3.64L, Hemoglobin 11.1L, Hematocrit 34.4L , Mean Corpuscular Volume 95, Mean Corpuscular Hemoglobin 30.6, Mean Corpuscular Hemoglobin Concent 32.3, Red Cell Distribution Width 14.2, Platelet Count 232, Mean Platelet Volume 7.6, Neutrophils (%) (Auto) 72.5, Lymphocytes (% ) (Auto) 15.6L, Monocytes (%) (Auto) 6.0, Eosinophils (%) (Auto) 5.5H, Basophils (%) (Auto) 0.5, Sodium Level 139, Potassium Level 3.6, Chloride Level 102, Carbon Dioxide Level 31, Anion Gap 6, Blood Urea Nitrogen 6L, Creatinine 0.8, Estimat Glomerular Filtration Rate > 60, Glucose Level 92, Calcium Level 9.2, Total Bilirubin 0.7, Aspartate Amino Transf (AST/SGOT) 38H, Alanine Aminotransferase (ALT/SGPT) 26, Alkaline Phosphatase 42L, Total Protein 6.7, Albumin 3.1L, Globulin 3.6, Albumin/Globulin Ratio 0.9L Height (Feet): 5 Height (Inches): 5.00 Weight (Pounds): 200 Objective WDWN NCAT supple CTA RRR abd soft ND NT no edema Moni Webster MD Apr 07, 2019 12:40
[2019-04-07] MEDS ORDERED: Hyoscyamine 0.125mg tab ORAL PRN (12:45)
--- NOTE | 2019-04-07 12:45 | NUR ---
CASE MANAGEMENT:REVIEW 04/07/19 SI: SEPSIS. COLITIS ABDOMINAL PAIN. DIARRHEA 98.8 64 17 142/74 98% ON RA H/H-11.1/34.4 IS: K-DUR PO BID PEPTO BISMOL PO 5X'S/DAY NEURONTIN PO TID IV DILAUDID 0.5MG Q4HRS PRN HEPARIN SQ Q12 PROTONIX PO Q12 MIDODRINE PO TID : MED/SURG STATUS 3 EAST DCP: WILL RETURN HOME UPON DISCHARGE
--- NOTE | 2019-04-07 12:54 | Diagnostic Imaging Report ---
Indication: Abdominal pain Technique: Continuous helical transaxial imaging of the abdomen and pelvis was obtained from the lung bases to the pubic symphysis during intravenous contrast administration. Coronal 2-D reformats were also obtained. Study obtained in a Siemens sensation [address] Automatic Exposure Control was utilized. Total Dose length Product (DLP): 899.[address] Dose Index Volume (CTDIvol): 17.73 mGy Comparison: 03/30/2019 Findings: There is persistent dilatation and wall thickening involving multiple loops of distal small bowel including the terminal ileum. This was seen on the previous occasion as well and appears slightly improved in that there is less involvement of the mid to proximal small bowel which was previously involved. There is a slightly greater amount of pelvic ascites on the current study compared to the last. In addition the left hemicolon namely the descending colon shows mild wall thickening. A few diverticula are also noted in the colon. The appendix is normal. The gas pattern is nonobstructive. There is contraction of the gallbladder. The liver and spleen, pancreas and kidneys, adrenal glands are unremarkable. There is no free air. IMPRESSION: Slightly improved enteritis now predominantly involving distal small bowel including the terminal ileum. Slightly increased pelvic ascites compared to the last study. Possible colitis involving the descending colon. Findings discussed with Dr. Webster via telephone The CT scanner at [facility] is accredited by the [employer] and the scans are performed using dose optimization techniques as appropriate to a performed exam including Automatic Exposure control.
--- NOTE | 2019-04-07 14:36 | NUR ---
*-* INSURANCE *-* UPDATED CLINICALS AND REVIEWS FAXED TO: DIOGENES BARKER: REE P- [phone] [id number] F- [phone]..........REVIEW/CLINICAL
[2019-04-07 16:00] VITALS: BP 128/71
[2019-04-07] MEDS ORDERED: DICYCLOMINE HCL10 MG ORAL (18:36)
[2019-04-07] MEDS ORDERED: BENTYL10 MG/1 ML IM (18:36)
[2019-04-07] MEDS ORDERED: TRAMADOL HCL50 MG ORAL (18:38)
[2019-04-07] MEDS: traMADol 50mg tab ORAL PRN (19:05)
--- NOTE | 2019-04-07 19:30 | NUR ---
NURSE NOTES: Patient discharged per order from Dr. Wiggins. Informed Dr. Wiggins that patient had 1 episode of diarrhea this morning with no subsequent episodes, MD is aware and stated patient may still be discharged and follow up with her PCP. Medication reconciliation reviewed with MD and entered, patient provided with prescription from Dr. Wiggins, reviewed and educated patient on medications. Discharge education/handouts reviewed with patient. Patient reports understanding of all provided discharge education. Patient educated to follow up with her primary care provider in one week. Patient reports her ride is not here yet and will be here closer to 8PM. Hand off given to Amanda RN. Endorsed to perform Tramadol reassessment and remove IV when discharged. Patient is in stable condition.
--- NOTE | 2019-04-07 19:35 | NUR ---
NURSE NOTES: Receive a report from CARRIE Brown. Done rounds. Waiting for family member to pick her up for discharge. Will continue to monitor.
--- NOTE | 2019-04-07 20:20 | NUR ---
NURSE NOTES: After pain medication pain relieved by pt's expression. Pt's family members are at bed side and is ready to go home. Remove IV and ID band. Pt took all her belongings and discharge paper work. Escorted by family members and unit FEED RESEARCH AIDE via a wheel chair to private car.
--- NOTE | 2019-04-08 08:23 | Discharge Summary ---
Discharge Summary Discharge Summary _ DATE OF ADMISSION: 03/31/2019 DATE OF DISCHARGE: 04/07/2019 DISCHARGED BY: REASON FOR ADMISSION: 59 years old female with past medical history of traumatic injury and chronic pain , presented with 4 days of nausea, vomiting, diarrhea and crampy abdominal pain , which prompted her to come to emergency room for further evaluation No blood in stool and vomitus. No fever or chills. She denied chest pain or shortness of breath. No dyspnea on exertion. She felt slightly dehydrated. Vital signs revealed blood pressure 72/55. Laboratory work-up revealed significant leukocytosis WBC 21.1. Stable hemoglobin and hematocrit. Potassium 3.4. BUN 27, creatinine 4.3. Glucose 144. Lactic acid 0.9. Stable LFT and lipase. EKG revealed sinus rhythm, no acute ischemic changes. Chest x-ray revealed no acute cardiopulmonary pathology. CT of the abdomen and pelvis demonstrated suspected enteritis/ileus. In ED patient received IV bolus, blood pressure slightly improved. Patient started on empiric antibiotics and admitted to ICU for further management. CONSULTANTS: ID specialist Dr. Platt GI specialist dr. Webster child welfare social worker Dr. Martinez [facility] COURSE: Patient admitted to ICU. Patient was on volume resuscitation and broad-spectrum antibiotics. Hemodynamic status was closely monitor with goal to keep mean arterial blood pressure above 65. Patient was short term on midodrine. Albumin x1 given. Blood pressure stabilized. No need for pressors. Echocardiogram revealed preserved ejection fraction 55 to 60% with no evidence of left ventricular hypertrophy. No evidence of pericardial effusion. Right ventricular systolic pressure of 28. Potassium was replaced. Gabapentin was hold , until renal function stabilized. Stool studies ordered. Renal ultrasound demonstrated normal bilateral kidney echogenicity. No hydronephrosis. Urine toxicology screen was positive for cocaine. Pain management was addressed. Symptomatic treatment provided. Stool for occult blood was positive. Patient subsequently undergone upper endoscopy and colonoscopy. During procedure patient was found to have incidental 2 to 3 cm hiatal hernia, erosive gastritis in the distal antrum, status post biopsy, random biopsy of normal duodenum and proximal stomach, normal terminal ileum, patch of erythema of the ileocecal valve of unclear significance, status post biopsy, rare diverticulosis, status post random biopsy of terminal ileum, right colon, and left colon, as well as a biopsy of the erythematous area around the ileocecal valve. At the time of this dictation biopsy results still pending. GI specialist recommended follow-up with biopsy results . Heme positive stool , per GI specialist, presumed to be due to erosive distal gastritis GI specialist recommended continue checking stools as outpatient for occult blood. If stool occult remains positive at follow-up, he recommended to consider capsule endoscopy . Patient started on diet as tolerated. Dilaudid was discontinued. Antispasmodic prescribed as needed. GI prophylaxis provided. IV hydration continued. Antiemetic were on board as needed. Repeated CT of the abdomen and pelvis revealed improved enteritis , now predominantly involving distal small bowel including the terminal ileum. Welfare Administrator followed. Patient was taken a lot of nonsteroidal anti-inflammatory medication. Acute kidney injury was most likely due to use of nonsteroidal anti- inflammatory medications. Urine studies were done. Welfare Administrator recommended to avoid nephrotoxic's. Electrolytes further corrected as needed. Prior to discharge BUN from 27 down to 6 and creatinine from 1.3 down to 0.8. Acute kidney injury resolved. Lipid panel revealed elevated triglycerides 205, elevated LDL 116. Patient was educated on low-fat low-cholesterol diet. Patient started on fish oil. Neurontin restarted. ID specialist followed. Patient initially was on broad-spectrum antibiotics. Blood culture were negative. Urine culture was negative. Stool for C. difficile was negative. Stool culture were negative. Stool for ova and parasite x1 was negative. Leukocytosis resolved. Antibiotic discontinued. ID specialist recommended to keep patient off antibiotics Patient was counseled regarding cocaine abuse. Patient clinically stabilized and was ready for discharge home. Outpatient follow-up with GI specialist to repeat stool for occult blood and consider capsule endoscopy if stool for occult blood positive. Follow up with biopsy results. 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 DISCHARGE INSTRUCTIONS: Patient was discharged home . Follow up with primary care provider in one week. I have been assigned to dictate discharge summary for this account. I was not involved in the patient's management. Barbara Flores NP Apr 08, 2019 08:23
--- NOTE | 2019-04-08 12:55 | NUR ---
*-* INSURANCE *-* DISCAHRGE SUMMARY HAS BEEN FAXED TO: DIOGENES RAJPUT: REE P- [phone] [id number] F- [phone]..........REVIEW/CLINICAL
== END 2019-04-07 20:20 | disposition home or self-care (01) | DRG 720 ==
LOC: EMR 23:00 → EDBEDREQSVC 03-31 00:07 → EDBEDREQTM 03-31 00:07 → ICU 03-31 00:57 → EDBEDREQ 03-31 01:39 → 3E 04-02 11:33
PROC: 0DB68ZX Excision of Stomach, Via Natural or Artificial Opening Endoscopic, Diagnostic (ICD-10-PCS; 2019-04-06)
PROC: 0DBB8ZX Excision of Ileum, Via Natural or Artificial Opening Endoscopic, Diagnostic (ICD-10-PCS; 2019-04-06)
PROC: 0DBF8ZX Excision of Right Large Intestine, Via Natural or Artificial Opening Endoscopic, Diagnostic (ICD-10-PCS; 2019-04-06)
PROC: 0DBG8ZX Excision of Left Large Intestine, Via Natural or Artificial Opening Endoscopic, Diagnostic (ICD-10-PCS; 2019-04-06)
PROC: 0DB98ZX Excision of Duodenum, Via Natural or Artificial Opening Endoscopic, Diagnostic (ICD-10-PCS; principal; 2019-04-06 07:08)
PROC: 0DB78ZX Excision of Stomach, Pylorus, Via Natural or Artificial Opening Endoscopic, Diagnostic (ICD-10-PCS; 2019-04-06 07:08)
DX: A41.9 Sepsis, unspecified organism (principal); R65.21 Severe sepsis with septic shock; N17.9 Acute kidney failure, unspecified; K52.9 Noninfective gastroenteritis and colitis, unspecified; E87.6 Hypokalemia; R57.1 Hypovolemic shock; G89.4 Chronic pain syndrome; G62.9 Polyneuropathy, unspecified; K29.00 Acute gastritis without bleeding; F14.10 Cocaine abuse, uncomplicated; T39.395A Adverse effect of other nonsteroidal anti-inflammatory drugs [NSAID], initial encounter; F17.200 Nicotine dependence, unspecified, uncomplicated; K57.90 Diverticulosis of intestine, part unspecified, without perforation or abscess without bleeding; K44.9 Diaphragmatic hernia without obstruction or gangrene; E83.42 Hypomagnesemia
CPT/HCPCS: 36415; 71045; 74176; 74177; 76770; 80048; 80053; 80061; 80307; 81001; 81003; 82270; 82533; 82550; 82553; 82977; 83036; 83605; 83690; 83735; 83880; 84100; 84165; 84443; 84550; 85007; 85025; 86140; 87040; 87045; 87081; 87086; 87324; 89050; 93005; 93306; 96361; 96374; 99291; J2405; J8499

== ENCOUNTER 2019-08-29 12:44 | Emergency (ER) | payer OTHER ==
[~2019-08-29] VITALS: Ht 172.7 cm; Wt 86.2 kg
[~2019-08-29 12:44] MED LIST changes: +BENTYL10 MG/1 ML IM; +DICYCLOMINE HCL10 MG ORAL
[2019-08-29 13:00] VITALS: BP 142/109
[2019-08-29] MEDS ORDERED: Morphine Sulfate 2mg/ml Inj(IV/IM USE ONLY) IVP ONE (13:15)
[2019-08-29] MEDS ORDERED: Omnipaque-300 100ml vial INJ PRN (13:15)
--- NOTE | 2019-08-29 13:22 | NUR ---
ED Nurse Note: IV line established. Blood specimen collected and sent to lab.
--- NOTE | 2019-08-29 13:32 | NUR ---
ED Nurse Note:pt. came from home with abdominal pain nausea vomiting, VSS, blood sent to labs ,given pain meds
--- NOTE | 2019-08-29 13:37 | NUR ---
ED Nurse Note: Xray at bedside.
[2019-08-29 14:08] LABS: HEMATOCRIT 51.3 % (37.0-47.0); HEMOGLOBIN 16.4 G/DL (12.0-16.0); MEAN CORPUSCULAR VOLUME 90 FL (80-99); PLATELET COUNT 376 K/UL (150-450); RED CELL DISTRIBUTION WIDTH 15.2 % (11.6-14.8); WHITE BLOOD COUNT 14.4 K/UL (4.8-10.8)
--- NOTE | 2019-08-29 14:13 | Emergency Room Report ---
History of Present Illness General Chief Complaint: Abdominal Pain Source: Medical Record Present Illness HPI 59-year-old female with history of BHAVESH, who was recently at [facility] in March 2019 for renal failure, cocaine abuse, opiate abuse here complaining of sudden onset of left flank and left frontal lower abdominal pain without radiation. Denies tingling or numbness. Complains of nausea and vomiting however denies diarrhea and constipation. Denies fever and chills. Patient reports any cocaine in the past 6 months however this past Friday she relapsed and used cocaine as well as drink alcohol. Keeps asking for more pain medication. Cures was done on patient and appears to be extensive. Denies chest pain, shortness of breath, palpitation, headache and dizziness at this time. Complains that she has not been able to urinate the past 1 day and it appears to be very similar to her symptoms as last time that she went through BHAVESH. Allergies: Coded Allergies: ASPIRIN (Unverified Adverse Reaction, Mild, GETS NAUSEATED., 02/28/16) PT STATES SHE GETS NAUSEATED. Patient History Past Medical History: see triage record Past Surgical History: none Pertinent Family History: unable to obtain Social History: Reports: alcohol use, drug use - cocaine Now: No Immunizations: UTD Reviewed Nursing Documentation: PMH: Agreed; PSxH: Agreed Nursing Documentation-PMH Past Medical History: No History, Except For Hx Cardiac Problems: Yes - bilateral hand nerve problems Hx Cancer: No Hx Gastrointestinal Problems: No Hx Neurological Problems: No Review of Systems All Other Systems: negative except mentioned in HPI Physical Exam Vital Signs Date Time Temp Pulse Resp B/P (MAP) Pulse Ox O2 Delivery O2 Flow Rate FiO2 08/29/19 12:56 95.0 110 20 142/109 (120) 97 Room Air Sp02 EP Interpretation: reviewed, normal General Appearance: no apparent distress, alert, GCS 15, non-toxic Head: normocephalic, atraumatic Eyes: bilateral eye normal inspection, bilateral eye PERRL ENT: hearing grossly normal, normal pharynx, no angioedema, normal voice Neck: full range of motion, supple, supple/symm/no masses Respiratory: chest non-tender, lungs clear, normal breath sounds, no rhonchi, no retraction, no wheezing, speaking full sentences Cardiovascular #1: regular rate, rhythm, no edema, no murmur, normal capillary refill Gastrointestinal: normal bowel sounds, non tender, soft, no mass, no organomegaly, no peritonitis, no bruit, non-distended, no guarding, no hernia, no pulsatile mass, no rebound Rectal: deferred Genitourinary: normal inspection, no CVA tenderness Musculoskeletal: back normal, normal range of motion, no calf tenderness, gait/ station normal, non-tender Neurologic: alert, motor strength/tone normal, oriented x3, sensory intact, responsive, speech normal Psychiatric: judgement/insight normal, memory normal, mood/affect normal, no suicidal/homicidal ideation Skin: no rash Lymphatic: no adenopathy Procedures Additional Procedure Procedure Narrative Boyer catheter Medical Decision Making PA Attestation All my diagnosis and treatment plans were reviewed ad discussed with my supervising physician Dr. Lanza Diagnostic Impression: Primary Impression: Enterocolitis Additional Impressions: UTI (urinary tract infection) Cocaine abuse Opiate use ER Course 59-year-old female with history of BHAVESH, who was recently at [facility] in March 2019 for renal failure, cocaine abuse, opiate abuse here complaining of sudden onset of left flank and left frontal lower abdominal pain without radiation. Denies tingling or numbness. Complains of nausea and vomiting however denies diarrhea and constipation. Denies fever and chills. Patient reports any cocaine in the past 6 months however this past Friday she relapsed and used cocaine as well as drink alcohol. Keeps asking for more pain medication. Cures was done on patient and appears to be extensive. Denies chest pain, shortness of breath, palpitation, headache and dizziness at this time. Complains that she has not been able to urinate the past 1 day and it appears to be very similar to her symptoms as last time that she went through BHAVESH. Ddx considered but are not limited to: enterocolitis, appendicitis, cholecystis , gastritis, gastroenteritis, UTI, pyelonephritis, SBO, diverticulitis, influenza with GI manifestation, nephropathy Vital signs: are WNL, pt. is afebrile H&PE are most consistent with: enterocolitis, UTI, cocaine abuse, opiate abuse ORDERS: abdominal CT, abdominal pain set, EKG, ciprofloxacin, Zofran, dicyclomine ED INTERVENTIONS: NS bolus, Zofran, Pepcid, morphine, Toradol, Rocephin DISCHARGE: At this time pt. is stable for d/c to home. Will provide printed patient care instructions, and any necessary prescriptions. Care plan and follow up instructions have been discussed with the patient prior to discharge. Drug-seeking behavior is noticed, patient to follow-up with her primary care provider, at this time no signs of BHAVESH noted. At first Toradol was not given due to patient's history however having a normal BUN/creatinine I switched to giving Toradol. Morphine was only administered at the beginning of patient's arrival. Patient to follow-up with toolsmith. Enterocolitis can be secondary to inflammatory causes or ischemic causes such as cocaine use. At this time patient to stop using cocaine and opiate use. Follow-up with her primary care physician. As well as manager gift. Boyer catheter was used to get a urine specimen from patient. EKG Diagnostic Results Rate: normal Rhythm: NSR ST Segments: no acute changes Chest X-Ray Diagnostic Results Chest X-Ray Diagnostic Results : Chest X-Ray Ordered: Yes # of Views/Limited/Complete: 1 View Indication: Other EP Interpretation: Yes PA Xray: Interpretation reviewed, by supervising MD, and agrees with findings. Interpretation: no consolidation, no effusion, no pneumothorax Impression: No acute disease Electronically Signed by: Mariluz Ortega PA-C CT/MRI/US Diagnostic Results CT/MRI/US Diagnostic Results : Imaging Test Ordered: CT abdomen pelvis with contrast Impression CT ABDOMEN & PELVIS With Contrast: Findings suggesting infectious or inflammatory enterocolitis, with segmental wall thickening of distal/terminal ileum, and additional separate mild wall thickening in the distal descending colon and sigmoid colon. No evidence of bowel obstruction. Trace free fluid in the pelvis. No free air. Boyer catheter within the decompressed urinary bladder lumen. Last Vital Signs Date Time Temp Pulse Resp B/P (MAP) Pulse Ox O2 Delivery O2 Flow Rate FiO2 08/29/19 13:30 92 20 Room Air 08/29/19 13:00 95.0 142/109 97 Disposition: HOME, SELF-CARE Condition: Stable Scripts Ciprofloxacin Hcl* (CIPROFLOXACIN HCL*) 500 Mg Tablet 500 MG ORAL EVERY 12 HOURS for 10 Days, #20 TAB 0 Refills Prov: Mariluz Ureña 08/29/19 Ondansetron (Zofran) 4 Mg Tablet 4 MG ORAL Q6H PRN for Nausea & Vomiting, #14 TAB Prov: Mariluz Ureña 08/29/19 Dicyclomine Hcl* (DICYCLOMINE HCL*) 10 Mg Capsule 10 MG ORAL TID, #10 CAP Prov: Mariluz Ureña 08/29/19 Referrals: NON PHYSICIAN (PCP) Patient Instructions: Abdominal Pain, Adult, Colitis, Stimulant Use Disorder- Cocaine Additional Instructions: Follow-up with a toolsmith, follow-up with your primary care provider, at this time renal function is within normal limits you do have a urinary tract infection. You also have an active prescription for narcotic given to you by your doctor and no further narcotic medications can be given. You can take regular Tylenol or ibuprofen for pain. Mariluz Ureña Aug 29, 2019 14:13
[2019-08-29 14:20] LABS: APPEARANCE,URINE CLOUDY; BILIRUBIN, URINE 2+ (NEGATIVE); GLUCOSE, URINE (UA) 1+ (NEGATIVE); KETONES,URINE 2+ (NEGATIVE); LEUKOCYTE ESTERASE ,URINE 1+ (NEGATIVE); NITRITE,URINE POSITIVE (NEGATIVE); PH,URINE 5 (4.5-8.0); PROTEIN,URINE 3+ (NEGATIVE); UROBILINOGEN,URINE 1 MG/DL (0.0-1.0)
[2019-08-29 14:20] LABS: ANION GAP 14 mmol/L (5-15); BLOOD UREA NITROGEN 13 mg/dL (7-18); CALCIUM 10.4 MG/DL (8.5-10.1); CARBON DIOXIDE 26 MMOL/L (21-32); CHLORIDE 102 MMOL/L (98-107); CREATININE 1.1 MG/DL (0.55-1.30); POTASSIUM 3.3 MMOL/L (3.5-5.1); SODIUM 142 MMOL/L (136-145)
[2019-08-29 14:24] LABS: ALANINE AMINOTRANSFERASE 16 U/L (12-78); ALBUMIN 4.2 G/DL (3.4-5.0); ALBUMIN/GLOBULIN RATIO 0.8 (1.0-2.7); ALKALINE PHOSPHATASE 80 U/L (46-116); ASPARTATE AMINO TRANSFERASE 18 U/L (15-37); BILIRUBIN,TOTAL 0.7 MG/DL (0.2-1.0)
[2019-08-29 14:30] LABS: COLOR,URINE YELLOW
--- NOTE | 2019-08-29 14:40 | NUR ---
ED Nurse Note: Patient was taken for CT.
[2019-08-29 15:03] VITALS: BP 107/57
[2019-08-29] MEDS ORDERED: Lidocaine 1% MPF 10mg/ml 5ml INJ ONE (15:30)
[2019-08-29] MEDS ORDERED: Ketorolac 30mg Inj IV ONE (15:45)
--- NOTE | 2019-08-29 15:55 | Diagnostic Imaging Report ---
Indication: Abdominal pain Technique: Continuous helical transaxial imaging of the abdomen and pelvis was obtained from the lung bases to the pubic symphysis during intravenous contrast administration. Coronal 2-D reformats were also obtained. Study obtained in a Siemens sensation [address] Automatic Exposure Control was utilized. Total Dose length Product (DLP): 1351.[address] Dose Index Volume (CTDIvol): 24 mGy Comparison: 04/07/2019 Findings: The lung bases are clear. Trace amount of free fluid noted. There is a wall thickening involving the terminal ileum which is also mildly distended. The colon is diffusely nondistended but that there is suggestion of mild wall thickening, which is questionable. The liver, kidneys, spleen and pancreas, gallbladder appear unremarkable. There is no adrenal mass. There is no evidence of bowel obstruction. Urinary bladder is nondistended. Boyer catheter noted. Lung bases are clear. IMPRESSION: Terminal ileitis. Consider Crohn's disease or infection. Question of colitis as well. Trace free fluid within the pelvis. No definite abscess. [facility] has communicated the preliminary results to the Emergency Department. Their findings are largely concordant with this report. The CT scanner at [facility] is accredited by the [employer] and the scans are performed using dose optimization techniques as appropriate to a performed exam including Automatic Exposure control.
[2019-08-29] MEDS ORDERED: ZOFRAN4 M1 ORAL (16:14)
[2019-08-29] MEDS ORDERED: CIPROFLOXACIN500 M2 ORAL (16:14)
[2019-08-29] MEDS ORDERED: DICYCLOMINE HCL10 MG ORAL (16:14)
[2019-08-29 16:32] VITALS: BP 115/78
--- NOTE | 2019-08-29 16:32 | NUR ---
ED Nurse Note: Pt cleared by ERMD for discharge. DC instructions/prescription was given and explained to pt and verbalized understanding of teachings. All medical deviecs such as ID band and IV line removed. Pt is AAO x4, ambulatory and left with all personal belongings. Accompanied by family member.
--- NOTE | 2019-08-30 12:51 | Diagnostic Imaging Report ---
Indication: Dyspnea Comparison: 03/30/2019 A single view chest radiograph was obtained. Findings: Cardiomediastinal appearance is within normal limits for age. The lungs are clear. Pulmonary vascularity is appropriate. The diaphragmatic contour is smooth and costophrenic angles are sharp. No pleural effusions are identified. The bones are unremarkable. Impression: No acute findings
== END 2019-08-29 16:32 | disposition home or self-care (01) ==
LOC: EMR 12:54
DX: K52.9 Noninfective gastroenteritis and colitis, unspecified (principal); N39.0 Urinary tract infection, site not specified; F14.10 Cocaine abuse, uncomplicated; F11.90 Opioid use, unspecified, uncomplicated; Z88.6 Allergy status to analgesic agent
CPT/HCPCS: 36415; 51702; 71045; 74177; 80053; 80307; 81003; 83690; 83880; 84484; 85007; 85025; 85610; 85730; 86850; 86900; 86901; 87086; 93005; 96361; 96372; 96374; 96375; G0480; J0696; J1885; J2270; J2405; J7030; Q9967; S0028; Z7502; 99284

== ENCOUNTER 2020-03-28 12:17 | Emergency (ER) | payer OTHER ==
[~2020-03-28] VITALS: Ht 167.6 cm; Wt 108.9 kg
[~2020-03-28 12:17] MED LIST changes: +CIPROFLOXACIN500 M2 ORAL
[2020-03-28 12:31] VITALS: BP 141/62
[2020-03-28] MEDS ORDERED: ROBAXIN-500MG ORAL (12:37)
[2020-03-28] MEDS ORDERED: GABAPENTIN600 MG ORAL (12:38)
--- NOTE | 2020-03-28 13:40 | Emergency Room Report ---
History of Present Illness General Chief Complaint: Back Pain-No Injury Source: Patient Present Illness HPI 60 YO Female presents to ED c/o LBP 06/17 in severity with radiation down the post. thighs bilaterally. Pt. Denies trauma or fall. Pt. reports acute onset after having a coughing fit after eating some really hot horseradish. Pt. reports pain with lying flat. mild relief with pillow under both legs or with between her knees when lying on her side. Pt .denies midline spinal tenderness or pain. Pt. denies fevers or chills. Denies numbness tingling or loss of sensation or gross motor movements of the extremities, incontinence of bowel or bladder. Denies CP, Palpitations, LOC, AMS, dizziness, Changes in Vision, weakness or a sudden severe headache. Pt. currently taking [place] rx'd to her for chronic pain. She denies recent spinal injections or procedures. Allergies: Coded Allergies: ASPIRIN (Unverified Adverse Reaction, Mild, GETS NAUSEATED., 02/28/16) PT STATES SHE GETS NAUSEATED. COVID-19 Screening Contact w/high risk pt: No Experienced COVID-19 symptoms?: No COVID-19 Testing performed CONDUIT CLEANER: No Patient History Past Medical History: none Past Surgical History: none Now: No Reviewed Nursing Documentation: PMH: Agreed; PSxH: Agreed Nursing Documentation-PMH Past Medical History: No History, Except For Hx Cardiac Problems: No - bilateral hand nerve problems Hx Hypertension: No - Back injury Hx Pacemaker: No Hx Asthma: No Hx COPD: No Hx Diabetes: No Hx Cancer: No Hx Gastrointestinal Problems: No Hx Dialysis: No History Of Psychiatric Problem: No Hx Neurological Problems: No Hx Cerebrovascular Accident: No Hx Seizures: No Review of Systems All Other Systems: negative except mentioned in HPI Physical Exam Vital Signs Date Time Temp Pulse Resp B/P (MAP) Pulse Ox O2 Delivery O2 Flow Rate FiO2 03/28/20 12:31 98.4 73 15 141/62 (88) 97 Room Air Sp02 EP Interpretation: reviewed, normal General Appearance: no apparent distress, alert, GCS 15, non-toxic Head: normocephalic, atraumatic Eyes: bilateral eye normal inspection, bilateral eye PERRL ENT: hearing grossly normal, normal voice Neck: full range of motion Respiratory: lungs clear, normal breath sounds, speaking full sentences Cardiovascular #1: regular rate, rhythm Cardiovascular #2: 2+ dorsalis pedis (R) - post. tib, 2+ dorsalis pedis (L) - post. tib Gastrointestinal: non tender, soft Rectal: deferred Genitourinary: normal inspection, no CVA tenderness Musculoskeletal: normal range of motion, gait/station normal, tender - lumbar paraspinal musculature bilaterally left side > than right. no midline spinous process tenderness, palpable step off or obvious deformity. Pain with straight leg raise bilat. sensation is equal bilaterally. Neurologic: alert, motor strength/tone normal, DTRs symmetric - Achilles and knees, oriented x3, sensory intact, responsive, speech normal Psychiatric: judgement/insight normal Skin: normal color Medical Decision Making PA Attestation Dr. Hay Is my supervising Physician whom patient management has been discussed with. Diagnostic Impression: Primary Impression: Spasm of back muscles Additional Impression: Low back pain Qualified Codes: M54.5 - Low back pain ER Course 60 YO Female presents to ED c/o LBP 06/17 in severity with radiation down the post. thighs bilaterally. Pt. Denies trauma or fall. Pt. reports acute onset after having a coughing fit after eating some really hot horseradish. Pt. reports pain with lying flat. mild relief with pillow under both legs or with between her knees when lying on her side. Pt .denies midline spinal tenderness or pain. Pt. denies fevers or chills. Denies numbness tingling or loss of sensation or gross motor movements of the extremities, incontinence of bowel or bladder. Denies CP, Palpitations, LOC, AMS, dizziness, Changes in Vision, weakness or a sudden severe headache. Pt. currently taking [place] rx'd to her for chronic pain. She denies recent spinal injections or procedures. Ddx considered: epidural abscess, fracture, sprain/strain, meningitis, spinal chord injury, sciatica, cauda equina, Pyelonephritis, renal calculi just to name a few. Vital signs reviewed and are WNL during ED visit. Pt. is afebrile with no signs of infection No new symptoms, and denies recent trauma. No saddle anesthesia noted, Pt. denies incontinence Neurovascular is intact ROM is limited due to pain *Mild Tenderness to palpation to paraspinal muscles of the lower back with midline tenderness. *Pt. describes pain today as moderate and radiates across the lower back. ORDERS: none warranted at this time. INTERVENTIONS: - 30mg IM Toradol - 1g Robaxin PO -Lidoderm TP. D/W Pt. that for further pain management is it recommended to consult PCP or a Chronic Pain management doctor. A provider who can safely prescribe additional controlled substances with close follow up. Also d/w pt. to inquire with her PCP regarding possible physical therapy. DISCHARGE: At this time pt. is stable for d/c to home. Will provide printed patient care instructions, and any necessary prescriptions. Care plan and follow up instructions have been discussed with the patient prior to discharge. Last Vital Signs Date Time Temp Pulse Resp B/P (MAP) Pulse Ox O2 Delivery O2 Flow Rate FiO2 03/28/20 12:31 98.4 73 15 141/62 97 Room Air Disposition: HOME, SELF-CARE Condition: Stable Patient Instructions: Back Pain, Adult Additional Instructions: ~ ~ An emergent medical condition has not been identified based on this patients presentation, exam and any necessary testing/imaging. The patient is determined to be stable for outpatient follow-up and management of symptoms by a primary care provider. Take medications as directed. Do not drink alcohol, drive, or operate heavy machinery while taking Robaxin ( Muscle Relaxers) as this may cause drowsiness. Follow up with a Primary Care Provider in 3-5 days, even if your symptoms have resolved. May require spinal specialist eval if symptoms do not resolve. non-emergent imaging such as MRI and/or physicial therapy. --Please review list of primary care clinics, if you do not already have a primary care provider Return sooner to ED if new symptoms occur, or current symptoms become worse. - Please note that this Emergency Department Report was dictated using [employer] inspector technology software, occasionally this can lead to erroneous entry secondary to interpretation by the dictation equipment. Renetta Etienne Mar 28, 2020 13:40
[2020-03-28] MEDS ORDERED: LIDODERM700 M1 TOPIC (13:42)
[2020-03-28] MEDS ORDERED: ROBAXIN-750750 MG PO (13:42)
[2020-03-28] MEDS ORDERED: Ketorolac 30mg Inj IM ONE (13:45)
[2020-03-28] MEDS ORDERED: Methocarbamol 500mg tab ORAL ONE (13:45)
[2020-03-28 13:50] VITALS: BP 128/61
[2020-03-28 14:03] VITALS: BP 128/61
== END 2020-03-28 14:00 | disposition home or self-care (01) ==
LOC: EMR 13:48
DX: M54.5 Low back pain (principal); M62.830 Muscle spasm of back; Z88.6 Allergy status to analgesic agent
CPT/HCPCS: 96372; J1885; Z7502; 99283

== ENCOUNTER 2020-06-23 11:22 | Emergency (ER) | payer OTHER ==
[~2020-06-23] VITALS: Ht 167.6 cm; Wt 107.0 kg
[~2020-06-23 11:22] MED LIST changes: +GABAPENTIN600 MG ORAL; +LIDODERM700 M1 TOPIC; +ROBAXIN-500MG ORAL; +ROBAXIN-750750 MG PO
[2020-06-23 11:30] VITALS: BP 121/51
--- NOTE | 2020-06-23 11:30 | NUR ---
ED Nurse Note: PT walked in to ed with cane for C/O pain to left knee and foot after a fll that occured yesterday. denies hitting her head.
[2020-06-23] MEDS ORDERED: Ketorolac 30mg Inj IM ONE ×2 (12:00→13:45)
[2020-06-23] MEDS ORDERED: Acetaminophen 500mg (ES) tab ORAL ONE (12:00)
--- NOTE | 2020-06-23 12:03 | Emergency Room Report ---
History of Present Illness General Chief Complaint: Multiple Trauma/Fall Source: Patient Present Illness HPI 60-year-old female presents with left knee pain after mechanical fall yesterday, patient endorses sharp pain with movement she denies any dislocation of the knee she was ambulatory afterwards, no weakness patient ambulates with a cane alleviated with rest patient presents for evaluation and treatment Allergies: Coded Allergies: ASPIRIN (Unverified Adverse Reaction, Mild, GETS NAUSEATED., 02/28/16) PT STATES SHE GETS NAUSEATED. COVID-19 Screening Contact w/high risk pt: No Experienced COVID-19 symptoms?: No COVID-19 Testing performed TIER OVER: No Patient History Past Medical History: see triage record Last Menstrual Period: na Reviewed Nursing Documentation: PMH: Agreed; PSxH: Agreed Nursing Documentation-PMH Past Medical History: No History, Except For Hx Cardiac Problems: No - bilateral hand nerve problems Hx Hypertension: No - Back injury Hx Pacemaker: No Hx Asthma: No Hx COPD: No Hx Diabetes: No Hx Cancer: No Hx Gastrointestinal Problems: No Hx Dialysis: No Hx Neurological Problems: No Hx Cerebrovascular Accident: No Hx Seizures: No Review of Systems All Other Systems: negative except mentioned in HPI Physical Exam Vital Signs Date Time Temp Pulse Resp B/P (MAP) Pulse Ox O2 Delivery O2 Flow Rate FiO2 06/23/20 11:26 98.1 84 16 121/51 (74) 98 Room Air General Appearance: well appearing, no apparent distress Head: normocephalic, atraumatic ENT: hearing grossly normal, normal voice Neck: full range of motion, supple Respiratory: no respiratory distress, speaking full sentences Musculoskeletal: other - Left lower extremity: 2+ PT DP fires EHL 5/5 plantar dorsiflexion at the ankle, knee flexion extension intact pain limits categorization of strength appears to be intact, valgus varus stress negative anterior posterior drawer negative no ligamentous injury, 2+ popliteal pulse Neurologic: alert, normal gait Psychiatric: mood/affect normal Skin: no rash Medical Decision Making Diagnostic Impression: Primary Impression: Contusion of left knee Qualified Codes: S80.02XA - Contusion of left knee, initial encounter ER Course 60-year-old female presents with contusion of the left knee, no evidence of fracture dislocation, will provide patient with pain medication and a wrap Disposition home with return precautions follow-up with PCP referral to Ortho Other X-Ray Diagnostic Results Other X-Ray Diagnostic Results : X-Ray ordered: Left knee # of Views/Limited Vs Complete: 3 View Indication: Pain EP Interpretation: Yes Interpretation: no dislocation, no fractures Impression: No acute disease Electronically Signed by: Tito Hay MD Last Vital Signs Date Time Temp Pulse Resp B/P (MAP) Pulse Ox O2 Delivery O2 Flow Rate FiO2 06/23/20 11:30 98.1 86 16 121/51 98 Room Air Disposition: HOME, SELF-CARE Condition: Stable Scripts Lidocaine Patch* (Lidoderm Patch*) 1 Each Adh..patch 1 PATCH TOPIC DAILY, #7 PATCH 0 Refills Patch(es) may remain in place for up to 12 hours in any 24-hour period. Prov: Tito Hay MD 06/23/20 Acetaminophen (Tylenol) 325 Mg Tablet 650 MG ORAL Q6H PRN for Prn Pain/Headache/Temp > 101, #30 TAB 0 Refills Prov: Tito Hay MD 06/23/20 Ibuprofen* (MOTRIN*) 600 Mg Tablet 600 MG ORAL Q8H PRN for FOR PAIN, #30 TAB 0 Refills Prov: Tito Hay MD 06/23/20 Referrals: Orthopedic Urgent Care Patient Instructions: Knee Pain, [id number], Knee Sprain, [id number] Additional Instructions: The patient was provided with discharge instructions, notified to follow-up with a primary care doctor and or specialist in the next 24-48 hours, and to return to the ED if they have worsening of their symptoms. Please note that this report is being documented using [employer] technology. This can lead to erroneous entry secondary to incorrect interpretation by the dictating instrument. Tito Hay MD Jun 23, 2020 12:03
--- NOTE | 2020-06-23 12:27 | NUR ---
ED Nurse Note: resting in bed without distress.
[2020-06-23] MEDS ORDERED: LIDODERM700 M1 TOPIC (13:45)
[2020-06-23] MEDS ORDERED: IBUPROFEN600 M1 ORAL (13:45)
[2020-06-23] MEDS ORDERED: TYLENOL325 MG ORAL (13:45)
[2020-06-23 14:00] VITALS: BP 121/51
--- NOTE | 2020-06-23 14:00 | NUR ---
ED Nurse Note:mikaela wrap placed on left knee Pt cleared by health care Provider for discharge. DC instructions/prescription was given and explained to pt and verbalized understanding of teachings. All medical deviecs such as ID band removed. Pt is AAO x4, ambulatory and left with all personal belongings.
--- NOTE | 2020-06-23 16:08 | Diagnostic Imaging Report ---
Indication: Knee pain, status post fall yesterday Technique: 3 views of the left knee Comparison: None Findings: There is medial and lateral compartmental degenerative joint space narrowing with associated osteophytes. No definite effusion. No acute fractures. No dislocations. Impression: Degenerative changes No acute bony trauma
== END 2020-06-23 14:00 | disposition home or self-care (01) ==
LOC: EMR 12:00
DX: S80.02XA Contusion of left knee, initial encounter (principal); W19.XXXA Unspecified fall, initial encounter; Y92.9 Unspecified place or not applicable; Z88.6 Allergy status to analgesic agent
CPT/HCPCS: 73562; 96372; J1100; J1885; Z7502; 99283